=== PATIENT | female | born 1940 | race Caucasian/White ===

== ENCOUNTER 2022-08-25 09:24 | Observation (INO) | payer OTHER, SELFPAY ==
--- NOTE | ~2022-08-25 | CT_ITS ---
EXAMINATION: CT abdomen pelvis wo con DATE: 08/25/2022 10:47 INDICATION: Right upper quadrant abdominal pain, nausea and vomiting. TECHNIQUE: Computed tomography (CT) of the abdomen and pelvis was performed without intravenous contr ast. (The patient reportedly has an iodine allergy.) Automated exposure control and iterative reconst ruction technique were employed. Exam dose: 1126.25 mGy-cm total exam DLP. COMPARISON: None. FINDINGS: There is moderate elevation of the right diaphragm and mild right basilar atelectasis. Normal heart size. Coronary artery calcifications. No pericardial effusion. Slight right pleural effu aimee. There is cholelithiasis. There is gallbladder wall thickening and wide pericholecystic fat stranding, consistent with acute cholecystitis. There is some fat stranding around the pancreatic head and neck and to lesser extent body. Acute inte rstitial pancreatitis is not excluded. No hepatic, splenic, pancreatic space-occupying mass lesion. Normal morphology of the adrenal glands. 1.7 cm probable cyst in the lower pole right kidney. Pinpoint nonobstructing lower pole left renal calculus. No ureteral calculus or hydroureteronephrosis . The urinary bladder is evacuated. Status post hysterectomy. There is atherosclerotic calcification but normal caliber of the abdominal aorta. No intraperitoneal or retroperitoneal or pelvic mass lesion or adenopathy or ascites. There are numerous diverticula of the sigmoid and descending colon, with minimal involvement of the t ransverse colon; no CT evidence of diverticulitis. No bowel obstruction or intraperitoneal free air. There is a small amount of free fluid in the dependent pelvis on the right. Prominent bilateral hip osteoarthritis. No suspicious osteolytic or osteoblastic lesions IMPRESSION: Acute cholecystitis. Cholelithiasis Peripancreatic fat stranding; acute interstitial pancreatitis is suggested 1.7 cm probable cyst, lower pole right kidney Pinpoint nonobstructing lower pole left renal calculus Diverticulosis of the colon Status post hysterectomy Reviewed, dictated and finalized at [facility] Reviewed, dictated and finalized at [facility].
[2022-08-25 09:28] VITALS: BP 138/76; PULSE 88; RESP 18; TEMP 37.1; O2SAT 97
[2022-08-25 09:46] LABS: Hematocrit 41.1 % (37.0-47.0); Hemoglobin 13.6 g/dL (12.0-15.0); Mean Corpuscular HGB Conc 33.1 g/dl (32-36); Mean Corpuscular Volume 84.6 fl (80-100); Mean Platelet Volume 9.8 fl (7.4-10.4); Platelet Count Result 265 k/mm3 (150-375); Red Blood Count 4.86 M/mm3 (4.2-5.4); Red Cell Distribution Width 14.6 % (11.5-14.5); White Blood Count 27.9 K/mm3 (4.5-10.0)
[2022-08-25 09:54] LABS: Alanine Aminotransferase 18 U/L (6-35); Alkaline Phosphatase 112 U/L (38-126); Anion Gap 9 mmol/L (8-16); Aspartate Amino Transferase 23 U/L (14-36); Bilirubin,Total 1.3 mg/dL (0.2-1.3); Blood Urea Nitrogen 19 mg/dL (7-17); Calcium 8.8 mg/dL (8.4-10.2); Carbon Dioxide 27 mmol/L (22-30); Chloride 94 mmol/L (98-107); Estimated CRCL calculation 48 ml/min; Estimated Glomerular Filt Rate > 60; Glucose 116 mg/dL (65-110); Potassium 3.5 mmol/L (3.4-5.0); Sodium 130 mmol/L (137-145)
[2022-08-25 10:05] LABS: Appearance Urine Clear (Clear); Bilirubin Urine 1+ (Negative); Blood Urine 2+ (Negative); Color Urine Yellow (Yellow); Glucose Urine UA Negative (Negative); Ketones Urine Trace mg/dL (Negative); Leukocyte Esterase Ur Negative LEU/UL (Negative); Nitrate Urine Negative (Negative); Protein Urine 2+ mg/dL (Negative)
[2022-08-25 10:09] LABS: Lipase < 10 U/L (23-300)
[2022-08-25 10:13] LABS: Bacteria Urine 2+ /hpf; Cellular Casts Urine Present /lpf; Mucus Urine Rare /lpf; Squamous Epithelial Cell Urine Few /hpf (Few)
[2022-08-25 10:14] LABS: Add Urine Microscopic? YES
--- NOTE | 2022-08-25 10:21 | ED.ABDPAIN ---
HPI - Abdominal Pain General Chief Complaint: Abdominal Pain <EDEL Mccann Last Filed: 08/25/22 15:23> Stated Complaint: ABD PAIN <EDEL Mccann Last Filed: 08/25/22 15:23> Time Seen by Provider: 08/25/22 09:58 <EDEL Mccann Last Filed: 08/25/22 15:23> Source: patient <EDEL Mccann Last Filed: 08/25/22 15:23> Mode of arrival: ambulatory <EDEL Mccann Last Filed: 08/25/22 15:23> Limitations: no limitations <EDEL Mccann Last Filed: 08/25/22 15:23> History of Present Illness HPI narrative: Patient is an 82-year-old female who presents to the ED with report of abdominal pain, nausea, vomiting. Patient reports she first developed pain in her upper abdomen and nausea 2 days ago. She had [place] food Wednesday night and thought it may be food poisoning. She has taken her daughters Phenergan and leftover [place] at home which does provide some relief. Pain became worse today, which prompted her presentation. She states it has been constant for the most part. She had 1 episode of diarrhea this morning, no rectal bleeding. No fever. No urinary symptoms. She has not taken anything for her pain today. <EDEL Mccann Last Filed: 08/25/22 15:23> Related Data Home Medications: Home Medications Medication Instructions Recorded Confirmed aspirin 81 mg tablet 81 mg PO DAILY 08/25/22 08/25/22 calcium 600 mg (1,500 mg)-vit 600 tablet PO DAILY 08/25/22 08/25/22 C-vit D2 200 unit-vit E-minerals tablet citalopram 20 mg tablet 10 mg PO DAILY 08/25/22 08/25/22 fluticasone furoate 200 200 inh inhalation DAILY 08/25/22 08/25/22 mcg-vilanterol 25 mcg/dose inhalation powder (Breo Ellipta) hydrochlorothiazide 12.5 mg tablet 12.5 mg PO DAILY 08/25/22 08/25/22 montelukast 10 mg tablet 10 mg PO DAILY 08/25/22 08/25/22 omeprazole 20 mg capsule,delayed 20 mg PO DAILY 08/25/22 08/25/22 release <EDEL Mccann Last Filed: 08/25/22 15:23> Allergies/Adverse Reactions: Allergies Allergy/AdvReac Type Severity Reaction Status Date / Time amoxicillin [From Augmentin] Allergy Rash Verified 08/25/22 09:55 azithromycin [From Zithromax] Allergy Rash Verified 08/25/22 09:55 clavulanic acid Allergy Rash Verified 08/25/22 09:55 [From Augmentin] doxycycline Allergy Rash Verified 08/25/22 09:55 iodine Allergy Anaphylaxis Verified 08/25/22 09:55 norepinephrine Allergy Unknown Verified 08/25/22 09:55 [From Levophed (bitartrate)] Sulfa (Sulfonamide Allergy Rash Verified 08/25/22 09:55 Antibiotics) <EDEL Mccann Last Filed: 08/25/22 15:23> Review of Systems Review of Systems: CONSTITUTIONAL: Denies fever, chills, or sweats. CARDIOVASCULAR: Denies chest pain. RESPIRATORY: Denies dyspnea. GASTROINTESTINAL: Reports upper abdominal pain, N/V/D. Denies rectal bleeding. GENITOURINARY: Denies dysuria or hematuria. <EDEL Mccann Last Filed: 08/25/22 15:23> All systems reviewed & are unremarkable except as noted in HPI and below <EDEL Mccann Last Filed: 08/25/22 15:23> [facility] Past Medical History Medical History: Medical History Asthma Depression GERD (gastroesophageal reflux disease) HTN (hypertension) <EDEL Mccann Last Filed: 08/25/22 15:23> Surgical History Surgical History: Surgical History (Updated 08/25/22 @ 17:01 by Rosalind Anderson NP) H/O cataract extraction History of hysterectomy History of tonsillectomy <EDEL Mccann Filed: 08/25/22 15:23> Family History Family History: Family History Mother Lung disease Son Acute myocardial infarction Son Involved in airplane accident <Carmen Duong PA-C - Last Filed:
[2022-08-25 10:47] LABS: Band Neutrophils Percent 14 % (0-6); Lymphocytes Absolute Manual 2.51 K/mm3 (1.1-4.5); Monocytes Absolute Manual 0.55 K/mm3 (0.1-0.90); Monocytes Percent Manual 2 % (3-9); Neutrophils Absolute Manual 24.83 K/mm3 (1.7-7.2); Neutrophils Percent Manual 75 % (46-73); Platelet Estimate Adequate (Adequate); Schistocytes None Seen (NORMAL); Total Cells Counted 100
[2022-08-25] MEDS: ONDANSETRON INJ 4 MG/2 ML VIAL IV PUSH (10:56)
[2022-08-25] MEDS: SODIUM CHLORIDE 0.9% IV 1,000 ML 999 ML IV CONT (10:56)
[2022-08-25 11:06] LABS: Lactic Acid Reflex 1.1 mmol/L (0.7-2.0)
[2022-08-25 11:21] VITALS: BP 144/60; PULSE 71; RESP 16; O2SAT 97
[2022-08-25] MEDS: metroNIDAZOLE 500 MG/ISO 100ML 500 MG/100 ML BAG 100 MG IVPB ×2 (12:08→22:57)
[2022-08-25] MEDS: CIPROFLOXACIN 400 MG/D5W 200ML 200 ML 200 MG IVPB ×2 (12:38→21:21)
--- NOTE | 2022-08-25 13:18 | PM.IMHP ---
H&P: HPI History of Present Illness Date/Time: 08/25/22 13:18 Chief Complaint: Abdominal pain Narrative: This is a 82-year-old female patient who was complaining of abdominal pain nausea vomiting. She has been complaining of right upper quadrant pain for at least the last 2 days. She ate some Italian food on Wednesday night and thought that she had food poisoning. The patient had taken her daughters [place] and Phenergan at home which provided some relief. Her pain became worse today and prompted her to come to the emergency room. The pain has been constant pain most of the time. She also had an episode of diarrhea this morning but no rectal bleeding. No fever chills. Her white count is found to be 27.9. Sodium is 130. She has 2+ urine bacteria. Abdominal pelvis CT was read as the following.MPRESSION:? Acute cholecystitis. Cholelithiasis Peripancreatic fat stranding; acute interstitial pancreatitis is suggested 1.7 cm probable cyst, lower pole right kidney Pinpoint nonobstructing lower pole left renal calculus Diverticulosis of the colon Status post hysterectomy Surgery has been consulted. The patient was started on Cipro and Flagyl. The surgeon has already seen the patient in the patient agrees to go on with surgery. The patient was started on Cipro and Flagyl on IV fluids in the emergency room. The patient is going to be admitted to observation status on the date of service of 08/25/2022. Review of Systems Review of Systems: See HPI All systems reviewed & are unremarkable except as noted in HPI and below Constitutional: Constitutional: Reports as per HPI and Reports no additional constitutional complaints Eyes: Eyes: Reports as per HPI and Reports no additional eye complaints ENT: Reports system reviewed and no additional complaints, except as documented and Reports Normal hearing present Cardiovascular: Cardiovascular: Reports no additional cardiovascular complaints Respiratory: Respiratory: Reports no additional respiratory complaints and Reports no additional respiratory complaints Gastrointestinal: Gastrointestinal: Reports as per HPI and Reports no additional gastrointestinal complaints Musculoskeletal: Musculoskeletal: Reports no additional musculoskeletal complaints Integumentary/Breasts: Skin/Breast: Reports system reviewed and no additional complaints, except as docu and Reports as per HPI Neurologic: Reports system reviewed and no additional complaints, except as documented, Reports as per HPI and Reports Normal hearing present Psychiatric: Psychiatric: Reports no additional psychiatric complaints and Reports as per HPI Endocrine: Endocrine: Reports no additional endocrine complaints Hematologic/Lymphatic: Hematologic/Lymphatic: Reports no additional hematologic/lymphatic complaints Allergic/Immunologic: Allergic/Immunologic: Reports no additional allergic/immunologic complaints [facility] Past Medical History Medical History Asthma Depression GERD (gastroesophageal reflux disease) HTN (hypertension) Surgical History Surgical History (Updated 08/25/22 @ 17:01 by Rosalind Anderson NP) H/O cataract extraction History of hysterectomy History of tonsillectomy Family History Family History Mother Lung disease Son Acute myocardial infarction Son Involved in airplane accident Social History Social History (Updated 08/25/22 @ 16:54 by Rosalind Anderson NP) Social History: She is and lives alone. She has 3 children and her daughter christopher is the poa . 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 She is a lifelong nonsmoker. Code status full code Smoking status: Never smoker Alcohol intake: never Substance use: never Has the Lack of Transportation Kept You From Medical Appointments or From Getting Medications?: No Within the Past 12 Months, Were You Worried Whether Y
[2022-08-25 13:50] VITALS: BMI 33.5
--- NOTE | 2022-08-25 13:55 | ADMGEN ---
This patient, Jamia Palacios, was admitted to Medical Room 344-01. Patient/family oriented to hospital policies and general routines including ID bracelet, bed and alarms, visiting hours, pain management, procedures, bathroom and other care routines, personal items, smoking policy, room service/diet, and visiting hours. Information on how to activate the Rapid Response Team has been discussed. Patient/Family are encouraged to report perceived risks to care and to ask questions if they do not understand what they are told or what they should do.
[2022-08-25 14:00] VITALS: BP 122/60; PULSE 67; RESP 18; TEMP 36.8; O2SAT 94
--- NOTE | 2022-08-25 15:02 | PM.CNGS ---
Assessment and Plan Assessment and plan (1) Cholelithiasis and acute cholecystitis without obstruction: Code(s): K80.00 - Calculus of gallbladder with acute cholecystitis without obstruction Status: Acute Assessment and Plan: I have reviewed the CT and discussed the findings with the patient. She has evidence of acute calculous cholecystitis and has been having symptoms for about 2-3 days. Her white count was significantly on admission, but this could be due in part to her significant dehydration from 90 dinner drinking much for the past couple days. She was started empirically on Cipro and Flagyl for possible infectious concerns related to cholangitis. I discussed options of nonoperative treatment versus proceeding with urgent laparoscopic cholecystectomy. Patient would like to proceed with surgery. Will plan to proceed with laparoscopic cholecystectomy, possible open. Discussed procedure, risks, benefits, and alternatives. Questions were answered. (2) HTN (hypertension): Code(s): I10 - Essential (primary) hypertension Status: Acute (3) Asthma: Code(s): J45.909 - Unspecified asthma, uncomplicated Status: Acute History of Present Illness Consult details Consult date: 08/25/22 Reason for consult: other (cholecystitis) Requesting physician: Carmen Duong PA-C Narrative: This is an 82-year-old woman who I am asked to see for acute cholecystitis. She presented to the emergency department today with abdominal pain that has been worsening over the past 3 days. She had eaten [place] for dinner Wednesday night and woke up Wednesday morning with right upper quadrant abdominal pain. She thought maybe it was food poisoning felt ill and did not get out of bed for close to 2 days. She was having some nausea and dry heaves. She denies any fevers or chills. She has never experienced anything like this before. She denies any prior history of liver or pancreatic problems. A CT in the emergency department showed evidence of acute calculous cholecystitis. She is now being admitted for further treatment. Review of Systems Review of Systems: All systems reviewed & are unremarkable except as noted in HPI and below Constitutional: Constitutional: Denies chills and Denies fever(s) Eyes: Eyes: Denies change in vision ENT: Denies hearing loss, Denies neck pain and Denies sore throat Cardiovascular: Cardiovascular: Denies chest pain and Denies dyspnea Respiratory: Respiratory: Denies cough, Denies dyspnea and Denies wheezing Gastrointestinal: Gastrointestinal: Reports as per HPI Genitourinary: Genitourinary: Denies hematuria and Denies dysuria Musculoskeletal: Musculoskeletal: Denies arthralgias, Denies joint swelling and Denies neck pain Allergic/Immunologic: Allergic/Immunologic: Denies wheezing [facility] Past Medical History Medical History (Updated 08/25/22 @ 11:56 by Carmen Duong PA-C) Asthma Depression GERD (gastroesophageal reflux disease) HTN (hypertension) Surgical History Surgical History (Updated 08/25/22 @ 13:19 by Rosalind Anderson NP) H/O cataract extraction History of hysterectomy History of tonsillectomy Family History Family History Mother Lung disease Son Acute myocardial infarction Son Involved in airplane accident Social History Social History (Updated 08/25/22 @ 13:23 by Rosalind Anderson NP) Social History: alone 3 c and daughter christopher [facility] . [facility] Smoking status: Never smoker Alcohol intake: never Substance use: never Has the Lack of Transportation Kept You From Medical Appointments or From Getting Medications?: No Within the Past 12 Months, Were You Worried Whether Your Food Would Run Out Before You Got Money to Buy More?: Never True What is Your Housing Situation Today?: I Have Housing Are You Worried That in the Next 2 Months, You May Not Have Your
[2022-08-25] MEDS: MORPHINE SULFATE (*CRX) 4 MG/ML INJ IV PUSH (16:26)
[2022-08-25] MEDS: SODIUM CHLORIDE 0.9% IV 1,000 ML 125 ML IV CONT (16:26)
[2022-08-25 20:00] VITALS: PULSE 73; RESP 20; O2SAT 95
[2022-08-25 20:24] VITALS: BP 136/66; PULSE 73; RESP 20; TEMP 36.5; O2SAT 95
[2022-08-25] MEDS: PANTOPRAZOLE SODIUM IV 40 MG VIAL IV PUSH (21:22)
[2022-08-26] VITALS (12 sets, daily range): BP systolic 112–158; BP diastolic 41–73; PULSE 66–81; RESP 14–22; TEMP 36–37.5; O2SAT 93–99
[2022-08-26] MEDS: SODIUM CHLORIDE 0.9% IV 1,000 ML 125 ML IV CONT ×2 (03:32→18:10)
[2022-08-26] MEDS: metroNIDAZOLE 500 MG/ISO 100ML 500 MG/100 ML BAG 100 MG IVPB ×3 (06:01→21:04)
[2022-08-26 06:57] LABS: Hemoglobin 11.1 g/dL (12.0-15.0); Mean Corpuscular HGB Conc 31.7 g/dl (32-36); Mean Corpuscular Hemoglobin 27.4 pg (26-34); Mean Corpuscular Volume 86.4 fl (80-100); Platelet Count Result 234 k/mm3 (150-375); Red Blood Count 4.05 M/mm3 (4.2-5.4); Red Cell Distribution Width 14.6 % (11.5-14.5); White Blood Count 20.7 K/mm3 (4.5-10.0)
[2022-08-26 07:01] LABS: Alanine Aminotransferase 15 U/L (6-35); Alkaline Phosphatase 120 U/L (38-126); Anion Gap 9 mmol/L (8-16); Aspartate Amino Transferase 19 U/L (14-36); Bilirubin,Total 0.9 mg/dL (0.2-1.3); Blood Urea Nitrogen 18 mg/dL (7-17); Carbon Dioxide 28 mmol/L (22-30); Chloride 99 mmol/L (98-107); Estimated CRCL calculation 43 ml/min; Estimated Glomerular Filt Rate 60; Glucose 85 mg/dL (65-110); Potassium 3.1 mmol/L (3.4-5.0); Sodium 136 mmol/L (137-145)
[2022-08-26 08:07] LABS: Lipase < 10 U/L (23-300)
[2022-08-26] MEDS: POTASSIUM CHLORIDE INJ 40 MEQ in SODIUM CHLORIDE 0.9% IV 500 ML 130 MEQ IVPB (09:47)
[2022-08-26] MEDS: PANTOPRAZOLE SODIUM IV 40 MG VIAL IV PUSH ×2 (09:49→21:01)
[2022-08-26] MEDS: CIPROFLOXACIN 400 MG/D5W 200ML 200 ML 200 MG IVPB ×2 (10:57→19:59)
[2022-08-26] MEDS: FLUTICASONE/SALMETEROL 230-21 MCG INHALER 1 PUFF 2 PUFF INHALATION (11:10)
[2022-08-26] MEDS: CHLORHEXIDINE GLUCONATE 4% SOL 120 ML BTL 1 APPLIC TOPICAL (13:01)
[2022-08-26] MEDS: LORazepam INJ (*CRX) 2 MG/ML VIAL 0.25 MG IV PUSH (13:22)
--- NOTE | 2022-08-26 14:17 | WPDANESEPPF ---
Anes - Initial Pre Proc Eval Procedure: Operation Date: 08/26/22 15:00 Proposed Procedures p Laparoscopic Cholecystectomy, Possible Open - Thad Lorenzo DO Date/Time: 08/26/22 14:17 Surgeon: Kaden Orellana MD Pre Op Diagnosis: Acute Cholecystitis Patient Data Age: 82 Gender: F Height: 1.6 m Weight: 86 kg Last Vital Signs Temp 36.7 C 08/26/22 13:45 Pulse 72 08/26/22 13:45 Resp 14 08/26/22 13:45 BP 122/41 L 08/26/22 13:45 Pulse Ox 95 08/26/22 13:45 O2 Del Method Room Air 08/26/22 13:45 Allergies Allergy/AdvReac Type Severity Reaction Status Date / Time amoxicillin [From Augmentin] Allergy Rash Verified 08/25/22 09:55 azithromycin [From Zithromax] Allergy Rash Verified 08/25/22 09:55 clavulanic acid Allergy Rash Verified 08/25/22 09:55 [From Augmentin] doxycycline Allergy Rash Verified 08/25/22 09:55 iodine Allergy Anaphylaxis Verified 08/25/22 09:55 norepinephrine Allergy Unknown Verified 08/25/22 09:55 [From Levophed (bitartrate)] Sulfa (Sulfonamide Allergy Rash Verified 08/25/22 09:55 Antibiotics) Home Medications Medication Instructions Recorded Confirmed Type aspirin 81 mg tablet 81 mg PO DAILY 08/25/22 08/25/22 History calcium 600 mg (1,500 mg)-vit 600 tablet PO DAILY 08/25/22 08/25/22 History C-vit D2 200 unit-vit E-minerals tablet citalopram 20 mg tablet 10 mg PO DAILY 08/25/22 08/25/22 History fluticasone furoate 200 200 inh inhalation DAILY 08/25/22 08/25/22 History mcg-vilanterol 25 mcg/dose inhalation powder (Breo Ellipta) hydrochlorothiazide 12.5 mg tablet 12.5 mg PO DAILY 08/25/22 08/25/22 History montelukast 10 mg tablet 10 mg PO DAILY 08/25/22 08/25/22 History omeprazole 20 mg capsule,delayed 20 mg PO DAILY 08/25/22 08/25/22 History release Laboratory Tests 08/26/22 08/26/22 08/26/22 05:42 05:42 05:42 WBC 20.7 K/mm3 H K/mm3 (4.5-10.0) RBC 4.05 M/mm3 L M/mm3 (4.2-5.4) Hgb 11.1 g/dL L g/dL (12.0-15.0) Hct 35.0 % L % (37.0-47.0) MCV 86.4 fl fl (80-100) MCH 27.4 pg pg (26-34) MCHC 31.7 g/dl L g/dl (32-36) RDW 14.6 % H % (11.5-14.5) Plt Count 234 k/mm3 k/mm3 (150-375) MPV 11.0 fl H fl (7.4-10.4) Sodium 136 mmol/L L mmol/L (137-145) Potassium 3.1 mmol/L L mmol/L (3.4-5.0) Chloride 99 mmol/L mmol/L (98-107) Carbon Dioxide 28 mmol/L mmol/L (22-30) Anion Gap 9 mmol/L mmol/L (8-16) BUN 18 mg/dL H mg/dL (7-17) Creatinine 0.90 mg/dL mg/dL (0.7-1.0) Estim Creat Clear Calc 43 ml/min ml/min Estimated GFR 60 (59 - ) Glucose 85 mg/dL mg/dL (65-110) Calcium 8.0 mg/dL L mg/dL (8.4-10.2) Magnesium 2.0 mg/dL mg/dL (1.6-2.3) Total Bilirubin 0.9 mg/dL mg/dL (0.2-1.3) AST 19 U/L U/L (14-36) ALT 15 U/L U/L (6-35) Alkaline Phosphatase 120 U/L U/L (38-126) Total Protein 6.0 g/dL L g/dL (6.3-8.2) Albumin 3.0 g/dL L g/dL (3.5-5.1) Lipase < 10 U/L L U/L (23-300) Blood Type Antibody Screen 08/26/22 09:08 WBC RBC Hgb Hct MCV MCH MCHC RDW Plt Count MPV Sodium Potassium Chloride Carbon Dioxide Anion Gap BUN Creatinine Estim Creat Clear Calc Estimated GFR Glucose Calcium Magnesium Total Bilirubin AST ALT Alkaline Phosphatase Total Protein Albumin Lipase Blood Type O Positive Antibody Screen Negative Patient hx anesthesia problems: none Family hx anesthesia problems: none Results Review: All pre-operative results and documents have been reviewed as part of the p
[2022-08-26] MEDS: LACTATED RINGERS 1,000 ML 30 ML IV CONT (14:23)
--- NOTE | 2022-08-26 14:45 | WPDHPUPDATE1 ---
History and Physical Update Update Date/Time: 08/26/22 14:45 History and Physical has been reviewed, including an updated exam of the patient. There are NO changes in the patient's condition. Risks, benefits, and alternatives have been discussed and questions answered. Patient agrees to proceed with procedure.
--- NOTE | 2022-08-26 14:52 | PM.IMPN ---
Progress Note: A&P Assessment and Plan (1) Cholelithiasis and acute cholecystitis without obstruction: Code(s): K80.00 - Calculus of gallbladder with acute cholecystitis without obstruction Status: Acute Assessment and Plan: Patient presented to the ED with c/o RUQ pain, CT abd/pelvis with cholelithiasis and gallbladder wall thickness consistent with acute cholecystitis. General surgery consulted and plan for OR laparoscopic cholecystectomy today 08/26/22. LFTs within normal limits Continue with Cipro and Flagyl, started 08/25/22 NPO for surgery. Continue NS@125 mL/hour while NPO IV analgesics as needed for pain. IV antiemetics as needed nausea/vomiting. aspirin held preop CT abd/pelvis also noted to have peripancreatic fat stranding concerning for acute pancreatitis. Lipase<10 DVT pharmacologic prophylaxis per surgery postop (2) HTN (hypertension): Qualifiers: Hypertension type: primary hypertension Qualified Code(s): I10 - Essential (primary) hypertension Code(s): I10 - Essential (primary) hypertension Status: Chronic Assessment and Plan: Chronic, stable. Monitor vitals. Resume HCTZ postop as BP allows (3) Depression: Qualifiers: Depression Type: unspecified Qualified Code(s): F32.A - Depression, unspecified Code(s): F32.A - Depression, unspecified Status: Chronic Assessment and Plan: Chronic, stable. Continue citalopram at home dose. (4) Asthma: Qualifiers: Asthma severity: unspecified severity Asthma persistence: persistent Asthma complication type: uncomplicated Qualified Code(s): J45.909 - Unspecified asthma, uncomplicated Code(s): J45.909 - Unspecified asthma, uncomplicated Status: Chronic Assessment and Plan: Chronic, not in acute exacerbation, appears well controlled Started on Breo Ellipta for LABA/ICS maintenance. Symbicort not on formulary. Continue albuterol PRN SOB or wheezing. Resume Singulair when able to take PO (5) GERD (gastroesophageal reflux disease): Qualifiers: Esophagitis presence: without esophagitis Qualified Code(s): K21.9 - Gastro-esophageal reflux disease without esophagitis Code(s): K21.9 - Gastro-esophageal reflux disease without esophagitis Status: Chronic Assessment and Plan: Chronic, stable. Continue PPI IV until able to take PO Plan CODE STATUS: FULL CODE Disposition: home when medically stable. Time Spent With Patient Time with patient: 15 - 25 minutes Subjective Date/time seen: 08/26/22 14:52 She reports some RUQ pain, but it is improved from admission. No nausea or emesis. She is nervous about having surgery today. She denies h/o adverse events with anesthesia. No chest pain, SOB, dizziness, fever, chills, rigors or diaphoresis. Review of Systems Review of Systems: All systems reviewed & are unremarkable except as noted in HPI and below Exam Narrative: General:? Well-nourished older adult female, lying in bed, no acute distress, non-toxic appearing. Neuro: awake, alert and oriented x4, speech clear, no focal neuro deficits HEENT:? normocephalic, atraumatic, pupils equal and round, sclerae anicteric Neck: no JVD Respiratory: clear to auscultation bilaterally, respirations even and unlabored. No adventitious breath sounds. Cardio: regular rate, regular rhythm with S1-S2, no murmurs, gallops or rubs. Abdomen:? soft, obese, tender to palpation RUQ and epigastric region, bowel sounds present all 4 quadrants Extremities: no edema, erythema, or tenderness to palpation, dorsalis pedis pulses 2+ bilaterally, Grossly normal ROM all extremities. Skin: no rashes or lesions, warm and dry, fair complexion Psych: mildly anxious mood and affect, pleasant and cooperative. Objective Data Vital Signs Vital Signs: Vital Signs - 24 hr 08/25/22 20:24 08/25/22 20:00 08/26/22 05:06 Temperature 97.7 F 97.7 F Pulse R
[2022-08-26] MEDS: BUPIVACAINE/EPINEPHRINE 0.25% 50 ML VIAL 30 ML INFILTRATE (16:06)
--- NOTE | 2022-08-26 16:19 | W.PM.PROC2 ---
Procedure Note - Detailed Date of Procedure 08/26/22 Pre-op Diagnosis Acute Calculous Cholecystitis Post-op Diagnosis Same (Acute gangrenous cholecystitis) Procedure Performed Laparoscopic Cholecystectomy Surgeon Thad Lorenzo, Anesthesia General and Local (0.5% bupivacaine) Indications This is an 82-year-old woman who presented to the emergency department with right upper quadrant pain that started 3 days ago. She states that her pain started the morning after she ate [place] food for dinner. She had persistent pain since the started. She has had nausea, but no vomiting. In the emergency department she was noted to have a significantly elevated white blood count at 23,[address] showed evidence of acute calculous cholecystitis. She was admitted and placed on broad-spectrum IV antibiotics. Discussions were made with the patient about treatment options and decision was made to proceed with laparoscopic cholecystectomy, possible open. Findings Laparoscopic cholecystectomy was performed. The gallbladder appeared to have some pericholecystic adhesions and once these adhesions were taken down I was able to identify the gallbladder. The gallbladder appeared gangrenous with purulence fluid around the surface of the gallbladder between the gallbladder and omentum. There was also evidence of necrotic wall of the gallbladder at the liver bed. The cystic duct was identified and appeared normal in size. There were multiple large gallstones within the gallbladder. The gallbladder was removed and sent to the lab for pathology. I did irrigate the right upper quadrant with 2 L of normal saline. I then placed a 19 round Harjinder drain and positioned this up near the gallbladder fossa. Description of Procedure Procedure as well as risks, benefits, and alternatives were discussed with patient. Written consent was obtained and placed in chart prior to procedure. The patient was brought back to surgical suite. Patient was placed in supine position on operating table. Time-out was done to confirm patient and procedure. Patient was then intubated by the anesthesia department. Abdomen was prepped and draped in sterile fashion using chlorhexidine prep. 0.5% bupivacaine with epinephrine was infiltrated at each site of incision. A 5 millimeter incision was made near the umbilicus, and a 5 millimeter Optiview trocar was advanced through the abdominal layers under direct visualization. Once inside the abdominal cavity, carbon dioxide was insufflated to create a pneumoperitoneum. The camera was inserted and the abdomen was inspected. No immediate abnormalities were identified. The patient was placed in reverse Trendelenburg position and rotated slightly to the left. An 11 millimeter incision was made in the subxiphoid region, and an 11 millimeter trocar was inserted under direct visualization. Two 5 millimeter incisions were made in the right upper quadrant, and two 5 millimeter trocars were inserted under direct visualization. The gallbladder was identified and grasped at the fundus and retracted superiorly. It was then grasped at the infundibulum retracted laterally. Careful dissection around the neck of the gallbladder was performed using blunt dissection with a [place] grasper and hook electrocautery. The cystic duct was identified, and a window was created behind it. The cystic artery was also identified and a window was created behind it. The critical view of safety was identified, visualizing the cystic duct running directly into the neck of the gallbladder, and the cystic artery running directly into the wall of the gallbladder. A 5 millimeter clip attendant lodging facilities was then used to place 2 clips proximally and 1 clip distally on both the cystic duct and cystic artery. They were then both transected using endoscopic scissors. Once safely away from the estrella hepatitis, the gallbladder was dissected free from the liver bed using hook electrocautery. Hemostasis was ac
[2022-08-26] MEDS: ACIDOPHILUS/BULGARICUS CHEWABLE TABLET 1 TABLET PO ×2 (18:24→21:01)
[2022-08-26] MEDS: HYDROcodone/acetaminophen (*CRX) 5-325 MG TABLET 1 TAB PO (19:03)
--- NOTE | 2022-08-26 21:58 | PCRCNOTE ---
Window of time for administration has passed. See next scheduled administration.
[2022-08-27] VITALS (7 sets, daily range): BP systolic 129–146; BP diastolic 54–65; PULSE 72–87; RESP 16–18; TEMP 36.4–36.9; O2SAT 92–95
[2022-08-27] MEDS: SODIUM CHLORIDE 0.9% IV 1,000 ML 125 ML IV CONT (05:22)
[2022-08-27] MEDS: metroNIDAZOLE 500 MG/ISO 100ML 500 MG/100 ML BAG 100 MG IVPB ×3 (05:22→21:22)
[2022-08-27] MEDS: HYDROcodone/acetaminophen (*CRX) 5-325 MG TABLET 1 TAB PO (05:35)
[2022-08-27 06:12] LABS: Basophils Absolute Auto 0.1 K/mm3 (0.0-0.1); Basophils Percent Auto 0.4 % (0.2-1.2); Eosinophils Absolute Auto 0.1 K/mm3 (0-0.3); Eosinophils Percent Auto 0.3 % (0-4.4); Hematocrit 34.9 % (37.0-47.0); Hemoglobin 10.9 g/dL (12.0-15.0); Immature Granulocyte Percent A 1.8 % (0-0.5); Lymphocytes Absolute Auto 0.43 K/mm3 (0.9-3.2); Lymphocytes Percent Auto 2.6 % (18.3-44.2); Mean Corpuscular HGB Conc 31.2 g/dl (32-36); Mean Corpuscular Hemoglobin 27.3 pg (26-34); Mean Corpuscular Volume 87.3 fl (80-100); Mean Platelet Volume 10.4 fl (7.4-10.4); Monocytes Absolute Auto 0.7 K/mm3 (0.1-0.6); Monocytes Percent Auto 4.1 % (2.6-8.5); Neutrophils Absolute Auto 15.1 K/mm3 (1.3-6.7); Neutrophils Percent Auto 90.8 % (45.5-73.1); Platelet Count Result 254 k/mm3 (150-375); White Blood Count 16.6 K/mm3 (4.5-10.0)
[2022-08-27 06:31] LABS: Alanine Aminotransferase 19 U/L (6-35); Alkaline Phosphatase 131 U/L (38-126); Anion Gap 7 mmol/L (8-16); Aspartate Amino Transferase 29 U/L (14-36); Bilirubin,Total 0.6 mg/dL (0.2-1.3); Blood Urea Nitrogen 21 mg/dL (7-17); Calcium 7.7 mg/dL (8.4-10.2); Carbon Dioxide 24 mmol/L (22-30); Chloride 104 mmol/L (98-107); Estimated CRCL calculation 39 ml/min; Estimated Glomerular Filt Rate 53; Glucose 125 mg/dL (65-110); Sodium 135 mmol/L (137-145)
[2022-08-27] MEDS: FLUTICASONE/SALMETEROL 230-21 MCG INHALER 1 PUFF 2 PUFF INHALATION ×2 (07:45→20:07)
[2022-08-27] MEDS: CITALOPRAM HYDROBROMIDE 10 MG TABLET PO (10:18)
[2022-08-27] MEDS: ACIDOPHILUS/BULGARICUS CHEWABLE TABLET 1 TABLET PO ×3 (10:18→20:19)
[2022-08-27] MEDS: PANTOPRAZOLE SODIUM IV 40 MG VIAL IV PUSH (10:18)
[2022-08-27] MEDS: ENOXAPARIN 40 MG/0.4 ML SYRINGE SUB-Q (10:18)
[2022-08-27] MEDS: MONTELUKAST SODIUM 10 MG TABLET PO (10:18)
[2022-08-27] MEDS: CIPROFLOXACIN 400 MG/D5W 200ML 200 ML 200 MG IVPB ×2 (10:22→20:19)
--- NOTE | 2022-08-27 10:50 | PM.PNGS ---
Progress Note: A&P Assessment and Plan (1) Acute gangrenous cholecystitis: Code(s): K81.0 - Acute cholecystitis Status: Acute Assessment and Plan: Doing well on POD#1. Continue advancing diet as tolerated. Stop IV fluids. Continue Cipro and Flagyl. Repeat labs in AM. Increase activity. Subjective Subjective Date/Time Seen: 08/27/22 10:50 Interval history: Doing well today. Tolerated clears and advancing to full liquids for lunch. Pain controlled. No fevers. Exam GI: Inspection: incision (intact with mild bruising) and other (SEAMUS drain with minimal serosanguinous output) GI Palp: Yes Soft to palpation and Yes Tenderness to palpation present (GI) (incisional) Objective Data Vital Signs Vital Signs: Vital Signs - 24 hr 08/26/22 13:45 08/26/22 16:22 08/26/22 16:35 Temperature 36.7 C 37.5 C Pulse Rate 72 76 79 Respiratory Rate 14 20 20 Blood Pressure 122/41 L 133/60 144/60 H Pulse Oximetry 95 98 99 Oxygen Delivery Room Air Simple Face Mask Simple Face Mask Oxygen Flow Rate 10 10 08/26/22 16:50 08/26/22 17:05 08/26/22 17:20 Temperature Pulse Rate 81 79 75 Respiratory Rate 22 H 22 H 22 H Blood Pressure 148/66 H 137/73 144/71 H Pulse Oximetry 95 97 96 Oxygen Delivery Room Air Nasal Cannula Nasal Cannula Oxygen Flow Rate 3 3 08/26/22 17:45 08/26/22 18:00 08/26/22 18:30 Temperature 36.1 C L 36.0 C L 36.4 C Pulse Rate 76 75 75 Respiratory Rate 22 H 20 20 Blood Pressure 152/66 H 158/68 H 157/72 H Pulse Oximetry 95 95 95 Oxygen Delivery Oxygen Flow Rate 08/26/22 19:50 08/26/22 20:00 08/27/22 00:04 Temperature 36.8 C 36.9 C Pulse Rate 76 76 74 Respiratory Rate 18 18 18 Blood Pressure 148/55 H 139/60 Pulse Oximetry 93 93 93 Oxygen Delivery Room Air Oxygen Flow Rate 08/27/22 05:18 08/27/22 07:46 08/27/22 07:46 Temperature 36.4 C Pulse Rate 72 87 87 Respiratory Rate 18 16 Blood Pressure 146/59 H Pulse Oximetry 94 92 Oxygen Delivery Room Air Oxygen Flow Rate Intake/Output Intake/Output: Intake & Output 08/24/22 08/25/22 08/26/22 08/27/22 23:59 23:59 23:59 23:59 Intake Total 1700 3520 1650 Output Total 830 15 Balance 1700 2690 1635 Meds/Results Medications: Active Medications Generic Name Dose Route Start Last Admin Trade Name Freq PRN Reason Stop Dose Admin Acetaminophen 650 mg 08/26/22 17:24 Acetaminophen 325 Mg Tablet PO Q6H PRN Mild Pain (1-3) or Fever Hydrocodone Bitart/Acetaminophen 1 tab 08/26/22 17:24 08/27/22 05:35 Hydrocodone/Acetaminophen (*Crx) 5-325 Mg Tablet PO 1 tab Q4H PRN Administration Pain Rated 4-6 Hydrocodone Bitart/Acetaminophen 1 tab 08/26/22 17:24 Hydrocodone/Acetaminophen (*Crx) 7.5-325 Mg Tablet PO Q4H PRN Pain Rated 7-10 Albuterol 2 puff 08/25/22 17:04 Albuterol Sulfate (*Sp) Aerosol 1 Puff INHALATION Q6HRT PRN Shortness Of Breath Citalopram Hydrobromide 10 mg 08/26/22 09:00 08/27/22 10:18 Citalopram Hydrobromide 10 Mg Tablet PO 10 mg DAILY GUILLERMO Administration Enoxaparin Sodium 40 mg 08/27/22 09:00 08/27/22 10:18 Enoxaparin 40 Mg/0.4 Ml Syringe SUB-Q 40 mg DAILY GUILLERMO Administration Hydralazine HCl 10 mg 08/25/22 17:05 Hydralazine Hcl 20 Mg/Ml Vial IV PUSH Q8H PRN Blood Pressure - High Ciprofloxacin/Dextrose 200 mls @ 200 mls/hr 08/25/22 21:00 08/27/22 10:22 Cipro 400 Mg/D5w 200 Ml IVPB 200 mls/hr Q12HR GUILLERMO Administration Metronidazole 500 mg in 100 mls @ 100 mls/hr 08/25/22 22:00 08/27/22 06:25 Flagyl 500 Mg/Iso Soln 100 Ml IVPB Infused Q8HR GUILLERMO Infusion Lactobacillus Acidophilus 1 tablet 08/26/22 17:24 08/27/22 10:18 Acidophilus/Bulgaricus Chewable Tablet PO 1 tablet QID GUILLERMO Administration Montelukast Sodium 10 mg 08/26/22 09:00 08/27/22 10:18 Montelukast Sodium 10 Mg Tablet PO 10 mg DAILY GUILLERMO Administration Morphine Sulfate 2 mg 11
--- NOTE | 2022-08-27 11:54 | P.PNAN_ITS ---
Anes - Prog Note Post-Op Date/Time: 08/27/22 11:54 Cardiovascular status: normal Respiratory status: normal Airway patency: baseline Mental status: baseline Post-Op hydration status: normal Vital Signs: Last Vital Signs Temp 36.4 C 08/27/22 05:18 Pulse 87 08/27/22 07:46 Resp 16 08/27/22 07:46 BP 146/59 H 08/27/22 05:18 Pulse Ox 92 08/27/22 07:46 O2 Del Method Room Air 08/27/22 07:46 O2 Flow Rate 3 08/26/22 17:20 Pain Score (VAS): 12/04 I/O: Intake & Output 08/26/22 08/27/22 08/27/22 23:59 07:59 15:59 Intake Total 1400 1350 300 Output Total 830 15 Balance 570 1335 300 Laboratory Tests 08/27/22 05:56 08/27/22 05:56 08/27/22 08/27/22 05:56 05:56 WBC 16.6 H RBC 4.00 L Hgb 10.9 L Hct 34.9 L MCV 87.3 MCH 27.3 MCHC 31.2 L RDW 15.0 H Plt Count 254 MPV 10.4 Immature Gran % (Auto) 1.8 H Neut % (Auto) 90.8 H Lymph % (Auto) 2.6 L [place] % (Auto) 4.1 Eos % (Auto) 0.3 Baso % (Auto) 0.4 Lymph # (Auto) 0.43 L [place] # (Auto) 0.7 H Eos # (Auto) 0.1 Baso # (Auto) 0.1 Abs Immat Gran (auto) 0.30 H Absolute Neuts (auto) 15.1 H Absolute Nucleated RBC 0.0 Nucleated RBC % 0.0 Sodium 135 L Potassium 4.0 Chloride 104 Carbon Dioxide 24 Anion Gap 7 L BUN 21 H Creatinine 1.00 Estim Creat Clear Calc 39 Estimated GFR 53 L Glucose 125 H Calcium 7.7 L Total Bilirubin 0.6 AST 29 ALT 19 Alkaline Phosphatase 131 H Total Protein 6.0 L Albumin 3.0 L Microbiology 08/25/22 09:57 Unspecified Urine Culture - Final Klebsiella pnemoniae Post-procedural complaints: none Patient Feedback: Patient satisfied with anesthetic care.
--- NOTE | 2022-08-27 12:01 | PM.IMPN ---
Progress Note: A&P Assessment and Plan (1) Cholelithiasis and acute cholecystitis without obstruction: Code(s): K80.00 - Calculus of gallbladder with acute cholecystitis without obstruction Status: Acute Assessment and Plan: Patient presented to the ED with c/o RUQ pain, CT abd/pelvis with cholelithiasis and gallbladder wall thickness consistent with acute cholecystitis. General surgery consulted laparoscopic cholecystectomy with SEAMUS drain done 08/26/22. OR notes indicate gangrenous gallbladder with purulent fluid around the gallbladder and between gallbladder and omentum. Continue with Cipro and Flagyl, started 08/25/22 Diet advanced per surgery. IV fluids saline locked since she is taking good PO. Continue IV analgesics as needed for pain, IV antiemetics as needed nausea/vomiting, ambulate in hallways and continue incentive spirometry. Resume aspirin when okay with surgery. CT abd/pelvis also noted to have peripancreatic fat stranding concerning for acute pancreatitis. Lipase<10 (2) HTN (hypertension): Qualifiers: Hypertension type: primary hypertension Qualified Code(s): I10 - Essential (primary) hypertension Code(s): I10 - Essential (primary) hypertension Status: Chronic Assessment and Plan: Chronic, stable. Monitor vitals. Resume HCTZ postop as BP allows (3) Depression: Qualifiers: Depression Type: unspecified Qualified Code(s): F32.A - Depression, unspecified Code(s): F32.A - Depression, unspecified Status: Chronic Assessment and Plan: Chronic, stable. Continue citalopram at home dose. (4) Asthma: Qualifiers: Asthma complication type: uncomplicated Asthma persistence: persistent Asthma severity: unspecified severity Qualified Code(s): J45.909 - Unspecified asthma, uncomplicated Code(s): J45.909 - Unspecified asthma, uncomplicated Status: Chronic Assessment and Plan: Chronic, not in acute exacerbation, appears well controlled Started on Breo Ellipta for LABA/ICS maintenance. Symbicort not on formulary. Continue albuterol PRN SOB or wheezing. Resume Singulair when able to take PO (5) GERD (gastroesophageal reflux disease): Qualifiers: Esophagitis presence: without esophagitis Qualified Code(s): K21.9 - Gastro-esophageal reflux disease without esophagitis Code(s): K21.9 - Gastro-esophageal reflux disease without esophagitis Status: Chronic Assessment and Plan: Chronic, stable. Continue PPI IV until able to take PO Plan CODE STATUS: FULL CODE Disposition: home when medically stable. Time Spent With Patient Time with patient: 15 - 25 minutes Subjective Date/time seen: 08/27/22 12:01 Patient found sitting up in the bed with family at bedside. She denies nausea or vomiting. She tolerated clear liquids for breakfast and has been advanced to full liquid diet for lunch. She reports some incisional pain and at the drain site. No dyspnea or dizziness. Review of Systems Review of Systems: All systems reviewed & are unremarkable except as noted in HPI and below Exam Narrative: General:? lying in bed, no acute distress, non-toxic appearing. Neuro: awake, alert and oriented x4, speech clear, no focal neuro deficits HEENT:? normocephalic, pupils equal and round, sclerae anicteric, mucous membranes moist. Neck: no JVD Respiratory: clear to auscultation bilaterally, respirations even and unlabored. No adventitious breath sounds. Cardio: regular rate, regular rhythm with S1-S2, no murmurs, gallops or rubs. Abdomen:? soft, obese, tender to palpation RUQ drain and LUQ lap sites, bowel sounds present all 4 quadrants Extremities: no edema, erythema, or tenderness to palpation, dorsalis pedis pulses 2+ bilaterally, Grossly normal ROM all extremities. Skin: no rashes or lesions, warm and dry, fair complexion. Lap sites x3 with surgical glue, small ecchymosis
[2022-08-27] MEDS: ACETAMINOPHEN 325 MG TABLET 650 MG PO (17:31)
[2022-08-28] MEDS: ACETAMINOPHEN 325 MG TABLET 650 MG PO (00:48)
[2022-08-28 04:52] VITALS: BP 142/50; PULSE 62; RESP 18; TEMP 36.7; O2SAT 94
[2022-08-28] MEDS: metroNIDAZOLE 500 MG/ISO 100ML 500 MG/100 ML BAG 100 MG IVPB ×2 (05:34→13:16)
[2022-08-28 05:41] LABS: Hematocrit 33.3 % (37.0-47.0); Hemoglobin 10.6 g/dL (12.0-15.0); Mean Corpuscular HGB Conc 31.8 g/dl (32-36); Mean Corpuscular Hemoglobin 27.4 pg (26-34); Mean Platelet Volume 10.4 fl (7.4-10.4); Platelet Count Result 277 k/mm3 (150-375); Red Blood Count 3.87 M/mm3 (4.2-5.4); Red Cell Distribution Width 15.2 % (11.5-14.5); White Blood Count 15.5 K/mm3 (4.5-10.0)
[2022-08-28 05:53] LABS: Anion Gap 12 mmol/L (8-16); Blood Urea Nitrogen 26 mg/dL (7-17); Calcium 7.9 mg/dL (8.4-10.2); Carbon Dioxide 23 mmol/L (22-30); Chloride 102 mmol/L (98-107); Estimated CRCL calculation 36 ml/min; Estimated Glomerular Filt Rate 47; Glucose 112 mg/dL (65-110); Potassium 3.4 mmol/L (3.4-5.0); Sodium 137 mmol/L (137-145)
[2022-08-28 08:19] VITALS: O2SAT 96
[2022-08-28] MEDS: FLUTICASONE/SALMETEROL 230-21 MCG INHALER 1 PUFF 2 PUFF INHALATION (08:19)
[2022-08-28] MEDS: POTASSIUM CHLORIDE 10 MEQ TABLET.ER PO (09:43)
[2022-08-28] MEDS: ACIDOPHILUS/BULGARICUS CHEWABLE TABLET 1 TABLET PO ×2 (09:43→13:16)
[2022-08-28] MEDS: CITALOPRAM HYDROBROMIDE 10 MG TABLET PO (09:43)
[2022-08-28] MEDS: MONTELUKAST SODIUM 10 MG TABLET PO (09:43)
[2022-08-28] MEDS: hydroCHLOROthiazide 12.5 MG CAPSULE PO (09:43)
[2022-08-28] MEDS: CIPROFLOXACIN 400 MG/D5W 200ML 200 ML 200 MG IVPB (09:43)
[2022-08-28] MEDS: ENOXAPARIN 40 MG/0.4 ML SYRINGE SUB-Q (09:44)
[2022-08-28] MEDS: PANTOPRAZOLE SODIUM IV 40 MG VIAL IV PUSH (09:44)
--- NOTE | 2022-08-28 11:30 | PM.PNGS ---
Progress Note: A&P Assessment and Plan (1) Acute gangrenous cholecystitis: Code(s): K81.0 - Acute cholecystitis Status: Acute Assessment and Plan: Doing well on POD#2. OK to discharge from surgical standpoint. Will remove drain today before discharge. Discharge instructions discussed with patient. Follow up in 2 weeks. Subjective Subjective Date/Time Seen: 08/28/22 11:30 Interval history: Pain controlled. Tolerating diet. No fevers. Exam GI: Inspection: incision (intact with mild bruising) and other (SEAMUS drain with minimal serosanguinous output) GI Palp: Yes Soft to palpation and Yes Tenderness to palpation present (GI) (incisional) Objective Data Vital Signs Vital Signs: Vital Signs - 24 hr 08/27/22 14:00 08/27/22 20:11 08/27/22 20:31 Temperature 36.4 C L 36.8 C Pulse Rate 73 74 Respiratory Rate 16 18 Blood Pressure 130/65 129/54 L Pulse Oximetry 95 95 95 Oxygen Delivery Room Air 08/27/22 20:00 08/28/22 04:52 08/28/22 08:19 Temperature 36.7 C Pulse Rate 74 62 Respiratory Rate 18 18 Blood Pressure 142/50 H Pulse Oximetry 95 94 96 Oxygen Delivery Room Air Room Air Intake/Output Intake/Output: Intake & Output 08/25/22 08/26/22 08/27/22 08/28/22 23:59 23:59 23:59 23:59 Intake Total 1700 3520 3480 1030 Output Total 830 15 Balance 1700 2690 3465 1030 Meds/Results Medications: Active Medications Generic Name Dose Route Start Last Admin Trade Name Freq PRN Reason Stop Dose Admin Acetaminophen 650 mg 08/26/22 17:24 08/28/22 00:48 Acetaminophen 325 Mg Tablet PO 650 mg Q6H PRN Administration Mild Pain (1-3) or Fever Hydrocodone Bitart/Acetaminophen 1 tab 08/26/22 17:24 08/27/22 05:35 Hydrocodone/Acetaminophen (*Crx) 5-325 Mg Tablet PO 1 tab Q4H PRN Administration Pain Rated 4-6 Hydrocodone Bitart/Acetaminophen 1 tab 08/26/22 17:24 Hydrocodone/Acetaminophen (*Crx) 7.5-325 Mg Tablet PO Q4H PRN Pain Rated 7-10 Albuterol 2 puff 11/01/22 17:04 Albuterol Sulfate (*Sp) Aerosol 1 Puff INHALATION Q6HRT PRN Shortness Of Breath Citalopram Hydrobromide 10 mg 08/26/22 09:00 08/28/22 09:43 Citalopram Hydrobromide 10 Mg Tablet PO 10 mg DAILY GUILLERMO Administration Enoxaparin Sodium 40 mg 08/27/22 09:00 08/28/22 09:44 Enoxaparin 40 Mg/0.4 Ml Syringe SUB-Q 40 mg DAILY GUILLERMO Administration Hydralazine HCl 10 mg 08/25/22 17:05 Hydralazine Hcl 20 Mg/Ml Vial IV PUSH Q8H PRN Blood Pressure - High Hydrochlorothiazide 12.5 mg 08/28/22 09:00 08/28/22 09:43 Hydrochlorothiazide 12.5 Mg Capsule PO 12.5 mg DAILY GUILLERMO Administration Ciprofloxacin/Dextrose 200 mls @ 200 mls/hr 08/25/22 21:00 08/28/22 10:47 Cipro 400 Mg/D5w 200 Ml IVPB Infused Q12HR GUILLERMO Infusion Metronidazole 500 mg in 100 mls @ 100 mls/hr 08/25/22 22:00 08/28/22 05:34 Flagyl 500 Mg/Iso Soln 100 Ml IVPB 100 mls/hr Q8HR GUILLERMO Administration Lactobacillus Acidophilus 1 tablet 08/26/22 17:24 08/28/22 09:43 Acidophilus/Bulgaricus Chewable Tablet PO 1 tablet QID GUILLERMO Administration Montelukast Sodium 10 mg 08/26/22 09:00 08/28/22 09:43 Montelukast Sodium 10 Mg Tablet PO 10 mg DAILY GUILLERMO Administration Morphine Sulfate 2 mg 08/26/22 17:24 Morphine Sulfate (*Crx) 2 Mg/Ml Inj IV PUSH Q2H PRN Pain Rated 4-6 Morphine Sulfate 4 mg 08/26/22 17:24 Morphine Sulfate (*Crx) 4 Mg/Ml Inj IV PUSH Q2H PRN Pain Rated 7-10 Ondansetron HCl 4 mg 08/25/22 12:25 Ondansetron Inj 4 Mg/2 Ml Vial IV PUSH Q4H PRN Nausea Pantoprazole Sodium 40 mg 08/27/22 09:00 08/28/22 09:44 Pantoprazole Sodium Iv 40 Mg Vial IV PUSH 40 mg QAM GUILLERMO Administration Potassium Chloride 10 meq 08/28/22 08:00 08/28/22 09:43 Potassium Chloride 10 Meq Tablet.Er PO 10 meq DAILY@0800 GUILLERMO Administration Fluticasone/Salmeterol 2 puff 08/25/22 20:00
[2022-08-28] MEDS: HYDROcodone/acetaminophen (*CRX) 5-325 MG TABLET 1 TAB PO (14:30)
--- NOTE | 2022-08-28 14:31 | PM.DS ---
DS: Admitting Diagnosis Discharge Date 08/28/2022 1431 Admitting Diagnosis Cholelithiasis and acute cholecystitis without obstruction: Essential hypertension, chronic Depression, chronic Asthma, mild persistent GERD, chronic DS: Discharge Diagnosis Discharge Diagnosis (1) Acute gangrenous cholecystitis: Code(s): K81.0 - Acute cholecystitis Status: Acute (2) HTN (hypertension): Qualifiers: Hypertension type: primary hypertension Qualified Code(s): I10 - Essential (primary) hypertension Code(s): I10 - Essential (primary) hypertension Status: Chronic (3) Depression: Qualifiers: Depression Type: unspecified Qualified Code(s): F32.A - Depression, unspecified Code(s): F32.A - Depression, unspecified Status: Chronic (4) Asthma: Qualifiers: Asthma complication type: uncomplicated Asthma persistence: persistent Asthma severity: unspecified severity Qualified Code(s): J45.909 - Unspecified asthma, uncomplicated Code(s): J45.909 - Unspecified asthma, uncomplicated Status: Chronic (5) GERD (gastroesophageal reflux disease): Qualifiers: Esophagitis presence: without esophagitis Qualified Code(s): K21.9 - Gastro-esophageal reflux disease without esophagitis Code(s): K21.9 - Gastro-esophageal reflux disease without esophagitis Status: Chronic DS: Summary Hospital Course Reason for hospitalization: abdominal pain Hospital Course: Jamia Palacios is an 82-year-old female with GERD, depression, hypertension, obesity and asthma. She presented to the ED for evaluation of abdominal pain, nausea, and vomiting.? She has had right upper quadrant pain for at least 2 days prior to admission.? She ate some [place] food the Wednesday night prior to admission and thought that she had food poisoning.? The patient had taken her daughters [place] and [place] at home which provided some relief.? Her pain became worse on the day of admission and prompted her to come in for evaluation.? The pain has been constant.? She had one associated episode of diarrhea, but no rectal bleeding.? No fever chills.? Her white count was found to be 27.9, Sodium 130, and UA showed 2+ bacteria.? Abdomen/pelvis CT showed:? Acute cholecystitis, cholelithiasis, peripancreatic fat stranding; and acute interstitial pancreatitis. Lipase was <10 and LFTs were within normal limits. She was started on IV ciprofloxacin and metronidazole. General surgery was consulted. The patient was admitted to the medical floor for further antibiotic therapy and surgical evaluation. Acute gangrenous choleycititis Patient presented to the ED with c/o RUQ pain, CT abd/pelvis with cholelithiasis and gallbladder wall thickness consistent with acute cholecystitis. General surgery was consulted and patient underwent laparoscopic cholecystectomy with SEAMUS drain done 08/26/22. OR notes indicated gangrenous gallbladder with purulent fluid around the gallbladder and between gallbladder and omentum. A SEAMUS drain was placed and she returned to the medical floor postoperatively. She was continued on Cipro and Flagyl, which was started started 08/25/22. Her diet was advanced per surgery. IV fluids were continued postop until the patient was taking oral fluids and then saline locked. Patient was treated with oral norco PRN. SEAMUS drain was pulled on 08/28/22. WBC was improved 15.5 at discharge. She was counseled on hygiene, diet, activity restrictions and follow up appointments. She was continued on home medications for hypertension, asthma, GERD and depression. She will have follow up in 2 weeks with general surgery. She was hemodynamically stable and tolerating regular consistency at discharge. Status at Discharge Cognitive/behavioral status at discharge: Alert and oriented x4, pleasant Functional status at discharge: uses cane/walker Overall status at discharge: patient is progressing back to baseline Time S
[2022-08-28 14:44] VITALS: BP 165/69; PULSE 70; RESP 22; TEMP 36.9; O2SAT 97
== END 2022-08-28 15:45 | disposition home or self-care (01) ==
LOC: ANHED 12:32 → ANH3MED 08-26 06:59
PROVIDERS: Nurse Practitioner Family; Physician Assistant; Surgery; Admitting Provider Internal Medicine; Emergency Provider Emergency Medicine; Visit Provider Internal Medicine
PROC: 0FT44ZZ Resection of Gallbladder, Percutaneous Endoscopic Approach (ICD-10-PCS; CPT 47562; principal; 2022-08-26 15:00)
DX: K80.00 Calculus of gallbladder with acute cholecystitis without obstruction (principal); I10 Essential (primary) hypertension; F32.A Depression, unspecified; J45.909 Unspecified asthma, uncomplicated; K21.9 Gastro-esophageal reflux disease without esophagitis; R82.71 Bacteriuria; B96.1 Klebsiella pneumoniae [K. pneumoniae] as the cause of diseases classified elsewhere; E87.1 Hypo-osmolality and hyponatremia; N20.0 Calculus of kidney; K57.30 Diverticulosis of large intestine without perforation or abscess without bleeding; D72.829 Elevated white blood cell count, unspecified; Z90.710 Acquired absence of both cervix and uterus; Z79.82 Long term (current) use of aspirin; Z79.51 Long term (current) use of inhaled steroids; Z79.899 Other long term (current) drug therapy; Z83.6 Family history of other diseases of the respiratory system; Z82.49 Family history of ischemic heart disease and other diseases of the circulatory system
CPT/HCPCS: 47562; 36415; 74176; 80048; 80053; 81001; 83605; 83690; 83735; 85025; 85027; 86850; 86900; 86901; 87077; 87086; 87186; 88304; 94640; 96361; 96365; 96366; 96367; 96375; 96376; 99285; A9270; C9113; G0378; J0131; J0744; J1100; J1650; J2060; J2270; J2405; J2704; J3010; J3480; J7030; J7040; J7120

== ENCOUNTER 2023-03-03 09:08 | Emergency (ER) | payer OTHER, SELFPAY ==
--- NOTE | ~2023-03-03 | XR_ITS ---
XR knee RT min 4V 03/03/2023 09:31 Indication: Right knee pain and swelling Procedure: 4 views right knee Comparison: No prior studies for comparison. Findings: There is moderate tricompartment osteoarthritis. There is chondrocalcinosis. Large joint ef fusion. No acute fracture or traumatic malalignment. Osteopenia. Impression: 1: No acute fracture. 2: Moderate tricompartment osteoarthritis with chondrocalcinosis. 3: Large joint effusion. Reviewed, dictated and finalized at location B. Impression: 1: No acute fracture. 2: Moderate tricompartment osteoarthritis with chondrocalcinosis. 3: Large joint effusion.
[2023-03-03 09:11] VITALS: BP 131/60; PULSE 69; RESP 16; TEMP 36.2; O2SAT 96
--- NOTE | 2023-03-03 09:56 | ED.LOWEXIN ---
HPI - Extremity Injury (Lower) General Chief Complaint: Extremity Injury, Lower Stated Complaint: right knee pain Time Seen by Provider: 03/03/23 09:23 History of Present Illness HPI Narrative: 83-year-old female history of arthritis presents to the emergency room for evaluation of right knee pain and swelling. Patient denies any injury or trauma. States a couple of days ago she was very active and gardening. States that she was kneeling down for several hours. Woke up following day noticed swelling and pain to her right knee. States pain is better with Aleve and hydrocodone. Related Data Home Medications Medication Instructions Recorded Confirmed aspirin 81 mg tablet 81 mg PO DAILY 08/25/22 09/11/22 calcium 600 mg (1,500 mg)-vit 600 tablet PO DAILY 08/25/22 09/11/22 C-vit D2 200 unit-vit E-minerals tablet citalopram 20 mg tablet 10 mg PO DAILY 08/25/22 09/11/22 fluticasone furoate 200 200 inh inhalation DAILY 08/25/22 09/11/22 mcg-vilanterol 25 mcg/dose inhalation powder (Breo Ellipta) hydrochlorothiazide 12.5 mg tablet 12.5 mg PO DAILY 08/25/22 09/11/22 montelukast 10 mg tablet 10 mg PO DAILY 08/25/22 09/11/22 omeprazole 20 mg capsule,delayed 20 mg PO DAILY 08/25/22 09/11/22 release Allergies Allergy/AdvReac Type Severity Reaction Status Date / Time amoxicillin [From Augmentin] Allergy Rash Verified 03/03/23 09:36 azithromycin [From Zithromax] Allergy Rash Verified 03/03/23 09:36 clavulanic acid Allergy Rash Verified 03/03/23 09:36 [From Augmentin] doxycycline Allergy Rash Verified 03/03/23 09:36 iodine Allergy Anaphylaxis Verified 03/03/23 09:36 norepinephrine Allergy Unknown Verified 03/03/23 09:36 [From Levophed (bitartrate)] Sulfa (Sulfonamide Allergy Rash Verified 03/03/23 09:36 Antibiotics) Review of Systems Review of Systems: CONSTITUTIONAL: Denies fever, chills, or sweats. EYES: Denies visual changes, redness, or discharge. ENT: Denies rhinorrhea, congestion, sore throat, or otalgia. CARDIOVASCULAR: Denies chest pain, palpitations, or edema. RESPIRATORY: Denies cough or dyspnea. GASTROINTESTINAL: Denies abdominal pain, nausea, vomiting, or diarrhea. GENITOURINARY: Denies dysuria or hematuria. SKIN: Denies rash or itching. MUSCULOSKELETAL: Reports left knee NEUROLOGIC: Denies headache, numbness, dizziness, or weakness. PSYCHIATRIC: Denies anxiety or depression. COUNTS INCLUDE 234 BEDS AT THE [facility] Past Medical History Medical History Asthma Depression GERD (gastroesophageal reflux disease) HTN (hypertension) Surgical History Surgical History H/O cataract extraction History of hysterectomy History of tonsillectomy S/P laparoscopic cholecystectomy 08/26/22 Family History Family History Mother Lung disease Son Acute myocardial infarction Son Involved in airplane accident Social History Social History Social History: She is and lives alone. She has 3 children and her daughter christopher is the poa . 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 She is a lifelong nonsmoker. Code status full code Smoking status: Never smoker Alcohol intake: never Substance use: never Lack of Transportation: No Lack of Food: Never True Current Housing: I Have Housing Concerned About Future Housing: No Difficulty Paying Gas/Electric Bills: No Difficulty Paying for Meds: No Currently Unemployed: No Education: Don't Know Difficulty w/ Childcare or Family Care: No Spiritual care concerns: No Exam Narrative: GENERAL: Well-appearing, well-nourished, no physical limitations, and in no acute distress. HEAD: Normocephalic, atraumatic. EYES: Conjunctivae normal, PERRLA and EOMI. CHEST: Clear to auscultation. No respiratory distress. No wheezes
[2023-03-03] MEDS: HYDROcodone/acetaminophen (*CRX) 5-325 MG TABLET 1 TAB PO (10:04)
[2023-03-03 10:17] VITALS: BP 134/87; PULSE 81; RESP 17; O2SAT 97
== END 2023-03-03 10:18 | disposition home or self-care (01) ==
PROVIDERS: Emergency Provider Nurse Practitioner Family
DX: M17.11 Unilateral primary osteoarthritis, right knee (principal); J45.909 Unspecified asthma, uncomplicated; I10 Essential (primary) hypertension; K21.9 Gastro-esophageal reflux disease without esophagitis; Z79.82 Long term (current) use of aspirin; Z98.49 Cataract extraction status, unspecified eye; Z90.49 Acquired absence of other specified parts of digestive tract; M11.261 Other chondrocalcinosis, right knee
CPT/HCPCS: 73564; 99283; A9270

== ENCOUNTER 2023-03-09 11:27 | Inpatient (IN) | payer OTHER, SELFPAY ==
--- NOTE | ~2023-03-09 | MR_ITS ---
EXAMINATION: MR knee RT wo/w con DATE: 03/16/2023 12:51 INDICATION: Osteomyelitis TECHNIQUE: Magnetic resonance imaging (MRI) of the right knee was performed without and with 16 mL Mu ltihance intravenous contrast. Sequences included axial, sagittal and coronal T1-weighted FSE, axial and coronal T2-weighted FS FSE, sagittal fluid sensitive FSE STIR, axial T1-weighted FS FSE and post contrast axial, sagittal and coronal T1-weighted FS FSE. COMPARISON: None. FINDINGS: There is synovial enhancement along the margins of a complex knee joint effusion which demonstrates h eterogeneous T1 and T2 signal which is suspicious for either septic arthritis and/or hemarthrosis. At the cephalad medial side of the suprapatellar pouch there appears to be lobular intramuscular extens ion into the distal vastus medialis muscle which would favor infection. Similar peripheral enhancemen t and internal complex signal at a small Cerna's cyst. There is prominent subcutaneous edema surround ing the knee. There is severe osteoarthritis in the medial compartment with early remodeling of the medial tibial p lateau and anterior weightbearing medial femoral condyle. There is some underlying mild marrow edema and enhancement which is also seen underlying the medial and lateral articular surfaces of the interc ondylar eminence where there also appears to be some cartilage loss. There is however no geographic r egions of loss of the T1 hyperintense marrow signal to more specifically suggest osteomyelitis. Corre lation with the prior radiographs suggests that the appearance of cortical erosion the radiographs li selena results from a combination of osteopenia, a prominent marginal osteophyte with irregular margins located along the medial rim of the medial femoral condyle as well as chondrocalcinosis of the of th e medial meniscus which appears torn on MRI with macerated appearance anteriorly. Assessment of the m enisci and cartilage is however markedly limited in the current study due to significant motion artif act. There appears be region of deep chondral ulceration at the central aspect of the medial femoral condyle. Partial-thickness cartilage loss with chondral surface regularity along the patella and late ral trochlea. Anterior and posterior cruciate ligaments, the medial collateral ligament and fibular collateral liga ment complex all appear grossly intact. Extensor mechanism appears intact with bands of magic angle a rtifact most prominent along the patellar tendon. The visualized medial and lateral hamstring tendons as well as the iliotibial band are normal. There is feathery muscular edema and non masslike enhance ment in the distal quadriceps musculature most likely related to myositis which could be either septi c or aseptic/reactive. IMPRESSION: 1. Large complex joint effusion with suggestion of intramuscular extension within the vastus medialis which concerning for septic arthritis. The plan is for ultrasound guidance drainage catheter placeme nt at the suprapatellar pouch and potentially also into a small Cerna's cyst. 2. Small regions of relatively localized subarticular enhancement in edema-like signal change but wit hout geographic regions of T1 marrow signal loss to more specifically suggest osteomyelitis in this m ore likely related to overlying high-grade chondromalacia. The appearance on prior radiographs suspic ious for cortical erosion is likely artifact of a combination of osteopenia, marginal osteophytes and chondrocalcinosis of the meniscus. 3. Advanced osteoarthritis in medial compartment with complex medial meniscal tear. 4. Less severe osteoarthritis with regions of at least moderate grade chondromalacia in the lateral a nd patellofemoral compartments. More detailed evaluation of the cartilage as well as of the lateral m eniscus is however considered nondiagnostic due to significant motion artifact.
--- NOTE | ~2023-03-09 | CT_ITS ---
EXAMINATION: CT brain wo con DATE: 03/15/2023 12:45 INDICATION: Confusion. TECHNIQUE: Computed tomography (CT) of the head was performed without intravenous contrast. The mA wa s adjusted according to patient size. Iterative reconstruction technique was employed. The dose-lengt h product was 908.00 mGy-cm. COMPARISON: None FINDINGS: There are scattered areas of low attenuation in the cerebral white matter. There is no intr acranial hemorrhage, acute infarction, or abnormal intracranial mass lesion. The ventricles are galo l in size. There are likely changes of ocular lens replacement surgeries. There is a 1.3 x 0.9 cm mas s in right orbit. There is mild mucosal thickening in the paranasal sinuses. The mastoid air cells ar e normal. Partially visualized is a 1.4 x 1.3 cm mass in superficial right parotid gland. IMPRESSION: 1. Moderate nonspecific cerebral white matter disease, which likely represents chronic small vessel i schemic disease. 2. 1.3 cm right orbital mass. The differential diagnosis includes hemangioma, idiopathic orbital infl ammatory disease, and lymphoma. 3. 1.4 cm right parotid mass. The differential diagnosis includes benign mixed tumor, Warthin tumor, and less likely primary malignancy or talia metastatic disease. Reviewed, dictated and finalized at location A. IMPRESSION: 1. Moderate nonspecific cerebral white matter disease, which likely represents chronic small vessel ischemic disease. 2. 1.3 cm right orbital mass. The differential diagnosis includes hemangioma, i diopathic orbital inflammatory disease, and lymphoma. 3. 1.4 cm right parotid mass. The differential diagnosis includes benign mixed tumor, Warthin tumor, and less likely primary malignancy or talia metastatic di sease.
--- NOTE | ~2023-03-09 | US_ITS ---
EXAMINATION: US soft tissue LE RT DATE: 03/15/2023 17:55 INDICATION: knee looking for a cyst or abscess . TECHNIQUE: Grayscale and Doppler ultrasound images of the right knee were obtained. COMPARISON: X-ray right knee 03/03/2023. FINDINGS: Heterogeneous fluid collection in the anterior knee, immediately superior to the patella, m easuring approximately 6 x 6 x 2 cm, although precise measurement was reported by the technologist to be difficult to obtain. No significant surrounding color Doppler flow. 5.8 x 1.9 x 1.5 cm posterior fluid collection in the popliteal fossa, also with heterogeneous internal echogenicity but without si gnificant surrounding color Doppler flow. IMPRESSION: Large heterogeneous suprapatellar fossa collection, likely representing joint effusion. 5.8 cm Cerna' s cyst. Significant hyperemia not demonstrated surrounding either collection, noting that sterility c annot be accurately assessed with ultrasound. Reviewed, dictated and finalized at location K. IMPRESSION: Large heterogeneous suprapatellar fossa collection, likely representing joint e ffusion. 5.8 cm Cerna's cyst. Significant hyperemia not demonstrated surroundin g either collection, noting that sterility cannot be accurately assessed with u ltrasound.
--- NOTE | ~2023-03-09 | XR_ITS ---
[id number] 03/09/2023 13:58 Indication: Status post fall. Right knee pain. Effusion. Procedure: 2 views right knee Comparison: No prior studies for comparison. Findings: There is a possible avulsion fracture anterior aspect of the distal femur seen on the later al view. There is a moderate joint effusion. There is tricompartment osteoarthritis. No foreign victor hugo s. Impression: 1: Possible avulsion fracture anterior inferior margin of the distal femur seen on lateral view only. 2: Moderate joint effusion. Reviewed, dictated and finalized at location L. Impression: 1: Possible avulsion fracture anterior inferior margin of the distal femur seen on lateral view only. 2: Moderate joint effusion.
--- NOTE | ~2023-03-09 | US_ITS ---
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 Risks discu ssed included bleeding including hemorrhage, infection and allergic reaction. Oral and written consen t were obtained. The patient was confirmed to be receiving appropriate antibiotic coverage. Attention was first turned to the larger fluid collection at the suprapatellar pouch. The patient was placed s upine. The skin at the anteromedial aspect of the knee was prepped and draped in usual sterile fashio n. Anesthetic was administered with 1% lidocaine subcutaneously. Utilizing trocar technique 12 Fr ca theter was inserted into the suprapatellar pouch and advanced at the superolateral aspect of the pouc h under continuous sonographic observation. The metal stiffener and trocar needle were removed, and t he pigtail tip was formed and locked. A small amount of maroon-colored fluid was aspirated and sent f or Gram stain and cultures. The catheter was stitched to the skin with suture. Antibiotic ointment an d a sterile dressing were applied. The catheter was attached to suction drainage and was draining add itional small amount of fluid at the conclusion of the procedure. There were no immediate complicatio ns. Patient was rolled to the right lateral decubitus position and the skin overlying the popliteal reces s was prepped and draped in usual sterile fashion. Anesthetic was administered with 1% lidocaine subc utaneously. An 18-gauge needle was advanced into the central aspect of the small Cerna's cyst. Trace amount of additional maroon-colored fluid was aspirated and sent for Gram stain and cultures. The nee dle was removed and a sterile dressing was applied. There were no immediate complications. FINDINGS: Large complex fluid collection at the suprapatellar pouch. Subsequent images demonstrate th e catheter within the suprapatellar pouch. 1 mL of maroon-colored fluid was aspirated. Subsequent john ges demonstrate a small Cerna's cyst with trace amount of anechoic fluid centrally with markedly thic kened hypoechoic likely peripheral wall. Trace amount of maroon-colored fluid was aspirated. IMPRESSION: 1. Successful ultrasound-guided drainage catheter placement into the suprapatellar pouch of the right knee with drainage of room-colored fluid, 1 mL maroon-colored fluid was sent for aerobic, anaerobic, and fungal cultures. 2. Successful ultrasound-guided aspiration of a trace amount of additional maroon-colored fluid from a small Cerna's cyst at the right popliteal recess which also was sent for aerobic, anaerobic, and fu ngal cultures. 3. The catheter will be managed by Dr. Sultana. Reviewed, dictated and finalized at location A. IMPRESSION: 1. Successful ultrasound-guided drainage catheter placement into the suprapatel lar pouch of the right knee with drainage of room-colored fluid, 1 mL maroon-co lored fluid was sent for aerobic, anaerobic, and fungal cultures. 2. Successful ultrasound-guided aspiration of a trace amount of additional william on-colored fluid from a small Cerna's cyst at the right popliteal recess which also was sent for aerobic, anaerobic, and fungal cultures. 3. The catheter will be managed by Dr. Sultana.
--- NOTE | ~2023-03-09 | US_ITS ---
EXAMINATION:US venous doppler LE RT INDICATION:Right lower extremity pain and redness. TECHNIQUE: Multiple grayscale, color flow and Doppler images of the right lower extremity deep venous systems were obtained and reviewed. COMPARISON:No prior studies for comparison. FINDINGS: The common femoral, superficial femoral and popliteal veins demonstrate normal respiratory variation, augmentation and compressibility. Color flow is also seen within the posterior tibial, pe roneal, greater saphenous and profunda veins. There is fluid in the soft tissues around the knee and medial thigh. IMPRESSION: 1: No lower extremity deep venous thrombosis. 2: Nonspecific fluid surrounding the right knee and medial thigh which could represent serous fluid from underlying cellulitis, posttraumatic change (i.e. hematoma). Correlate clinically. Reviewed, dictated and finalized at location L. IMPRESSION: 1: No lower extremity deep venous thrombosis. 2: Nonspecific fluid surrounding the right knee and medial thigh which could r epresent serous fluid from underlying cellulitis, posttraumatic change (i.e. he matoma). Correlate clinically.
[2023-03-09 11:28] VITALS: BP 140/63; PULSE 87; RESP 16; TEMP 35.7; O2SAT 93
--- NOTE | 2023-03-09 12:55 | ED.EXTPRO ---
HPI - Extremity Problem General Chief complaint: Extremity Problem,Nontraumatic Stated complaint: right knee pain Time Seen by Provider: 03/09/23 12:15 Source: patient Mode of arrival: wheelchair Limitations: no limitations History of Present Illness HPI Narrative: This is an 83-year-old female with PMH of HTN, GERD, cholecystitis who presents to the ED with chief complaint of right knee pain x1 week. Patient states she was seen here in the ED last week and was discharged home with likely arthritis. Patient states that she has had some worsening pain since then. She also reports a fall when trying to transition from seated position. She is normally able to walk with a cane or a walker at home. Reports unable to bear any weight on the right leg today which is certainly abnormal for her. Also reports some redness to the knee and the swelling is worse than last week. Denies fevers or chills. Denies numbness or weakness. Denies any further site of pain or injury. She follows with Dr. Cooper (orthopedics) who is not able to see her until . Related Data Home Medications Medication Instructions Recorded Confirmed aspirin 81 mg tablet 81 mg PO HS 08/25/22 03/09/23 calcium 600 mg (1,500 mg)-vit 600 tablet PO DAILY 08/25/22 03/09/23 C-vit D2 200 unit-vit E-minerals tablet citalopram 20 mg tablet 20 mg PO DAILY 08/25/22 03/09/23 fluticasone furoate 200 200 inh inhalation DAILY 08/25/22 03/09/23 mcg-vilanterol 25 mcg/dose inhalation powder (Breo Ellipta) hydrochlorothiazide 12.5 mg tablet 12.5 mg PO DAILY 08/25/22 03/09/23 montelukast 10 mg tablet 10 mg PO HS 08/25/22 03/09/23 omeprazole 20 mg capsule,delayed 20 mg PO DAILY 08/25/22 03/09/23 release Allergies Allergy/AdvReac Type Severity Reaction Status Date / Time amoxicillin [From Augmentin] Allergy Rash Verified 03/09/23 12:36 azithromycin [From Zithromax] Allergy Rash Verified 03/09/23 12:36 clavulanic acid Allergy Rash Verified 03/09/23 12:36 [From Augmentin] doxycycline Allergy Rash Verified 03/09/23 12:36 iodine Allergy Anaphylaxis Verified 03/09/23 12:36 norepinephrine Allergy Unknown Verified 03/09/23 12:36 [From Levophed (bitartrate)] Sulfa (Sulfonamide Allergy Rash Verified 03/09/23 12:36 Antibiotics) Review of Systems Review of Systems: CONSTITUTIONAL: Denies fever, chills, or sweats. EYES: Denies visual changes, redness, or discharge. ENT: Denies rhinorrhea, congestion, sore throat, or otalgia. CARDIOVASCULAR: Denies chest pain, palpitations, or edema. RESPIRATORY: Denies cough or dyspnea. GASTROINTESTINAL: Denies abdominal pain, nausea, vomiting, or diarrhea. GENITOURINARY: Denies dysuria or hematuria. SKIN: Denies rash or itching. MUSCULOSKELETAL: See HPI NEUROLOGIC: Denies headache, numbness, dizziness, or weakness. PSYCHIATRIC: Denies anxiety or depression. [facility] Past Medical History Medical History Asthma Depression GERD (gastroesophageal reflux disease) HTN (hypertension) Surgical History Surgical History H/O cataract extraction History of hysterectomy History of tonsillectomy S/P laparoscopic cholecystectomy 08/26/22 Family History Family History Mother Lung disease Son Acute myocardial infarction Son Involved in airplane accident Social History Social History Social History: She is and lives alone. She has 3 children and her daughter christopher is the poa . She retired from [employer] as a [employer]. She is a lifelong nonsmoker. Code status full code Smoking status: Never smoker Alcohol intake: never Substance use: never Substance use type: does not use Lack of Transportation: No Lack of Food: Never True Current Housing: I Have Housing Co
[2023-03-09 13:41] LABS: Basophils Absolute Auto 0.2 K/mm3 (0.0-0.1); Basophils Percent Auto 0.9 % (0.2-1.2); Eosinophils Absolute Auto 0.1 K/mm3 (0-0.3); Eosinophils Percent Auto 0.6 % (0-4.4); Hematocrit 37.1 % (37.0-47.0); Hemoglobin 12.1 g/dL (12.0-15.0); Immature Granulocyte Absolute 1.17 K/mm3 (0.00-0.031); Immature Granulocyte Percent A 5.5 % (0-0.5); Lymphocytes Percent Auto 7.6 % (18.3-44.2); Mean Corpuscular HGB Conc 32.6 g/dl (32-36); Mean Corpuscular Hemoglobin 28.2 pg (26-34); Mean Corpuscular Volume 86.5 fl (80-100); Mean Platelet Volume 10.4 fl (7.4-10.4); Monocytes Absolute Auto 2.1 K/mm3 (0.1-0.6); Monocytes Percent Auto 10.1 % (2.6-8.5); Neutrophils Absolute Auto 15.9 K/mm3 (1.3-6.7); Neutrophils Percent Auto 75.3 % (45.5-73.1); Platelet Count Result 497 k/mm3 (150-375); Red Blood Count 4.29 M/mm3 (4.2-5.4); Red Cell Distribution Width 15.5 % (11.5-14.5); White Blood Count 21.1 K/mm3 (4.5-10.0)
[2023-03-09] MEDS: ONDANSETRON INJ 4 MG/2 ML VIAL IV PUSH (13:59)
[2023-03-09] MEDS: MORPHINE SULFATE (*CRX) 4 MG/ML INJ IV PUSH (13:59)
[2023-03-09 14:08] LABS: Alanine Aminotransferase 23 U/L (6-35); Albumin Level 3.7 g/dL (3.5-5.1); Alkaline Phosphatase 205 U/L (38-126); Anion Gap 9 mmol/L (8-16); Aspartate Amino Transferase 27 U/L (14-36); Bilirubin,Total 1.9 mg/dL (0.2-1.3); Blood Urea Nitrogen 43 mg/dL (7-17); Calcium 8.9 mg/dL (8.4-10.2); Carbon Dioxide 29 mmol/L (22-30); Chloride 102 mmol/L (98-107); Estimated CRCL calculation 34 ml/min; Estimated Glomerular Filt Rate 47; Glucose 94 mg/dL (65-110); Potassium 3.9 mmol/L (3.4-5.0); Sodium 140 mmol/L (137-145)
[2023-03-09 14:15] LABS: Platelet Estimate Increased (Adequate)
[2023-03-09 14:16] LABS: Burr Cells 2+ (NORMAL); Schistocytes None Seen (NORMAL)
[2023-03-09 14:22] LABS: CRP 37.4 mg/dL (<1.0)
[2023-03-09 14:28] LABS: Erythrocyte Sedimentation Rate 82 mm/hr (0-20)
[2023-03-09 14:37] LABS: Uric Acid 6.8 mg/dL (2.5-7.5)
[2023-03-09] MEDS: SODIUM CHLORIDE 0.9% IV 1,000 ML 999 ML IV CONT (15:03)
[2023-03-09] MEDS: fentaNYL CITRATE INJ (*CRX) 100 MCG/2 ML VIAL 50 MCG IV PUSH (15:15)
[2023-03-09 16:40] VITALS: BP 137/70; PULSE 74; RESP 18; O2SAT 97
[2023-03-09] MEDS: ceFAZolin 1 GM/NS 50 ML 1 GM/50 ML BAG IVPB (16:51)
[2023-03-09 17:05] VITALS: BP 142/89; PULSE 79; RESP 16; O2SAT 99
[2023-03-09 17:20] VITALS: BP 136/48; PULSE 81; RESP 16; TEMP 36.6; O2SAT 92
--- NOTE | 2023-03-09 17:30 | ADMGEN ---
This patient, Jamia Palacios, was admitted to Medical Room 248-. Patient/family oriented to hospital policies and general routines including ID bracelet, bed and alarms, visiting hours, pain management, procedures, bathroom and other care routines, personal items, smoking policy, room service/diet, and visiting hours. Information on how to activate the Rapid Response Team has been discussed. Patient/Family are encouraged to report perceived risks to care and to ask questions if they do not understand what they are told or what they should do.
[2023-03-09 17:35] LABS: Crystals Synovial Fluid None Seen (None Seen); Source Synovial Fluid Synovial fluid
[2023-03-09 17:36] LABS: Appearance Synovial Fluid Bloody (Clear); Color Synovial Fluid Red (Colorless)
[2023-03-09 17:37] LABS: Lymphocytes Synovial Fluid 3 %; Monocytes Synovial Fluid 1 %; Neutrophils Synovial Fluid 96 % (0-25)
[2023-03-09] MEDS: SODIUM CHLORIDE 0.9% IV 1,000 ML 125 ML IV CONT (17:55)
[2023-03-09] MEDS: HYDROmorphone HCL INJ (*CRX) 1 MG/ML SYR 0.5 MG IV PUSH (17:56)
[2023-03-09] MEDS: diphenhydrAMINE HCl CAP 25 MG CAPSULE PO (18:48)
[2023-03-09 19:19] VITALS: BP 121/52; PULSE 75; RESP 20; TEMP 36.6; O2SAT 96
[2023-03-09] MEDS: HYDROcodone/acetaminophen (*CRX) 5-325 MG TABLET 1 TAB PO (21:33)
[2023-03-09] MEDS: ASPIRIN 81 MG ENTERIC TABLET PO (22:52)
[2023-03-09] MEDS: MONTELUKAST SODIUM 10 MG TABLET PO (22:55)
--- NOTE | 2023-03-09 23:20 | PM.IMHP ---
H&P: HPI History of Present Illness Date/Time: 03/09/23 23:20 Chief Complaint: Right knee pain Narrative: 83-year-old female with a past medical history of essential hypertension, GERD, asthma, osteoarthritis and chronic gait instability who presented to the ER with right knee pain. The patient reports that she came to the ER on the 10th due to knee pain and was discharged home with naproxen and [place]. Or red despite these medications as her knee pain has become worse. She has went from being able to garden. As the week has progressed her pain is become worse. The knee has become warm and markedly swollen. She has pain with both passive and active ranges of motion. She has had so much difficulty with the knee that she now has had a fall when she tried to transition to a seated position. She is usually able to walk with a cane or a worse case scenario a walker but has been unable to bear any weight on the leg for the last 24 hours. She reports that she just does not feel good and does not feel like eating. She denies any chest pain or shortness of breath. She denies any scratches or abrasions to the extremity. She is not on blood thinners. She denies ever having had any thing like this before she has never had a history of joint infections. She has not had any history of joint replacements. She reports the pain is a 10/10 in intensity and was crying when I entered the room. Review of Systems Review of Systems: 12 systems were reviewed with pertinent positives and negatives per HPI. Except as documented in the HPI, all other systems were reviewed and are negative. [facility] Past Medical History Medical History (Updated 03/10/23 @ 08:56 by Keshia Hernandez DO) Asthma Depression GERD (gastroesophageal reflux disease) HTN (hypertension) Surgical History Surgical History H/O cataract extraction History of hysterectomy History of tonsillectomy S/P laparoscopic cholecystectomy 08/26/22 Family History Family History Mother Lung disease Son Acute myocardial infarction Son Involved in airplane accident Social History Social History (Updated 03/10/23 @ 08:57 by Keshia Hernandez DO) Social History: She is and lives alone. She ambulates with a cane or walker. She has 3 children. 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 She is a lifelong nonsmoker. Code status: Full code Healthcare power of city attorney: Avis (daughter) Smoking status: Never smoker Alcohol intake: never Substance use: never Substance use type: does not use Lack of Transportation: No Lack of Food: Never True Current Housing: I Have Housing Concerned About Future Housing: No Difficulty Paying Gas/Electric Bills: No Difficulty Paying for Meds: No Currently Unemployed: No Education: Don't Know Difficulty w/ Childcare or Family Care: No Spiritual care concerns: No Meds Home Medications and Allergies Home Medications Medication Instructions Recorded Confirmed Type aspirin 81 mg tablet 81 mg PO HS 08/25/22 03/09/23 History calcium 600 mg (1,500 mg)-vit 600 tablet PO DAILY 08/25/22 03/09/23 History C-vit D2 200 unit-vit E-minerals tablet citalopram 20 mg tablet 20 mg PO DAILY 08/25/22 03/09/23 History fluticasone furoate 200 200 inh inhalation DAILY 08/25/22 03/09/23 History mcg-vilanterol 25 mcg/dose inhalation powder (Breo Ellipta) hydrochlorothiazide 12.5 mg tablet 12.5 mg PO DAILY 08/25/22 03/09/23 History montelukast 10 mg tablet 10 mg PO HS 08/25/22 03/09/23 History omeprazole 20 mg capsule,delayed 20 mg PO DAILY 08/25/22 03/09/23 History release hydrocodone 5 mg-acetaminophen 325 1 tablet PO Q6H PRN pain #12 tabs 03/03/23 03/09/23 Rx mg tablet naproxen 500 mg tablet 500 mg PO BID #30 tabs 03/03/23 03/09/23 Rx Allergies Allergy/AdvReac Type Se
[2023-03-10] MEDS: HYDROmorphone HCL INJ (*CRX) 1 MG/ML SYR 0.5 MG IV PUSH (00:39)
[2023-03-10] MEDS: HYDROcodone/acetaminophen (*CRX) 5-325 MG TABLET 1 TAB PO ×2 (01:27→08:40)
--- NOTE | 2023-03-10 01:34 | PC.NURSE ---
Addendum entered by Zain Doll RN 03/10/23 03:03: Patient states pain improved some and wants to wait to see if pain becomes worse, patient will call if she feels she needs additional medication. Original Note: Dr Hernandez notified patient still having severe pain 30 min after 0.5mg dilaudid admin. Patient received 5-325 hydrocodone at 0127, OK to give 1mg dilauded now and increase PRN dose to 1mg q4hr.
[2023-03-10] MEDS: HYDROmorphone HCL INJ (*CRX) 1 MG/ML SYR IV PUSH ×3 (05:03→22:33)
[2023-03-10 05:06] VITALS: BP 129/48; PULSE 78; RESP 18; TEMP 36.2; O2SAT 93
[2023-03-10 05:57] LABS: Hematocrit 32.6 % (37.0-47.0); Hemoglobin 10.3 g/dL (12.0-15.0); Mean Corpuscular HGB Conc 31.6 g/dl (32-36); Mean Corpuscular Hemoglobin 27.6 pg (26-34); Mean Corpuscular Volume 87.4 fl (80-100); Mean Platelet Volume 9.6 fl (7.4-10.4); Platelet Count Result 420 k/mm3 (150-375); Red Blood Count 3.73 M/mm3 (4.2-5.4); Red Cell Distribution Width 15.3 % (11.5-14.5); White Blood Count 17.2 K/mm3 (4.5-10.0)
[2023-03-10 06:03] LABS: Anion Gap 6 mmol/L (8-16); Blood Urea Nitrogen 31 mg/dL (7-17); Calcium 8.2 mg/dL (8.4-10.2); Carbon Dioxide 28 mmol/L (22-30); Chloride 104 mmol/L (98-107); Estimated CRCL calculation 34 ml/min; Estimated Glomerular Filt Rate 47; Glucose 88 mg/dL (65-110); Potassium 3.7 mmol/L (3.4-5.0); Sodium 138 mmol/L (137-145)
[2023-03-10] MEDS: SODIUM CHLORIDE 0.9% IV 1,000 ML 125 ML IV CONT ×3 (06:29→22:34)
[2023-03-10 06:40] LABS: Band Neutrophils Percent 6 % (0-6); Eosinophils Absolute Manual 0.51 K/mm3 (0.02-0.5); Eosinophils Percent Manual 3 % (0-4); Lymphocytes Absolute Manual 1.37 K/mm3 (1.1-4.5); Monocytes Absolute Manual 2.06 K/mm3 (0.1-0.90); Monocytes Percent Manual 12 % (3-9); Neutrophils Absolute Manual 13.24 K/mm3 (1.7-7.2); Neutrophils Percent Manual 71 % (46-73); Platelet Clumps Present; Platelet Estimate Increased (Adequate); Schistocytes None Seen (NORMAL); Total Cells Counted 100
[2023-03-10 06:41] LABS: Burr Cells 1+ (NORMAL)
[2023-03-10] MEDS: FLUTICASONE/SALMETEROL 230-21 MCG INHALER 1 PUFF 2 PUFF INHALATION ×2 (08:29→22:03)
[2023-03-10 09:53] VITALS: BP 139/56
[2023-03-10] MEDS: hydroCHLOROthiazide 12.5 MG CAPSULE PO (10:25)
[2023-03-10] MEDS: PANTOPRAZOLE 40 MG TABLET PO (10:25)
[2023-03-10] MEDS: CITALOPRAM HYDROBROMIDE 20 MG TABLET PO (10:25)
[2023-03-10] MEDS: HEPARIN SODIUM 5,000 UNITS/ML VIAL 5000 UNITS SUB-Q ×2 (10:25→22:35)
--- NOTE | 2023-03-10 11:07 | IDPHARM ---
Addendum entered by Frederick Sifuentes PharmD 03/18/23 08:28: DUE TO PROCESS CHANGES I HAVE MOVED THIS PREVIOUS NOTE (BELOW) TO THIS NOTE FORMAT SO TO CONSOLIDATE INFORMATION LOCATION. Have been asked by Jc Doherty to provide recommendations regarding blood monitoring for Ancef IV over the next 4 weeks and the appropriateness of Ancef 2g IV q8h as a dosing schedule for these prolonged 4 weeks. Have previously discussed with hospitalist provider that perhaps the patient may not be able to discharge with q8h parenteral antibiotics given restrictions of the facility in which the patient will be placed. Noted that with this patient's current eCrCl (~46 mL/min) that, per Lexicomp Dosing Guidance, this patient would qualify for either Cefazolin IV 2g q8h or Cefazolin IV 2g q12h and while the patient may benefit from more aggressive therapy whilst inpatient, dosing guidance does seem to allow the usage of the q12h dosing regimen as was requested to be looked into by Case Management and Hospitalist provider to optimize placement concerns regarding these parenteral antibiotics. Please note below for lab monitoring recommendations for the 3 discussed discharge antibiotics with the hospitalist, and leave final decision up to provider teams. Ancef IV 2g q8h or Ancef IV 2g q12h: Lab monitoring of CBC and BMP once weekly Vancomycin IV 1.5 g q12h: Lab monitoring of Vancomycin Trough prior to 4th or 5th dose, Vancomycin Trough at least weekly or as needed, CBC and BMP once weekly at least, or as needed for monitoring potential toxicity. Daptomycin IV 500 mg q24h (Dose calculated using adjusted body weight of 64 kg and 8 mg/kg dosing schema): Lab monitoring of CK at baseline and CK, CBC, and BMP weekly. Previous Notes Below and also remain in the Allied Providers Section too Addendum entered by Frederick Sifuentes PharmD 03/12/23 11:27: Cultures reveal likely MSSA BSI 2/2 Staphylococcus Aureus Septic Arthritis (sensitivities of 03/09 aspiration pending) of the [place] knee s/p washout and aspiration. Should source control be sufficient and repeat blood culture (/18 sets) be negative, patient will likely need 4 weeks of antibiotics from negative cultures. Assuming target organism doesn't change most common therapies include cefazolin 2g q8h (renally adjusted as appropriate), or vancomycin IV given patient's allergy to beta-lactams. Given likely easier to be administered outpatient, continue vancomycin (Total therapy D4). Follow culture results from 03/09 aspiration and 03/11 blood cultures. This information discussed with the hospitalist provider per the request of consulting provider on 03/10. Likely will sign off soon. Original Note: Subjective Pharmacy was consulted by Jason Padron regarding infectious diseases for Jamia Palacios. Jamia Palacios is a 83 year old F with concerns regarding septic arthritis of [place] knee. Background The patient is currently receiving IV Vancomycin (~ Day 2). The patient's PMH includes CKD among what is listed in providers' notes. Per consulting provider patient has had symptoms for a few days and presents with a swollen and hot knee. Patient underwent aspiration of the knee on 03/09 (GPC and WBC seen on stain - culture pending). Additionally, 03/09 BCX are still pending. Patient has a resolving leukocytosis 21.1--> 17.2 and stable SCr at 1.1 mg/dL. Patient has been afebrile since admission. 03/09 Synovial GPC/WBC on stain - CX pending 03/09 BCX Pending Assessment/Recommendation/Discussion Spoke with consulting provider regarding this patient with [place] knee septic arthritis. Vancomycin on board will likely cover likely GPC pathogens (s. aureus/GAS) empirically, but will follow for targeted therapy. Provider stated going for washout of knee for patient tomorrow (03/11). Will follow 03/09 cultures and any from washout tomorrow. Provider stated may need to interface with hospitalist service regarding targeted therapy and discharge recommendations. Septic arthrit
--- NOTE | 2023-03-10 11:45 | PM.IMPN ---
Progress Note: A&P Assessment and Plan (1) Septic arthritis of knee, right: Qualifiers: Septic arthritis organism: due to unspecified organism Qualified Code(s): M00.9 - Pyogenic arthritis, unspecified Code(s): M00.9 - Pyogenic arthritis, unspecified Status: Acute Assessment and Plan: Presented with worsening pain, swelling and immobility Xray indicates worsening effusion with possible cellulitis Joint aspiration in the ED Gram stain indicates gram positive cocci Await culture results Continue vanco and ancef pain medications on board Ortho consulted Trend pain Trend symptoms Joint washout scheduled for tomorrow (2) Chronic kidney disease: Qualifiers: Chronic kidney disease stage: stage 3 (moderate) Chronic kidney disease stage 3 subtype: stage 3b (GFR 30-44) Qualified Code(s): N18.32 - Chronic kidney disease, stage 3b Code(s): N18.9 - Chronic kidney disease, unspecified Status: Acute Assessment and Plan: Current BUN/Cr 31/1.10 Stage 3 Baseline creatinine appears to be 0.8-1.10 Stable at this time Avoid nephrotoxic medications trend labs Adjust therapy as indicated (3) HTN (hypertension): Qualifiers: Hypertension type: primary hypertension Qualified Code(s): I10 - Essential (primary) hypertension Code(s): I10 - Essential (primary) hypertension Status: Chronic Assessment and Plan: BP is stable at 129/48 Continue home medications Trend BP adjust therapy as indicated Time Spent With Patient Time: 48 minutes Time with patient: Greater than 35 minutes Subjective Date/time seen: 03/10/23 1145 Interval history: 03/10/23 114 She is in a lot of pain. She is not really trying to talk to me at this time. Her daughter was present and she was stating that she was not getting any relief with the Dilaudid and the oral medications. She is also requesting a urinary catheter for further comfort. She denies any further chest pain, shortness of breath, nausea, vomiting, diarrhea or constipation. 03/09/23? 23:20 83-year-old female with a past medical history of essential hypertension, GERD, asthma, osteoarthritis and chronic gait instability who presented to the ER with right knee pain.? The patient reports that she came to the ER on the due to knee pain and was discharged home with naproxen and [place].? Or red despite these medications as her knee pain has become worse.? She has went from being able to garden.? As the week has progressed her pain is become worse.? The knee has become warm and markedly swollen.? She has pain with both passive and active ranges of motion.? She has had so much difficulty with the knee that she now has had a fall when she tried to transition to a seated position.? She is usually able to walk with a cane or a worse case scenario a walker but has been unable to bear any weight on the leg for the last 24 hours.? She reports that she just does not feel good and does not feel like eating.? She denies any chest pain or shortness of breath.? She denies any scratches or abrasions to the extremity.? She is not on blood thinners.? She denies ever having had any thing like this before she has never had a history of joint infections.? She has not had any history of joint replacements.? She reports the pain is a 10/10 in intensity and was crying when I entered the room. Review of Systems Review of Systems: All systems reviewed & are unremarkable except as noted in HPI and below Exam Narrative: General: well-nourished, well-appearing 83-year-old female, sitting up in bed, comfortable, NARD Neuro: awake, alert and oriented x4, speech clear, no focal neuro deficits noted HEENMT: normocephalic, atraumatic, EOMI, sclerae anicteric, moist oral mucosa Respiratory: Clear to auscultation bilaterally without crackles, rhonchi or wheezes, nonlabored breathi
--- NOTE | 2023-03-10 12:32 | PM.CNOR ---
Assessment and Plan Assessment and plan (1) Septic arthritis of knee, right: Qualifiers: Septic arthritis organism: due to unspecified organism Qualified Code(s): M00.9 - Pyogenic arthritis, unspecified Code(s): M00.9 - Pyogenic arthritis, unspecified Status: Acute Assessment and Plan: 83-year-old female who has got septic arthritis right knee. This appears to have been a spontaneous hematogenous seeding without any known other source. I spoke with the patient and her daughter. REM recommendation is arthroscopic washout of the right knee. Tentatively this is planned for tomorrow early afternoon. Risks and potential complications were discussed in detail and questions answered. The Infectious Disease pharmacist has been consulted to provide some guidance. Thank you for the consultation. History of Present Illness HPI Consult date: 03/10/23 Chief complaint: Septic/Inflamatory Arthritis/Cellulitis Narrative: This document created with [id number] technology and is subject to ironworker foreman irregularities. 83-year-old female with a couple of week history of increasing pain and swelling in the right knee somewhat so that she was unable to walk over the weekend. She was brought back to the ER yesterday. Knee aspiration demonstrated purulence with the Gram stain with Gram-positive cocci. She was admitted for further evaluation and treatment. Currently on vancomycin IV. Does not recall any recent infection and other than doing cleaning work around her house had no unusual activity prior to the onset of this. Has known arthritis in that knee and has had numerous injections over the years but the last one was over a year ago by her PCP. Review of Systems Constitutional: Constitutional: Reports no additional constitutional complaints, Denies excessive sweating and Denies fatigue Eyes: Eyes: Reports no additional eye complaints ENT: Reports system reviewed and no additional complaints, except as documented Cardiovascular: Cardiovascular: Denies chest pain at rest and Denies dyspnea Respiratory: Respiratory: Reports no additional respiratory complaints and Denies dyspnea Gastrointestinal: Gastrointestinal: Reports no additional gastrointestinal complaints Musculoskeletal: Musculoskeletal: Reports as per HPI Integumentary/Breasts: Skin/Breast: Reports system reviewed and no additional complaints, except as docu Neurologic: Reports as per HPI Endocrine: Endocrine: Denies excessive sweating and Denies fatigue Hematologic/Lymphatic: Hematologic/Lymphatic: Denies easy bleeding and Denies easy bruising PMFSH Past Medical History Medical History Asthma Depression GERD (gastroesophageal reflux disease) HTN (hypertension) Surgical History Surgical History H/O cataract extraction History of hysterectomy History of tonsillectomy S/P laparoscopic cholecystectomy 08/26/22 Family History Family History Mother Lung disease Son Acute myocardial infarction Son Involved in airplane accident Social History Social History Social History: She is and lives alone. She ambulates with a cane or walker. She has 3 children. 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 She is a lifelong nonsmoker. Code status: Full code Healthcare power of deputy county attorney: Avis (daughter) Smoking status: Never smoker Alcohol intake: never Substance use: never Substance use type: does not use Lack of Transportation: No Lack of Food: Never True Current Housing: I Have Housing Concerned About Future Housing: No Difficulty Paying Gas/Electric Bills: No Difficulty Paying for Meds: No Currently Unemployed: No Education: Don't Know Difficulty w/ Childcare or Family
[2023-03-10] MEDS: KETOROLAC 15 MG/ML VIAL (*BKC) IV PUSH (12:47)
[2023-03-10 13:40] VITALS: BP 119/46; PULSE 83; RESP 12; TEMP 36.9; O2SAT 91
[2023-03-10] MEDS: ONDANSETRON INJ 4 MG/2 ML VIAL IV PUSH (14:37)
[2023-03-10] MEDS: oxyCODONE HCL (*CRX) 5 MG TAB IR PO ×2 (14:37→19:52)
[2023-03-10 19:28] VITALS: BP 145/50; PULSE 86; RESP 13; TEMP 36.5; O2SAT 96
[2023-03-10 22:04] VITALS: RESP 18
[2023-03-10] MEDS: MONTELUKAST SODIUM 10 MG TABLET PO (22:35)
[2023-03-10] MEDS: ASPIRIN 81 MG ENTERIC TABLET PO (22:35)
[2023-03-10 22:50] VITALS: BP 127/53; PULSE 91; RESP 19; TEMP 37.3; O2SAT 90
[2023-03-11] VITALS (16 sets, daily range): BP systolic 135–167; BP diastolic 51–88; PULSE 73–97; RESP 11–20; TEMP 36.4–37.2; O2SAT 92–100
[2023-03-11] MEDS: HYDROcodone/acetaminophen (*CRX) 5-325 MG TABLET 1 TAB PO (01:38)
--- NOTE | 2023-03-11 02:09 | PC.NURSE ---
Preliminary blood cultures released at 2328 for aerobic and anaerobic, and at 0018 for anaerobic only. All reports state positive for Gram positive cocci. Lab did not notify nursing staff of critical result. Report was found at 0105 while viewing patient chart, Dr Almeida notified at 0118, no new orders received.
[2023-03-11 05:36] LABS: Hematocrit 31.7 % (37.0-47.0); Hemoglobin 9.9 g/dL (12.0-15.0); Mean Corpuscular HGB Conc 31.2 g/dl (32-36); Mean Corpuscular Hemoglobin 27.8 pg (26-34); Mean Platelet Volume 9.7 fl (7.4-10.4); Platelet Count Result 447 k/mm3 (150-375); Red Blood Count 3.56 M/mm3 (4.2-5.4); Red Cell Distribution Width 15.6 % (11.5-14.5)
[2023-03-11 05:51] LABS: Alanine Aminotransferase 15 U/L (6-35); Albumin Level 2.8 g/dL (3.5-5.1); Alkaline Phosphatase 157 U/L (38-126); Anion Gap 5 mmol/L (8-16); Aspartate Amino Transferase 21 U/L (14-36); Blood Urea Nitrogen 25 mg/dL (7-17); Calcium 8.3 mg/dL (8.4-10.2); Carbon Dioxide 27 mmol/L (22-30); Chloride 106 mmol/L (98-107); Estimated CRCL calculation 34 ml/min; Estimated Glomerular Filt Rate 47; Glucose 81 mg/dL (65-110); Magnesium 2.2 mg/dL (1.6-2.3); Potassium 3.9 mmol/L (3.4-5.0); Sodium 138 mmol/L (137-145)
[2023-03-11] MEDS: VANCOMYCIN 1,250 MG/NS 250 ML 1,250 MG/250 ML BAG 166.67 MG IVPB (06:00)
[2023-03-11] MEDS: SODIUM CHLORIDE 0.9% IV 1,000 ML 125 ML IV CONT ×3 (06:00→21:53)
[2023-03-11] MEDS: oxyCODONE HCL (*CRX) 5 MG TAB IR PO ×3 (06:01→23:10)
[2023-03-11 07:38] LABS: Platelet Estimate Increased (Adequate)
[2023-03-11 07:39] LABS: Band Neutrophils Percent 6 % (0-6); Basophils Absolute Manual 0.54 K/mm3 (0.0-0.1); Basophils Percent Manual 3 % (0-1); Burr Cells 1+ (NORMAL); Lymphocytes Percent Manual 5 % (18-44); Metamyelocytes Percent 4 %; Monocytes Percent Manual 10 % (3-9); Myelocytes Percent 2 %; Neutrophils Absolute Manual 12.96 K/mm3 (1.7-7.2); Neutrophils Percent Manual 66 % (46-73); Platelet Clumps Present; Schistocytes None Seen (NORMAL); Total Cells Counted 100
[2023-03-11] MEDS: CITALOPRAM HYDROBROMIDE 20 MG TABLET PO (08:30)
[2023-03-11] MEDS: PANTOPRAZOLE 40 MG TABLET PO (08:30)
[2023-03-11] MEDS: FLUTICASONE/SALMETEROL 230-21 MCG INHALER 1 PUFF 2 PUFF INHALATION ×2 (08:32→21:09)
--- NOTE | 2023-03-11 10:00 | P.PNIM_ITS ---
Progress Note: A&P Assessment and Plan (1) Bacteremia: Code(s): R78.81 - Bacteremia Status: Acute Assessment and Plan: * Blood cultures grew gram positive cocci, Staphylococcus aureus * Currently on vanc and cefazolin * Awaiting sensitivities * Will most likely need IV antibiotics * Repeat cultures ordered * Will adjust therapy when appropriate (2) Septic arthritis of knee, right: Qualifiers: Septic arthritis organism: due to unspecified organism Qualified Code(s): M00.9 - Pyogenic arthritis, unspecified Code(s): M00.9 - Pyogenic arthritis, unspecified Status: Acute Assessment and Plan: * Presented with worsening pain, swelling and immobility * Xray indicates worsening effusion with possible cellulitis * Joint aspiration in the ED * Gram stain indicates gram positive cocci * Blood cultures grew staph aureus * Await culture results * Continue vanco and ancef * pain medications on board * Ortho consulted * Trend pain * Trend symptoms * Joint washout 03/11/23 (3) Chronic kidney disease: Qualifiers: Chronic kidney disease stage: stage 3 (moderate) Chronic kidney disease stage 3 subtype: stage 3b (GFR 30-44) Qualified Code(s): N18.32 - Chronic kidney disease, stage 3b Code(s): N18.9 - Chronic kidney disease, unspecified Status: Acute Assessment and Plan: * Current BUN/Cr 25/1.10 * Stage 3 * Baseline creatinine appears to be 0.8-1.10 * Stable at this time * Avoid nephrotoxic medications * trend labs * Adjust therapy as indicated (4) HTN (hypertension): Qualifiers: Hypertension type: primary hypertension Qualified Code(s): I10 - Essential (primary) hypertension Code(s): I10 - Essential (primary) hypertension Status: Chronic Assessment and Plan: * BP is stable at 146/52 * Continue home medications * Trend BP * adjust therapy as indicated Time Spent With Patient Time: 42 minutes Time with patient: Greater than 35 minutes Subjective Date/time seen: 03/11/23 1000 Interval history: 03/11/23 1000 patient really did have any changes today. She is still a lot of pain claiming that her pain is a 10/10. Her knee is still swollen. She is awaiting to go down for a washout. Daughter is present. Blood cultures did come back positive with Staph aureus. Still waiting sensitivities. Currently denies any chest pain, shortness a breath, nausea, vomiting, diarrhea or constipation. 03/10/23 1145 She is in a lot of pain. She is not really trying to talk to me at this time. Her daughter was present and she was stating that she was not getting any relief with the Dilaudid and the oral medications. She is also requesting a urinary catheter for further comfort. She denies any further chest pain, shortness of breath, nausea, vomiting, diarrhea or constipation. 03/09/23? 23:20 83-year-old female with a past medical history of essential hypertension, GERD, asthma, osteoarthritis and chronic gait instability who presented to the ER with right knee pain.? The patient reports that she came to the ER on the due to knee pain and was discharged home with naproxen and [place].? Or red despite these medications as her knee pain has become worse.? She has went from being able to garden.? As the week has progressed her pain is become worse.? The knee has become warm and markedly swollen.? She has pain with both
--- NOTE | 2023-03-11 10:00 | PM.IMPN ---
Progress Note: A&P Assessment and Plan (1) Bacteremia: Code(s): R78.81 - Bacteremia Status: Acute Assessment and Plan: Blood cultures grew gram positive cocci, Staphylococcus aureus Currently on vanc and cefazolin Awaiting sensitivities Will most likely need IV antibiotics Repeat cultures ordered Will adjust therapy when appropriate (2) Septic arthritis of knee, right: Qualifiers: Septic arthritis organism: due to unspecified organism Qualified Code(s): M00.9 - Pyogenic arthritis, unspecified Code(s): M00.9 - Pyogenic arthritis, unspecified Status: Acute Assessment and Plan: Presented with worsening pain, swelling and immobility Xray indicates worsening effusion with possible cellulitis Joint aspiration in the ED Gram stain indicates gram positive cocci Blood cultures grew staph aureus Await culture results Continue vanco and ancef pain medications on board Ortho consulted Trend pain Trend symptoms Joint washout 03/11/23 (3) Chronic kidney disease: Qualifiers: Chronic kidney disease stage: stage 3 (moderate) Chronic kidney disease stage 3 subtype: stage 3b (GFR 30-44) Qualified Code(s): N18.32 - Chronic kidney disease, stage 3b Code(s): N18.9 - Chronic kidney disease, unspecified Status: Acute Assessment and Plan: Current BUN/Cr 25/1.10 Stage 3 Baseline creatinine appears to be 0.8-1.10 Stable at this time Avoid nephrotoxic medications trend labs Adjust therapy as indicated (4) HTN (hypertension): Qualifiers: Hypertension type: primary hypertension Qualified Code(s): I10 - Essential (primary) hypertension Code(s): I10 - Essential (primary) hypertension Status: Chronic Assessment and Plan: BP is stable at 146/52 Continue home medications Trend BP adjust therapy as indicated Time Spent With Patient Time: 42 minutes Time with patient: Greater than 35 minutes Subjective Date/time seen: 03/11/23 1000 Interval history: 03/11/23 1000 patient really did have any changes today. She is still a lot of pain claiming that her pain is a 10/10. Her knee is still swollen. She is awaiting to go down for a washout. Daughter is present. Blood cultures did come back positive with Staph aureus. Still waiting sensitivities. Currently denies any chest pain, shortness a breath, nausea, vomiting, diarrhea or constipation. 03/10/23 1145 She is in a lot of pain. She is not really trying to talk to me at this time. Her daughter was present and she was stating that she was not getting any relief with the Dilaudid and the oral medications. She is also requesting a urinary catheter for further comfort. She denies any further chest pain, shortness of breath, nausea, vomiting, diarrhea or constipation. 03/09/23? 23:20 83-year-old female with a past medical history of essential hypertension, GERD, asthma, osteoarthritis and chronic gait instability who presented to the ER with right knee pain.? The patient reports that she came to the ER on the due to knee pain and was discharged home with naproxen and [place].? Or red despite these medications as her knee pain has become worse.? She has went from being able to garden.? As the week has progressed her pain is become worse.? The knee has become warm and markedly swollen.? She has pain with both passive and active ranges of motion.? She has had so much difficulty with the knee that she now has had a fall when she tried to transition to a seated position.? She is usually able to walk with a cane or a worse case scenario a walker but has been unable to bear any weight on the leg for the last 24 hours.? She reports that she just does not feel good and does not feel like eating.? She denies any chest pain or shortness of breath.? She denies any scratches or abrasions to the extremity.? S
[2023-03-11] MEDS: HYDROmorphone HCL INJ (*CRX) 1 MG/ML SYR IV PUSH (10:52)
[2023-03-11] MEDS: LACTATED RINGERS 1,000 ML 30 ML IV CONT (12:39)
--- NOTE | 2023-03-11 12:42 | WPDANESEPPF ---
Anes - Initial Pre Proc Eval Procedure: Operation Date: 03/11/23 13:30 Proposed Procedures p Arthroscopic Washout Right Knee - Prabhakar Padron MD Date/Time: 03/11/23 12:42 Surgeon: Olive Her MD Pre Op Diagnosis: Septic/Inflamatory Arthritis/Cellulitis Patient Data Age: 83 Gender: F Height: 1.6 m Weight: 81.65 kg Last Vital Signs Temp 37.1 C 03/11/23 12:36 Pulse 97 03/11/23 12:36 Resp 16 03/11/23 12:36 BP 146/52 H 03/11/23 12:36 Pulse Ox 93 03/11/23 12:36 O2 Del Method Room Air 03/11/23 12:36 Allergies Allergy/AdvReac Type Severity Reaction Status Date / Time amoxicillin [From Augmentin] Allergy Rash Verified 03/09/23 12:36 azithromycin [From Zithromax] Allergy Rash Verified 03/09/23 12:36 clavulanic acid Allergy Rash Verified 03/09/23 12:36 [From Augmentin] doxycycline Allergy Rash Verified 03/09/23 12:36 iodine Allergy Anaphylaxis Verified 03/09/23 12:36 norepinephrine Allergy Unknown Verified 03/09/23 12:36 [From Levophed (bitartrate)] Sulfa (Sulfonamide Allergy Rash Verified 03/09/23 12:36 Antibiotics) Home Medications Medication Instructions Recorded Confirmed Type aspirin 81 mg tablet 81 mg PO HS 08/25/22 03/09/23 History calcium 600 mg (1,500 mg)-vit 600 tablet PO DAILY 08/25/22 03/09/23 History C-vit D2 200 unit-vit E-minerals tablet citalopram 20 mg tablet 20 mg PO DAILY 08/25/22 03/09/23 History fluticasone furoate 200 200 inh inhalation DAILY 08/25/22 03/09/23 History mcg-vilanterol 25 mcg/dose inhalation powder (Breo Ellipta) hydrochlorothiazide 12.5 mg tablet 12.5 mg PO DAILY 08/25/22 03/09/23 History montelukast 10 mg tablet 10 mg PO HS 08/25/22 03/09/23 History omeprazole 20 mg capsule,delayed 20 mg PO DAILY 08/25/22 03/09/23 History release hydrocodone 5 mg-acetaminophen 325 1 tablet PO Q6H PRN pain #12 tabs 03/03/23 03/09/23 Rx mg tablet naproxen 500 mg tablet 500 mg PO BID #30 tabs 03/03/23 03/09/23 Rx Laboratory Tests 03/11/23 05:00 WBC 18.0 H K/mm3 (4.5-10.0) RBC 3.56 L M/mm3 (4.2-5.4) Hgb 9.9 L g/dL (12.0-15.0) Hct 31.7 L % (37.0-47.0) MCV 89.0 fl (80-100) MCH 27.8 pg (26-34) MCHC 31.2 L g/dl (32-36) RDW 15.6 H % (11.5-14.5) Plt Count 447 H k/mm3 (150-375) MPV 9.7 fl (7.4-10.4) Immature Gran % (Auto) Not Reportable Neut % (Auto) Not Reportable Lymph % (Auto) Not Reportable [place] % (Auto) Not Reportable Eos % (Auto) Not Reportable Baso % (Auto) Not Reportable Lymph # (Auto) Not Reportable [place] # (Auto) Not Reportable Eos # (Auto) Not Reportable Baso # (Auto) Not Reportable Abs Immat Gran (auto) Not Reportable Absolute Neuts (auto) Not Reportable Absolute Nucleated RBC Not Reportable Total Counted 100 Neutrophils % (Manual) 66 % (46-73) Band Neutrophils % 6 % (0-6) Lymphocytes % (Manual) 5 L % (18-44) Monocytes % (Manual) 10 H % (3-9) Basophils % (Manual) 3 H % (0-1) Metamyelocytes % 4 % Myelocytes % 2 % Nucleated RBC % Not Reportable Abs Neuts (Manual) 12.96 H K/mm3 (1.7-7.2) Abs Lymphs (Manual) 0.90 L K/mm3 (1.1-4.5) Abs Monocytes (Manual) 1.80 H K/mm3 (0.1-0.90) Abs Basophils (Manual) 0.54 H K/mm3 (0.0-0.1) Platelet Estimate Increased (Adequate) Clumped Platelets Present Juan Cells 1+ (NORMAL) Schistocytes None seen (NORMAL) Sodium 138 mmol/L (137-145) Potassium 3.9 mmol/L (3.4-5.0) Chloride 106 mmol/L (98-107) Carbon Dioxide 27 mmol/L (22-30) Anion Gap 5 L mmol/L (8-16) BUN 25 H mg/dL (7-17) Creatinine 1.10 H mg/dL (0.7-1.0) Estim Creat Clear Calc 34 ml/min Estimated GFR 47 L (59 - ) Glucose 81 mg/dL (65-110) Calcium 8.3 L mg/dL (8.4-10.2) Magnesium 2.2 mg/dL (1.6-2.3) Total Bi
--- NOTE | 2023-03-11 12:44 | WPDHPUPDATE1 ---
History and Physical Update Update Date/Time: 03/11/23 12:44 History and Physical has been reviewed, including an updated exam of the patient. There are NO changes in the patient's condition. Risks, benefits, and alternatives have been discussed and questions answered. Patient agrees to proceed with procedure.
[2023-03-11] MEDS: ceFAZolin 2 GM/D5W 50 ML 2 GM/50 ML BAG IVPB (13:04)
[2023-03-11] MEDS: LIDOCAINE HCL 1% LOCAL INJ 20 ML VIAL INFILTRATE (13:24)
--- NOTE | 2023-03-11 14:55 | W.PM.PROC2 ---
Procedure Note - Detailed Date of Procedure 03/11/23 Pre-op Diagnosis septic arthritis right knee Post-op Diagnosis Same Procedure Performed right knee arthroscopic washout Surgeon Prabhakar Padron MD Anesthesia General Description of Procedure The patient was identified and proper site identified and she was taken to the operating room, transferred to the OR table placing her supine taking care to pad the torso and extremities. After general anesthetic induction and intubation, a nonsterile tourniquet was placed high on the right thigh; it remained inflated for 36 minutes during the procedure. The right lower extremity was positioned, prepped and draped in usual sterile fashion. 10 cc of 1% lidocaine was injected into the subcutaneous tissue in the area of the portals at start of the procedure, and an additional 10 at the end. The portals were established and the arthroscopy was carried out. Initially the arthroscopy was done with the tourniquet down however due to the friable hypervascular tissue the decision was made to inflated to 300 millimeters of mercury remaining up for about 36 minutes. There was an abundance of purulence as well as extensive fibrinous tissue that was systematically removed from the joint using the if shaver. Throughout the procedure the ArthroCare Wand was used for hemostasis. The anterior posterior cruciate ligaments were in continuity with there was extensive tricompartmental spurring noted and severe tricompartmental degenerative arthritic changes appreciated. Both the mediolateral menisci had extensive complex tearing. Essentially a tricompartmental synovectomy was carried out with debridement of the loose portions of the menisci. Through the superomedial portal a 1/8th inch Hemovac drain was placed exiting the anterolateral aspect of the distal thigh. The knee was flushed with a copious amount of arthroscopic fluid and equipment was removed. Portals were closed with three O nylon suture and a sterile dressing was applied. She tolerated the procedure well, was awakened, extubated and taken to recovery area in stable condition. There were no known intraoperative complications. Estimated blood loss was negligible; she received perioperative antibiotics. Estimated Blood Loss -20.0 Tourniquet Time 36 Urine Output -500.0 Drains Yes ( 1/8 inch Hemovac) Packing No Pathology None sent Complications No immediate complications Condition Stable Disposition PACU [facility] Billing Surgery - Charge Forward: Surgery Billing ([id number])
[2023-03-11] MEDS: fentaNYL CITRATE INJ (*CRX) 100 MCG/2 ML VIAL 25 MCG IV PUSH ×4 (15:03→15:22)
[2023-03-11] MEDS: ONDANSETRON INJ 4 MG/2 ML VIAL IV PUSH (16:16)
[2023-03-11] MEDS: MONTELUKAST SODIUM 10 MG TABLET PO (20:58)
[2023-03-11] MEDS: HEPARIN SODIUM 5,000 UNITS/ML VIAL 5000 UNITS SUB-Q (20:58)
[2023-03-11] MEDS: ASPIRIN 81 MG ENTERIC TABLET PO (20:59)
[2023-03-11] MEDS: FAMOTIDINE 20 MG TABLET PO (20:59)
[2023-03-12] VITALS (8 sets, daily range): BP systolic 124–163; BP diastolic 55–64; PULSE 71–95; RESP 16–20; TEMP 36.6–37.2; O2SAT 91–99
[2023-03-12 05:23] LABS: Hematocrit 28.2 % (37.0-47.0); Hemoglobin 8.8 g/dL (12.0-15.0); Mean Corpuscular HGB Conc 31.2 g/dl (32-36); Mean Corpuscular Hemoglobin 27.3 pg (26-34); Mean Corpuscular Volume 87.6 fl (80-100); Mean Platelet Volume 9.5 fl (7.4-10.4); Platelet Count Result 447 k/mm3 (150-375); Red Blood Count 3.22 M/mm3 (4.2-5.4); Red Cell Distribution Width 15.3 % (11.5-14.5); White Blood Count 19.8 K/mm3 (4.5-10.0)
[2023-03-12 05:33] LABS: Alanine Aminotransferase 13 U/L (6-35); Albumin Level 2.6 g/dL (3.5-5.1); Alkaline Phosphatase 136 U/L (38-126); Anion Gap 5 mmol/L (8-16); Aspartate Amino Transferase 22 U/L (14-36); Bilirubin,Total 0.7 mg/dL (0.2-1.3); Blood Urea Nitrogen 21 mg/dL (7-17); Calcium 7.9 mg/dL (8.4-10.2); Carbon Dioxide 27 mmol/L (22-30); Chloride 107 mmol/L (98-107); Estimated CRCL calculation 37 ml/min; Estimated Glomerular Filt Rate 53; Glucose 104 mg/dL (65-110); Potassium 3.9 mmol/L (3.4-5.0); Sodium 139 mmol/L (137-145)
[2023-03-12] MEDS: SODIUM CHLORIDE 0.9% IV 1,000 ML 125 ML IV CONT (06:01)
[2023-03-12 06:05] LABS: Anisocytosis 1+ (NORMAL); Band Neutrophils Percent 3 % (0-6); Eosinophils Absolute Manual 0.39 K/mm3 (0.02-0.5); Eosinophils Percent Manual 2 % (0-4); Lymphocytes Absolute Manual 2.17 K/mm3 (1.1-4.5); Metamyelocytes Percent 2 %; Monocytes Absolute Manual 0.99 K/mm3 (0.1-0.90); Monocytes Percent Manual 5 % (3-9); Myelocytes Percent 2 %; Neutrophils Absolute Manual 15.44 K/mm3 (1.7-7.2); Neutrophils Percent Manual 75 % (46-73); Platelet Estimate Increased (Adequate); Schistocytes None Seen (NORMAL); Total Cells Counted 100
[2023-03-12 06:06] LABS: Platelet Clumps Present
[2023-03-12] MEDS: FLUTICASONE/SALMETEROL 230-21 MCG INHALER 1 PUFF 2 PUFF INHALATION ×2 (07:55→20:33)
[2023-03-12] MEDS: oxyCODONE HCL (*CRX) 5 MG TAB IR PO (08:47)
[2023-03-12] MEDS: SENNA/DOCUSATE SODIUM TABLET 2 TAB PO ×2 (08:48→19:05)
[2023-03-12] MEDS: hydroCHLOROthiazide 12.5 MG CAPSULE PO (08:49)
[2023-03-12] MEDS: FAMOTIDINE 20 MG TABLET PO ×2 (08:49→20:33)
[2023-03-12] MEDS: CITALOPRAM HYDROBROMIDE 20 MG TABLET PO (08:49)
[2023-03-12] MEDS: PANTOPRAZOLE 40 MG TABLET PO (08:49)
[2023-03-12] MEDS: HEPARIN SODIUM 5,000 UNITS/ML VIAL 5000 UNITS SUB-Q ×2 (08:50→20:33)
--- NOTE | 2023-03-12 09:38 | WPDANESPN ---
Anes - Prog Note Post-Op Date/Time: 03/12/23 09:38 Cardiovascular status: normal Respiratory status: normal Airway patency: baseline Mental status: baseline Post-Op hydration status: normal Vital Signs: Last Vital Signs Temp 98.0 F 03/12/23 09:18 Pulse 78 03/12/23 09:18 Resp 18 03/12/23 09:18 BP 142/55 H 03/12/23 09:18 Pulse Ox 92 03/12/23 09:18 O2 Del Method Nasal Cannula 03/11/23 21:40 O2 Flow Rate 1 03/11/23 21:40 Pain Score (VAS): 8-9 prior to pain medicine I/O: Intake & Output 03/11/23 03/12/23 03/12/23 23:59 07:59 15:59 Intake Total 1270 1300 Output Total 250 650 Balance 1020 650 Laboratory Tests 03/12/23 04:51 03/12/23 04:51 03/12/23 04:51 WBC 19.8 H RBC 3.22 L Hgb 8.8 L Hct 28.2 L MCV 87.6 MCH 27.3 MCHC 31.2 L RDW 15.3 H Plt Count 447 H MPV 9.5 Immature Gran % (Auto) Not Reportable Neut % (Auto) Not Reportable Lymph % (Auto) Not Reportable Grainger % (Auto) Not Reportable Eos % (Auto) Not Reportable Baso % (Auto) Not Reportable Lymph # (Auto) Not Reportable Grainger # (Auto) Not Reportable Eos # (Auto) Not Reportable Baso # (Auto) Not Reportable Abs Immat Gran (auto) Not Reportable Absolute Neuts (auto) Not Reportable Absolute Nucleated RBC Not Reportable Total Counted 100 Neutrophils % (Manual) 75 H Band Neutrophils % 3 Lymphocytes % (Manual) 11.0 L Monocytes % (Manual) 5 Eosinophils % (Manual) 2 Metamyelocytes % 2 Myelocytes % 2 Nucleated RBC % Not Reportable Abs Neuts (Manual) 15.44 H Abs Lymphs (Manual) 2.17 Abs Monocytes (Manual) 0.99 H Absolute Eos (Manual) 0.39 Platelet Estimate Increased Clumped Platelets Present Anisocytosis 1+ Schistocytes None seen Sodium 139 Potassium 3.9 Chloride 107 Carbon Dioxide 27 Anion Gap 5 L BUN 21 H Creatinine 1.00 Estim Creat Clear Calc 37 Estimated GFR 53 L Glucose 104 Calcium 7.9 L Total Bilirubin 0.7 AST 22 ALT 13 Alkaline Phosphatase 136 H Total Protein 6.0 L Albumin 2.6 L Microbiology 03/09/23 15:06 Blood Blood Culture - Final Staphylococcus aureus 03/09/23 15:06 Blood Blood Culture - Final Staphylococcus aureus 03/09/23 16:22 Synovial Fluid Right Knee Anaerobic Culture - Preliminary 03/09/23 16:22 Synovial Fluid Right Knee Aerobic Culture - Preliminary Staphylococcus aureus Post-procedural complaints: none Patient Feedback: Patient satisfied with anesthetic care.
--- NOTE | 2023-03-12 09:45 | PM.IMPN ---
Progress Note: A&P Assessment and Plan (1) Bacteremia: Code(s): R78.81 - Bacteremia Status: Acute Assessment and Plan: Blood cultures grew gram positive cocci, Staphylococcus aureus, MSSA Currently on vanc, DC'd cefazolin Awaiting sensitivities Will most likely need IV antibiotics Repeat cultures NGTD Wound culture is Staph aureus, MSSA Will adjust therapy when appropriate (2) Septic arthritis of knee, right: Qualifiers: Septic arthritis organism: due to unspecified organism Qualified Code(s): M00.9 - Pyogenic arthritis, unspecified Code(s): M00.9 - Pyogenic arthritis, unspecified Status: Acute Assessment and Plan: POD1 Presented with worsening pain, swelling and immobility Xray indicates worsening effusion with possible cellulitis Joint aspiration in the ED Gram stain indicates gram positive cocci Blood cultures grew staph aureus Await culture staph aureus Continue vanco for now pain medications on board Ortho consulted Trend pain Trend symptoms Joint washout 03/11/23 (3) Chronic kidney disease: Qualifiers: Chronic kidney disease stage: stage 3 (moderate) Chronic kidney disease stage 3 subtype: stage 3b (GFR 30-44) Qualified Code(s): N18.32 - Chronic kidney disease, stage 3b Code(s): N18.9 - Chronic kidney disease, unspecified Status: Acute Assessment and Plan: Current BUN/Cr 21/1.00 Stage 3 Baseline creatinine appears to be 0.8-1.10 Stable at this time Avoid nephrotoxic medications trend labs Adjust therapy as indicated (4) HTN (hypertension): Qualifiers: Hypertension type: primary hypertension Qualified Code(s): I10 - Essential (primary) hypertension Code(s): I10 - Essential (primary) hypertension Status: Chronic Assessment and Plan: BP is stable at 154/64 Continue home medications Trend BP adjust therapy as indicated Time Spent With Patient Time: 48 minutes Time with patient: Greater than 35 minutes Subjective Date/time seen: 03/12/23944 Interval history: 03/12/23944 patient was currently sit in the chair. She stated that her pain was better than it has been. Her daughter was also present stated that she does look a lot better than she did yesterday. She is still unable to move her knee. She does have a drain in place which is not really draining anything at this time. Wound culture did grow Staph aureus. Currently on vancomycin at this time. 03/11/23 1000 patient really did have any changes today. She is still a lot of pain claiming that her pain is a 10/10. Her knee is still swollen. She is awaiting to go down for a washout. Daughter is present. Blood cultures did come back positive with Staph aureus. Still waiting sensitivities. Currently denies any chest pain, shortness a breath, nausea, vomiting, diarrhea or constipation. 03/10/23 1145 She is in a lot of pain. She is not really trying to talk to me at this time. Her daughter was present and she was stating that she was not getting any relief with the Dilaudid and the oral medications. She is also requesting a urinary catheter for further comfort. She denies any further chest pain, shortness of breath, nausea, vomiting, diarrhea or constipation. 03/09/23? 23:20 83-year-old female with a past medical history of essential hypertension, GERD, asthma, osteoarthritis and chronic gait instability who presented to the ER with right knee pain.? The patient reports that she came to the ER on the due to knee pain and was discharged home with naproxen and [place].? Or red despite these medications as her knee pain has become worse.? She has went from being able to garden.? As the week has progressed her pain is become worse.? The knee has become warm and markedly swollen.? She has pain with both passive and active ranges of jeffrey
--- NOTE | 2023-03-12 09:45 | P.PNIM_ITS ---
Progress Note: A&P Assessment and Plan (1) Bacteremia: Code(s): R78.81 - Bacteremia Status: Acute Assessment and Plan: * Blood cultures grew gram positive cocci, Staphylococcus aureus, MSSA * Currently on vanc, DC'd cefazolin * Awaiting sensitivities * Will most likely need IV antibiotics * Repeat cultures NGTD * Wound culture is Staph aureus, MSSA * Will adjust therapy when appropriate (2) Septic arthritis of knee, right: Qualifiers: Septic arthritis organism: due to unspecified organism Qualified Code(s): M00.9 - Pyogenic arthritis, unspecified Code(s): M00.9 - Pyogenic arthritis, unspecified Status: Acute Assessment and Plan: * POD1 * Presented with worsening pain, swelling and immobility * Xray indicates worsening effusion with possible cellulitis * Joint aspiration in the ED * Gram stain indicates gram positive cocci * Blood cultures grew staph aureus * Await culture staph aureus * Continue vanco for now * pain medications on board * Ortho consulted * Trend pain * Trend symptoms * Joint washout 03/11/23 (3) Chronic kidney disease: Qualifiers: Chronic kidney disease stage: stage 3 (moderate) Chronic kidney disease stage 3 subtype: stage 3b (GFR 30-44) Qualified Code(s): N18.32 - Chronic kidney disease, stage 3b Code(s): N18.9 - Chronic kidney disease, unspecified Status: Acute Assessment and Plan: * Current BUN/Cr 21/1.00 * Stage 3 * Baseline creatinine appears to be 0.8-1.10 * Stable at this time * Avoid nephrotoxic medications * trend labs * Adjust therapy as indicated (4) HTN (hypertension): Qualifiers: Hypertension type: primary hypertension Qualified Code(s): I10 - Essential (primary) hypertension Code(s): I10 - Essential (primary) hypertension Status: Chronic Assessment and Plan: * BP is stable at 154/64 * Continue home medications * Trend BP * adjust therapy as indicated Time Spent With Patient Time: 48 minutes Time with patient: Greater than 35 minutes Subjective Date/time seen: 03/12/23944 Interval history: 03/12/23944 patient was currently sit in the chair. She stated that her pain was better than it has been. Her daughter was also present stated that she does look a lot better than she did yesterday. She is still unable to move her knee. She does have a drain in place which is not really draining anything at this time. Wound culture did grow Staph aureus. Currently on vancomycin at this time. 03/11/23 1000 patient really did have any changes today. She is still a lot of pain claiming that her pain is a 10/10. Her knee is still swollen. She is awaiting to go down for a washout. Daughter is present. Blood cultures did come back positive with Staph aureus. Still waiting sensitivities. Currently denies any chest pain, shortness a breath, nausea, vomiting, diarrhea or constipation. 03/10/23 1145 She is in a lot of pain. She is not really trying to talk to me at this time. Her daughter was present and she was stating that she was not getting any relief with the Dilaudid and the oral medications. She is also requesting a urinary catheter for further comfort. She denies any further chest pain, shortness of breath, nausea, vomiting, diarrhea or constipation. 03/09/23? 23:20 83-year-old female with a past medical history of e
--- NOTE | 2023-03-12 15:00 | PM.PNORT ---
Progress Note: A&P Assessment and Plan (1) Septic arthritis of knee, right: Qualifiers: Septic arthritis organism: due to unspecified organism Qualified Code(s): M00.9 - Pyogenic arthritis, unspecified Code(s): M00.9 - Pyogenic arthritis, unspecified Status: Acute Plan 83-year-old female postop day one arthroscopic washout right septic knee. Patient had Staph aureus in the knee as well as blood cultures. Awaiting sensitivities. Will likely need four weeks of antibiotics. Hopefully there is a sensitivity to an oral agent versus IV. If it is IV she will need a PICC line. Is likely going to need rehab placement. Following. Subjective Subjective Date/Time Seen: 03/12/23 15:00 Post Op day: 1 Principal diagnosis: Septic right knee status post arthroscopic debridement on March 11, 2023 Interval history: 83-year-old female who is on her first postop day after arthroscopic debridement of a septic knee. Is having discomfort which is not unexpected. Minimal drainage in the collection device. Review of Systems Review of Systems: All systems reviewed & are unremarkable except as noted in HPI and below Exam Const: General: cooperative and no acute distress Resp: Effort & Inspection: normal respiratory effort GI: Inspection: non-distended Extrem: Other: Dressing dry right lower extremity. Drain removed without incident. Grossly neurovascular status intact right lower extremity but exam limited somewhat secondary to pain. Objective Data Vital Signs Vital Signs: Vital Signs - 24 hr 03/11/23 15:10 03/11/23 15:25 03/11/23 15:45 Temperature 97.7 F Pulse Rate 78 78 77 Respiratory Rate 18 14 16 Blood Pressure 167/74 H 140/88 156/57 H Pulse Oximetry 97 98 97 Oxygen Delivery Nasal Cannula Nasal Cannula Oxygen Flow Rate 2 2 03/11/23 16:00 03/11/23 16:30 03/11/23 17:32 Temperature 97.6 F 97.6 F 98.7 F Pulse Rate 73 75 78 Respiratory Rate 16 16 18 Blood Pressure 158/60 H 163/64 H 167/60 H Pulse Oximetry 97 97 98 Oxygen Delivery Oxygen Flow Rate 03/11/23 20:00 03/11/23 21:55 03/11/23 21:12 Temperature 97.6 F Pulse Rate 83 Respiratory Rate 16 Blood Pressure 143/59 H Pulse Oximetry 96 97 Oxygen Delivery Nasal Cannula Nasal Cannula Oxygen Flow Rate 2 2 03/11/23 21:40 03/12/23 01:18 03/12/23 06:34 Temperature 98 F 98.7 F Pulse Rate 71 81 Respiratory Rate 18 16 Blood Pressure 124/60 163/58 H Pulse Oximetry 96 99 92 Oxygen Delivery Nasal Cannula Oxygen Flow Rate 1 03/12/23 07:55 03/12/23 07:55 03/12/23 09:18 Temperature 98.0 F Pulse Rate 81 81 78 Respiratory Rate 18 18 18 Blood Pressure 142/55 H Pulse Oximetry 92 92 Oxygen Delivery Room Air Oxygen Flow Rate 03/12/23 09:00 03/12/23 10:48 03/12/23 13:18 Temperature 98.4 F Pulse Rate 95 Respiratory Rate 18 Blood Pressure 154/64 H Pulse Oximetry 92 Oxygen Delivery Room Air Room Air Oxygen Flow Rate Intake/Output Intake/Output: Intake & Output 03/09/23 03/10/23 03/11/23 03/12/23 23:59 23:59 23:59 23:59 Intake Total 1600 / 1600 4090 / 4090 2620 / 2620 1420 / 1420 Output Total 400 / 400 350 / 350 790 / -210.0 650 / 650 Balance 1200 / 1200 3740 / 3740 1830 / 2830.0 770 / 770 Meds/Results Medications: Active Medications Generic Name Dose Route Start Last Admin Trade Name Freq PRN Reason Stop Dose Admin Acetaminophen 650 mg 03/11/23 15:33 Acetaminophen 325 Mg Tablet PO Q6H PRN Pain Rated 1-3 Hydrocodone Bitart/Acetaminophen 1 tab 03/10/23 13:10 03/11/23 01:38 Hydrocodone/Acetaminophen (*Crx) 5-325 Mg Tablet PO 1 tab Q4H PRN Administration pain 4-6 Hydrocodone Bitart/Acetaminophen 1 tab 03/11/23 15:33 Hydrocodone/Acetaminophen (*Crx) 7.5-325 Mg Tablet PO Q3H PRN Pain Rated 4-6 Aspirin 81 mg 03/09/23 21:00 03/11/23 20:59 Aspirin 81 Mg Enteric Tablet PO 04/09/23 20:59 81 mg HS [id number]
[2023-03-12] MEDS: HYDROcodone/acetaminophen (*CRX) 7.5-325 MG TABLET 1 TAB PO ×2 (15:14→19:06)
[2023-03-12 17:24] LABS: Vancomycin Trough 7.1 ug/mL (10.0-20.0)
[2023-03-12] MEDS: ASPIRIN 81 MG ENTERIC TABLET PO (20:33)
[2023-03-12] MEDS: MONTELUKAST SODIUM 10 MG TABLET PO (20:33)
[2023-03-12] MEDS: VANCOMYCIN 1,250 MG/NS 250 ML 1,250 MG/250 ML BAG 125 MG IVPB (22:20)
[2023-03-13] MEDS: HYDROcodone/acetaminophen (*CRX) 7.5-325 MG TABLET 1 TAB PO ×4 (01:57→20:10)
[2023-03-13 05:18] VITALS: BP 143/62; PULSE 81; RESP 16; TEMP 36.4; O2SAT 93
[2023-03-13 07:07] LABS: Alanine Aminotransferase 19 U/L (6-35); Albumin Level 2.8 g/dL (3.5-5.1); Alkaline Phosphatase 138 U/L (38-126); Anion Gap 6 mmol/L (8-16); Aspartate Amino Transferase 26 U/L (14-36); Bilirubin,Total 0.6 mg/dL (0.2-1.3); Blood Urea Nitrogen 19 mg/dL (7-17); Carbon Dioxide 28 mmol/L (22-30); Chloride 104 mmol/L (98-107); Estimated CRCL calculation 41 ml/min; Estimated Glomerular Filt Rate 60; Glucose 108 mg/dL (65-110); Magnesium 2.3 mg/dL (1.6-2.3); Potassium 3.7 mmol/L (3.4-5.0); Sodium 138 mmol/L (137-145)
[2023-03-13 07:13] LABS: Hematocrit 29.5 % (37.0-47.0); Hemoglobin 9.3 g/dL (12.0-15.0); Mean Corpuscular HGB Conc 31.5 g/dl (32-36); Mean Corpuscular Hemoglobin 27.6 pg (26-34); Mean Corpuscular Volume 87.5 fl (80-100); Mean Platelet Volume 9.5 fl (7.4-10.4); Platelet Count Result 490 k/mm3 (150-375); Red Blood Count 3.37 M/mm3 (4.2-5.4); Red Cell Distribution Width 15.3 % (11.5-14.5)
[2023-03-13] MEDS: FLUTICASONE/SALMETEROL 230-21 MCG INHALER 1 PUFF 2 PUFF INHALATION ×2 (07:47→20:03)
[2023-03-13 07:49] VITALS: PULSE 79; RESP 18
[2023-03-13 07:50] VITALS: PULSE 79; O2SAT 92
[2023-03-13] MEDS: oxyCODONE HCL (*CRX) 5 MG TAB IR PO ×2 (09:14→17:24)
[2023-03-13] MEDS: HEPARIN SODIUM 5,000 UNITS/ML VIAL 5000 UNITS SUB-Q ×2 (09:15→20:10)
[2023-03-13] MEDS: polyethylene glycoL 3350 17 GM POWD.PACK PO (09:15)
[2023-03-13] MEDS: hydroCHLOROthiazide 12.5 MG CAPSULE PO (09:16)
[2023-03-13] MEDS: PANTOPRAZOLE 40 MG TABLET PO (09:16)
[2023-03-13] MEDS: CITALOPRAM HYDROBROMIDE 20 MG TABLET PO (09:16)
[2023-03-13] MEDS: FAMOTIDINE 20 MG TABLET PO ×2 (09:16→20:10)
[2023-03-13] MEDS: SENNA/DOCUSATE SODIUM TABLET 2 TAB PO ×2 (09:16→17:24)
--- NOTE | 2023-03-13 09:30 | P.PNIM_ITS ---
Progress Note: A&P Assessment and Plan (1) Bacteremia: Code(s): R78.81 - Bacteremia Status: Acute Assessment and Plan: * Blood cultures grew gram positive cocci, Staphylococcus aureus, MSSA * Currently on vanc, DC'd cefazolin * Awaiting sensitivities * Will most likely need IV antibiotics * Repeat cultures NGTD * Wound culture is Staph aureus, MSSA * Will adjust therapy when appropriate (2) Septic arthritis of knee, right: Qualifiers: Septic arthritis organism: due to unspecified organism Qualified Code(s): M00.9 - Pyogenic arthritis, unspecified Code(s): M00.9 - Pyogenic arthritis, unspecified Status: Acute Assessment and Plan: * POD2 * Presented with worsening pain, swelling and immobility * Xray indicates worsening effusion with possible cellulitis * Joint aspiration in the ED * Gram stain indicates gram positive cocci * Blood cultures grew staph aureus * Await culture staph aureus * Continue vanco for now * pain medications on board * Ortho consulted * Trend pain * Trend symptoms * Joint washout 03/11/23 (3) Chronic kidney disease: Qualifiers: Chronic kidney disease stage: stage 3 (moderate) Chronic kidney disease stage 3 subtype: stage 3b (GFR 30-44) Qualified Code(s): N18.32 - Chronic kidney disease, stage 3b Code(s): N18.9 - Chronic kidney disease, unspecified Status: Acute Assessment and Plan: * Current BUN/Cr 19/0.90 * Stage 3 * Baseline creatinine appears to be 0.8-1.10 * Stable at this time * Avoid nephrotoxic medications * trend labs * Adjust therapy as indicated (4) HTN (hypertension): Qualifiers: Hypertension type: primary hypertension Qualified Code(s): I10 - Essential (primary) hypertension Code(s): I10 - Essential (primary) hypertension Status: Chronic Assessment and Plan: * BP is stable at 141/59 * Continue home medications * Trend BP * adjust therapy as indicated Time Spent With Patient Time: 45 minutes Time with patient: Greater than 35 minutes Subjective Date/time seen: 03/13/23929 Interval history: 03/13/23929 She is doing better today. She is still having a lot of pain. Her knee still very swollen. She currently denies any chest pain, shortness a breath, nausea, vomiting, diarrhea constipation. WBCs her trending up at 20,000. 03/12/23 0945 patient was currently sit in the chair. She stated that her pain was better than it has been. Her daughter was also present stated that she does look a lot better than she did yesterday. She is still unable to move her knee. She does have a drain in place which is not really draining anything at this time. Wound culture did grow Staph aureus. Currently on vancomycin at this time. 03/11/23 1000 patient really did have any changes today. She is still a lot of pain claiming that her pain is a 10/10. Her knee is still swollen. She is awaiting to go down for a washout. Daughter is present. Blood cultures did come back positive with Staph aureus. Still waiting sensitivities. Currently denies any chest pain, shortness a breath, nausea, vomiting, diarrhea or constipation. 03/10/23 1145 She is in a lot of pain. She is not really trying to talk to me at this time. Her daughter was present and she was stating that she was not getting any relief with the Dilaudid and the oral medicatio
--- NOTE | 2023-03-13 09:30 | PM.IMPN ---
Progress Note: A&P Assessment and Plan (1) Bacteremia: Code(s): R78.81 - Bacteremia Status: Acute Assessment and Plan: Blood cultures grew gram positive cocci, Staphylococcus aureus, MSSA Currently on vanc, DC'd cefazolin Awaiting sensitivities Will most likely need IV antibiotics Repeat cultures NGTD Wound culture is Staph aureus, MSSA Will adjust therapy when appropriate (2) Septic arthritis of knee, right: Qualifiers: Septic arthritis organism: due to unspecified organism Qualified Code(s): M00.9 - Pyogenic arthritis, unspecified Code(s): M00.9 - Pyogenic arthritis, unspecified Status: Acute Assessment and Plan: POD2 Presented with worsening pain, swelling and immobility Xray indicates worsening effusion with possible cellulitis Joint aspiration in the ED Gram stain indicates gram positive cocci Blood cultures grew staph aureus Await culture staph aureus Continue vanco for now pain medications on board Ortho consulted Trend pain Trend symptoms Joint washout 03/11/23 (3) Chronic kidney disease: Qualifiers: Chronic kidney disease stage: stage 3 (moderate) Chronic kidney disease stage 3 subtype: stage 3b (GFR 30-44) Qualified Code(s): N18.32 - Chronic kidney disease, stage 3b Code(s): N18.9 - Chronic kidney disease, unspecified Status: Acute Assessment and Plan: Current BUN/Cr 19/0.90 Stage 3 Baseline creatinine appears to be 0.8-1.10 Stable at this time Avoid nephrotoxic medications trend labs Adjust therapy as indicated (4) HTN (hypertension): Qualifiers: Hypertension type: primary hypertension Qualified Code(s): I10 - Essential (primary) hypertension Code(s): I10 - Essential (primary) hypertension Status: Chronic Assessment and Plan: BP is stable at 141/59 Continue home medications Trend BP adjust therapy as indicated Time Spent With Patient Time: 45 minutes Time with patient: Greater than 35 minutes Subjective Date/time seen: 03/13/23929 Interval history: 03/13/23929 She is doing better today. She is still having a lot of pain. Her knee still very swollen. She currently denies any chest pain, shortness a breath, nausea, vomiting, diarrhea constipation. WBCs her trending up at 20,000. 03/12/23944 patient was currently sit in the chair. She stated that her pain was better than it has been. Her daughter was also present stated that she does look a lot better than she did yesterday. She is still unable to move her knee. She does have a drain in place which is not really draining anything at this time. Wound culture did grow Staph aureus. Currently on vancomycin at this time. 03/11/23 1000 patient really did have any changes today. She is still a lot of pain claiming that her pain is a 10/10. Her knee is still swollen. She is awaiting to go down for a washout. Daughter is present. Blood cultures did come back positive with Staph aureus. Still waiting sensitivities. Currently denies any chest pain, shortness a breath, nausea, vomiting, diarrhea or constipation. 03/10/23 1145 She is in a lot of pain. She is not really trying to talk to me at this time. Her daughter was present and she was stating that she was not getting any relief with the Dilaudid and the oral medications. She is also requesting a urinary catheter for further comfort. She denies any further chest pain, shortness of breath, nausea, vomiting, diarrhea or constipation. 03/09/23? 23:20 83-year-old female with a past medical history of essential hypertension, GERD, asthma, osteoarthritis and chronic gait instability who presented to the ER with right knee pain.? The patient reports that she came to the ER on the due to knee pain and was discharged home with naproxen and [place].? Or red despite these medicat
[2023-03-13 09:44] LABS: Band Neutrophils Percent 4 % (0-6); Eosinophils Percent Manual 1 % (0-4); Metamyelocytes Percent 6 %; Monocytes Percent Manual 5 % (3-9); Neutrophils Percent Manual 73 % (46-73); Total Cells Counted 100
[2023-03-13 09:45] LABS: Anisocytosis 1+ (NORMAL); Platelet Estimate Increased (Adequate); Schistocytes None Seen (NORMAL)
[2023-03-13] MEDS: VANCOMYCIN 1,250 MG/NS 250 ML 1,250 MG/250 ML BAG 125 MG IVPB (12:41)
[2023-03-13 14:38] VITALS: BP 141/59; PULSE 75; RESP 16; TEMP 37.1; O2SAT 95
[2023-03-13 20:07] VITALS: O2SAT 93
[2023-03-13 20:08] VITALS: BP 165/69; PULSE 87; RESP 18; TEMP 37.3; O2SAT 93
[2023-03-13] MEDS: MONTELUKAST SODIUM 10 MG TABLET PO (20:10)
[2023-03-13] MEDS: ASPIRIN 81 MG ENTERIC TABLET PO (20:10)
[2023-03-13 20:14] LABS: Glucose Synovial Fluid <10 mg/dL
[2023-03-14 04:55] LABS: Basophils Absolute Auto 0.1 K/mm3 (0.0-0.1); Basophils Percent Auto 0.3 % (0.2-1.2); Eosinophils Absolute Auto 0.2 K/mm3 (0-0.3); Hematocrit 28.6 % (37.0-47.0); Hemoglobin 9.2 g/dL (12.0-15.0); Immature Granulocyte Absolute 5.17 K/mm3 (0.00-0.031); Immature Granulocyte Percent A 25.9 % (0-0.5); Lymphocytes Absolute Auto 1.93 K/mm3 (0.9-3.2); Lymphocytes Percent Auto 9.7 % (18.3-44.2); Mean Corpuscular HGB Conc 32.2 g/dl (32-36); Mean Corpuscular Hemoglobin 27.9 pg (26-34); Mean Corpuscular Volume 86.7 fl (80-100); Mean Platelet Volume 9.2 fl (7.4-10.4); Monocytes Absolute Auto 1.6 K/mm3 (0.1-0.6); Monocytes Percent Auto 8.2 % (2.6-8.5); Neutrophils Percent Auto 54.9 % (45.5-73.1); Nucleated Red Blood Cells Perc 0.1 % (0.0-0.2); Platelet Count Result 442 k/mm3 (150-375); Red Cell Distribution Width 15.3 % (11.5-14.5)
[2023-03-14 05:04] LABS: Alanine Aminotransferase 14 U/L (6-35); Albumin Level 2.7 g/dL (3.5-5.1); Alkaline Phosphatase 123 U/L (38-126); Anion Gap 3 mmol/L (8-16); Aspartate Amino Transferase 25 U/L (14-36); Bilirubin,Total 0.6 mg/dL (0.2-1.3); Blood Urea Nitrogen 16 mg/dL (7-17); Calcium 8.2 mg/dL (8.4-10.2); Carbon Dioxide 32 mmol/L (22-30); Chloride 100 mmol/L (98-107); Estimated CRCL calculation 46 ml/min; Estimated Glomerular Filt Rate > 60; Glucose 103 mg/dL (65-110); Magnesium 2.1 mg/dL (1.6-2.3); Potassium 3.5 mmol/L (3.4-5.0); Sodium 135 mmol/L (137-145)
[2023-03-14 06:00] VITALS: BP 156/68; PULSE 78; RESP 16; TEMP 37.1; O2SAT 93
[2023-03-14] MEDS: VANCOMYCIN 1,250 MG/NS 250 ML 1,250 MG/250 ML BAG 125 MG IVPB (06:15)
[2023-03-14] MEDS: oxyCODONE HCL (*CRX) 5 MG TAB IR PO (06:15)
[2023-03-14] MEDS: FLUTICASONE/SALMETEROL 230-21 MCG INHALER 1 PUFF 2 PUFF INHALATION ×2 (07:30→20:40)
[2023-03-14 07:32] VITALS: O2SAT 91
[2023-03-14] MEDS: FAMOTIDINE 20 MG TABLET PO ×2 (08:05→20:42)
[2023-03-14] MEDS: hydroCHLOROthiazide 12.5 MG CAPSULE PO (08:05)
[2023-03-14] MEDS: CITALOPRAM HYDROBROMIDE 20 MG TABLET PO (08:05)
[2023-03-14] MEDS: PANTOPRAZOLE 40 MG TABLET PO (08:05)
[2023-03-14] MEDS: SENNA/DOCUSATE SODIUM TABLET 2 TAB PO (08:05)
[2023-03-14] MEDS: HEPARIN SODIUM 5,000 UNITS/ML VIAL 5000 UNITS SUB-Q ×2 (08:05→20:43)
[2023-03-14] MEDS: polyethylene glycoL 3350 17 GM POWD.PACK PO (08:06)
[2023-03-14 10:13] LABS: CRP 18.6 mg/dL (<1.0)
[2023-03-14 10:17] LABS: Procalcitonin 0.2 ng/mL
[2023-03-14] MEDS: ONDANSETRON INJ 4 MG/2 ML VIAL IV PUSH (10:44)
--- NOTE | 2023-03-14 11:45 | P.PNIM_ITS ---
Progress Note: A&P Assessment and Plan (1) Bacteremia: Code(s): R78.81 - Bacteremia Status: Acute Assessment and Plan: * Blood cultures grew gram positive cocci, Staphylococcus aureus, MSSA * Currently on vanc, DC'd cefazolin * Will most likely need IV antibiotics, family prefers oral if possible, could see about levaquin * Repeat cultures NGTD * Wound culture is Staph aureus, MSSA * Will adjust therapy when appropriate (2) Septic arthritis of knee, right: Qualifiers: Septic arthritis organism: due to unspecified organism Qualified Code(s): M00.9 - Pyogenic arthritis, unspecified Code(s): M00.9 - Pyogenic arthritis, unspecified Status: Acute Assessment and Plan: * POD2 * Presented with worsening pain, swelling and immobility * Xray indicates worsening effusion with possible cellulitis * Joint aspiration in the ED * Gram stain indicates gram positive cocci * Blood cultures grew staph aureus, MSSA * Await culture staph aureus, MSSA * Continue vanco, await trough results, and adjust antibiotics accordingly * pain medications on board * Ortho consulted * Trend pain * Trend symptoms * Joint washout 03/11/23 (3) Chronic kidney disease: Qualifiers: Chronic kidney disease stage: stage 3 (moderate) Chronic kidney disease stage 3 subtype: stage 3b (GFR 30-44) Qualified Code(s): N18.32 - Chronic kidney disease, stage 3b Code(s): N18.9 - Chronic kidney disease, unspecified Status: Acute Assessment and Plan: * Current BUN/Cr 16/0.80 * Stage 3 * Baseline creatinine appears to be 0.8-1.10 * Stable at this time * Avoid nephrotoxic medications * trend labs * Adjust therapy as indicated * Seems to be back to baseline (4) HTN (hypertension): Qualifiers: Hypertension type: primary hypertension Qualified Code(s): I10 - Essential (primary) hypertension Code(s): I10 - Essential (primary) hypertension Status: Chronic Assessment and Plan: * BP is stable at 156/68 * Continue home medications * Trend BP * adjust therapy as indicated (5) Leukocytosis: Qualifiers: Leukocytosis type: unspecified Qualified Code(s): D72.829 - Elevated white blood cell count, unspecified Code(s): D72.829 - Elevated white blood cell count, unspecified Status: Acute Assessment and Plan: * WBC elevated at 20.0 today and has been trending up daily * Currently on vanco, * Current source of infection appears to be bacteremia and septic joint * Consider adding another agent for better control * Trend labs Plan * Nausea add onetime Reglan, and scopolamine patch * Pain: current regimen is not working, add Toradol which she reported has given her the most pain relief * BM: added bisacodyl PRN Time Spent With Patient Time: 56 minutes Time with patient: Greater than 35 minutes Subjective Date/time seen: 03/14/23 1145 Interval history: 03/14/23 114 Patient seems to be doing okay today. She does complain of nausea and pain. She also stated that she had pretty rough night as her leg bent up. She stated that her leg is throbbing at this time. She is very nauseous. It is noted that she has not had any bowel movements. She denies any chest pain or shortness of breath. 03/13/23 0930 She is doing better today. She is still
--- NOTE | 2023-03-14 11:45 | PM.IMPN ---
Progress Note: A&P Assessment and Plan (1) Bacteremia: Code(s): R78.81 - Bacteremia Status: Acute Assessment and Plan: Blood cultures grew gram positive cocci, Staphylococcus aureus, MSSA Currently on vanc, DC'd cefazolin Will most likely need IV antibiotics, family prefers oral if possible, could see about levaquin Repeat cultures NGTD Wound culture is Staph aureus, MSSA Will adjust therapy when appropriate (2) Septic arthritis of knee, right: Qualifiers: Septic arthritis organism: due to unspecified organism Qualified Code(s): M00.9 - Pyogenic arthritis, unspecified Code(s): M00.9 - Pyogenic arthritis, unspecified Status: Acute Assessment and Plan: POD2 Presented with worsening pain, swelling and immobility Xray indicates worsening effusion with possible cellulitis Joint aspiration in the ED Gram stain indicates gram positive cocci Blood cultures grew staph aureus, MSSA Await culture staph aureus, MSSA Continue vanco, await trough results, and adjust antibiotics accordingly pain medications on board Ortho consulted Trend pain Trend symptoms Joint washout 03/11/23 (3) Chronic kidney disease: Qualifiers: Chronic kidney disease stage: stage 3 (moderate) Chronic kidney disease stage 3 subtype: stage 3b (GFR 30-44) Qualified Code(s): N18.32 - Chronic kidney disease, stage 3b Code(s): N18.9 - Chronic kidney disease, unspecified Status: Acute Assessment and Plan: Current BUN/Cr 16/0.80 Stage 3 Baseline creatinine appears to be 0.8-1.10 Stable at this time Avoid nephrotoxic medications trend labs Adjust therapy as indicated Seems to be back to baseline (4) HTN (hypertension): Qualifiers: Hypertension type: primary hypertension Qualified Code(s): I10 - Essential (primary) hypertension Code(s): I10 - Essential (primary) hypertension Status: Chronic Assessment and Plan: BP is stable at 156/68 Continue home medications Trend BP adjust therapy as indicated (5) Leukocytosis: Qualifiers: Leukocytosis type: unspecified Qualified Code(s): D72.829 - Elevated white blood cell count, unspecified Code(s): D72.829 - Elevated white blood cell count, unspecified Status: Acute Assessment and Plan: WBC elevated at 20.0 today and has been trending up daily Currently on vanco, Current source of infection appears to be bacteremia and septic joint Consider adding another agent for better control Trend labs Plan Nausea add onetime Reglan, and scopolamine patch Pain: current regimen is not working, add Toradol which she reported has given her the most pain relief BM: added bisacodyl PRN Time Spent With Patient Time: 56 minutes Time with patient: Greater than 35 minutes Subjective Date/time seen: 03/14/23 1145 Interval history: 03/14/23 114 Patient seems to be doing okay today. She does complain of nausea and pain. She also stated that she had pretty rough night as her leg bent up. She stated that her leg is throbbing at this time. She is very nauseous. It is noted that she has not had any bowel movements. She denies any chest pain or shortness of breath. 03/13/23 0930 She is doing better today. She is still having a lot of pain. Her knee still very swollen. She currently denies any chest pain, shortness a breath, nausea, vomiting, diarrhea constipation. WBCs her trending up at 20,000. 03/12/23 0945 patient was currently sit in the chair. She stated that her pain was better than it has been. Her daughter was also present stated that she does look a lot better than she did yesterday. She is still unable to move her knee. She does have a drain in place which is not really draining anything at this time. Wound culture did grow Staph aureus. Currently on vancomy
[2023-03-14] MEDS: KETOROLAC 15 MG/ML VIAL (*BKC) IV PUSH (13:35)
[2023-03-14] MEDS: METOCLOPRAMIDE HCL INJ 10 MG/2 ML VIAL IV PUSH (13:35)
[2023-03-14] MEDS: SCOPOLAMINE 1.5 MG PATCH TRANSDERM (13:35)
[2023-03-14] MEDS: FUROSEMIDE INJ 40 MG/4 ML VIAL IV PUSH (13:37)
[2023-03-14 14:43] VITALS: BP 150/58; PULSE 78; RESP 18; TEMP 36.9; O2SAT 92
[2023-03-14] MEDS: HYDROcodone/acetaminophen (*CRX) 7.5-325 MG TABLET 1 TAB PO (17:54)
--- NOTE | 2023-03-14 19:36 | PC.NURSE ---
Nurse responded to bed alarm in room. Patient's daughters were getting her out of the bed to use the bedside commode. The daughters said that they are both nurses, one is an ER nurse, the other is a Surgical nurse. I told them that we would like to get the patient up when she's getting out of be so that we can use all the safety protocols to ensure her safety. Daughter said that the patient wanted them to get her up and that she didn't want to use the proper safety equipment--gait belt and bernardino stedy. The daughter assisted her to bedside commode without gait belt or walker or bernardino stedy. She pivoted on her right leg (which is the septic knee). The daughters disregarded my attempts to help the patient in any way. A couple hours later, daughter called and requested a pure wick, I clarified with the warehouse order selector that we could use a purewick since she is able to get out of bed. He said that since the patient has orders out of bed as tolerated. So, the purewick was applied and within the hour, the bed alarm was going off again and the daughter took the purewick device off the patient and got her up to the bedside commode, the patient urinated on the floor. The tech explained that taking of the purewick and reapplying it creates a higher risk for infection for the patient and that she will need to use the call light next time she needs to use the restroom, that staff will assisting with toileting from now on.
[2023-03-14 20:42] VITALS: PULSE 71; O2SAT 94
[2023-03-14] MEDS: MONTELUKAST SODIUM 10 MG TABLET PO (20:42)
[2023-03-14] MEDS: ASPIRIN 81 MG ENTERIC TABLET PO (20:42)
[2023-03-14 20:57] VITALS: BP 135/54; PULSE 71; RESP 17; TEMP 37; O2SAT 93
[2023-03-15 01:08] LABS: Vancomycin Trough 12.5 ug/mL (10.0-20.0)
[2023-03-15] MEDS: VANCOMYCIN 1,250 MG/NS 250 ML 1,250 MG/250 ML BAG 166.67 MG IVPB (01:51)
[2023-03-15] MEDS: HYDROcodone/acetaminophen (*CRX) 7.5-325 MG TABLET 1 TAB PO ×3 (03:30→17:34)
[2023-03-15 05:18] VITALS: BP 144/50; PULSE 70; RESP 18; TEMP 36.7; O2SAT 94
[2023-03-15 05:37] LABS: Basophils Absolute Auto 0.1 K/mm3 (0.0-0.1); Basophils Percent Auto 0.3 % (0.2-1.2); Eosinophils Absolute Auto 0.1 K/mm3 (0-0.3); Eosinophils Percent Auto 0.6 % (0-4.4); Hematocrit 27.9 % (37.0-47.0); Immature Granulocyte Absolute 3.67 K/mm3 (0.00-0.031); Immature Granulocyte Percent A 17.9 % (0-0.5); Lymphocytes Absolute Auto 1.71 K/mm3 (0.9-3.2); Lymphocytes Percent Auto 8.4 % (18.3-44.2); Mean Corpuscular HGB Conc 32.3 g/dl (32-36); Mean Corpuscular Volume 86.6 fl (80-100); Mean Platelet Volume 9.2 fl (7.4-10.4); Monocytes Absolute Auto 1.8 K/mm3 (0.1-0.6); Monocytes Percent Auto 8.6 % (2.6-8.5); Neutrophils Absolute Auto 13.1 K/mm3 (1.3-6.7); Neutrophils Percent Auto 64.2 % (45.5-73.1); Platelet Count Result 432 k/mm3 (150-375); Red Blood Count 3.22 M/mm3 (4.2-5.4); White Blood Count 20.5 K/mm3 (4.5-10.0)
[2023-03-15 06:03] LABS: Alanine Aminotransferase 16 U/L (6-35); Albumin Level 2.9 g/dL (3.5-5.1); Alkaline Phosphatase 115 U/L (38-126); Anion Gap 3 mmol/L (8-16); Aspartate Amino Transferase 26 U/L (14-36); Bilirubin,Total 0.7 mg/dL (0.2-1.3); Blood Urea Nitrogen 14 mg/dL (7-17); Calcium 7.8 mg/dL (8.4-10.2); Carbon Dioxide 35 mmol/L (22-30); Chloride 94 mmol/L (98-107); Estimated CRCL calculation 46 ml/min; Estimated Glomerular Filt Rate > 60; Glucose 114 mg/dL (65-110); Magnesium 1.9 mg/dL (1.6-2.3); Potassium 3.3 mmol/L (3.4-5.0); Sodium 132 mmol/L (137-145)
[2023-03-15 07:35] VITALS: PULSE 70; RESP 18; O2SAT 94
[2023-03-15] MEDS: SENNA/DOCUSATE SODIUM TABLET 2 TAB PO (07:54)
[2023-03-15] MEDS: hydroCHLOROthiazide 12.5 MG CAPSULE PO (07:55)
[2023-03-15] MEDS: PANTOPRAZOLE 40 MG TABLET PO (07:55)
[2023-03-15] MEDS: BISACODYL 5 MG TABLET EC 10 MG PO (07:55)
[2023-03-15] MEDS: FAMOTIDINE 20 MG TABLET PO ×2 (07:55→21:06)
[2023-03-15] MEDS: HEPARIN SODIUM 5,000 UNITS/ML VIAL 5000 UNITS SUB-Q ×2 (07:55→21:08)
[2023-03-15] MEDS: polyethylene glycoL 3350 17 GM POWD.PACK PO (08:05)
[2023-03-15] MEDS: CITALOPRAM HYDROBROMIDE 20 MG TABLET PO (08:05)
--- NOTE | 2023-03-15 09:15 | PM.IMPN ---
Progress Note: A&P Assessment and Plan (1) Bacteremia: Code(s): R78.81 - Bacteremia Status: Acute Assessment and Plan: Blood cultures grew gram positive cocci, Staphylococcus aureus, MSSA Stop vanc and start levaquin and ancef Will most likely need IV antibiotics, family prefers oral if possible, could see about Levaquin Repeat cultures Grew staph aureus in one bottle Wound culture is Staph aureus, MSSA Will adjust therapy when appropriate (2) Septic arthritis of knee, right: Qualifiers: Septic arthritis organism: due to unspecified organism Qualified Code(s): M00.9 - Pyogenic arthritis, unspecified Code(s): M00.9 - Pyogenic arthritis, unspecified Status: Acute Assessment and Plan: POD 3 Presented with worsening pain, swelling and immobility Xray indicates worsening effusion with possible cellulitis Joint aspiration in the ED Gram stain indicates gram positive cocci Blood cultures grew staph aureus, MSSA Stop vanc and start levaquin and ancef pain medications on board Ortho consulted Trend pain Trend symptoms Joint washout 03/11/23 (3) Leukocytosis: Qualifiers: Leukocytosis type: unspecified Qualified Code(s): D72.829 - Elevated white blood cell count, unspecified Code(s): D72.829 - Elevated white blood cell count, unspecified Status: Acute Assessment and Plan: WBC elevated at 20.5 today and has been trending up daily Currently on vanco, trough is 12.5, seems that she might of failed vanc at this point Stop vanc and start levaquin and ancef Current source of infection appears to be bacteremia and septic joint Consider adding another agent for better control Trend labs (4) Acute metabolic encephalopathy: Code(s): G93.41 - Metabolic encephalopathy Status: Acute Assessment and Plan: Seems to be confused at the moment Head ct 1.3cm right orbital mass and 1.4cm right parotid mass Could be related to pain medications, possibly infection Trend mental status Adjust therapy as indicated (5) Chronic kidney disease: Qualifiers: Chronic kidney disease stage: stage 3 (moderate) Chronic kidney disease stage 3 subtype: stage 3b (GFR 30-44) Qualified Code(s): N18.32 - Chronic kidney disease, stage 3b Code(s): N18.9 - Chronic kidney disease, unspecified Status: Chronic Assessment and Plan: Current BUN/Cr 14/0.80 Stage 3 Baseline creatinine appears to be 0.8-1.10 Stable at this time Avoid nephrotoxic medications trend labs Adjust therapy as indicated Seems to be back to baseline (6) HTN (hypertension): Qualifiers: Hypertension type: primary hypertension Qualified Code(s): I10 - Essential (primary) hypertension Code(s): I10 - Essential (primary) hypertension Status: Chronic Assessment and Plan: BP is stable at 144/50 Continue home medications Trend BP adjust therapy as indicated (7) Orbital mass: Code(s): 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 Status: Acute Assessment and Plan: Incidental finding Noted on the CT, 1.3cm right sided does not appear to be symptomatic Consult oncology for further recommendations (8) Parotid mass: Code(s): 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
--- NOTE | 2023-03-15 09:15 | P.PNIM_ITS ---
Progress Note: A&P Assessment and Plan (1) Bacteremia: Code(s): R78.81 - Bacteremia Status: Acute Assessment and Plan: * Blood cultures grew gram positive cocci, Staphylococcus aureus, MSSA * Stop vanc and start levaquin and ancef * Will most likely need IV antibiotics, family prefers oral if possible, could see about Levaquin * Repeat cultures Grew staph aureus in one bottle * Wound culture is Staph aureus, MSSA * Will adjust therapy when appropriate (2) Septic arthritis of knee, right: Qualifiers: Septic arthritis organism: due to unspecified organism Qualified Code(s): M00.9 - Pyogenic arthritis, unspecified Code(s): M00.9 - Pyogenic arthritis, unspecified Status: Acute Assessment and Plan: * POD 3 * Presented with worsening pain, swelling and immobility * Xray indicates worsening effusion with possible cellulitis * Joint aspiration in the ED * Gram stain indicates gram positive cocci * Blood cultures grew staph aureus, MSSA * Stop vanc and start levaquin and ancef * pain medications on board * Ortho consulted * Trend pain * Trend symptoms * Joint washout 03/11/23 (3) Leukocytosis: Qualifiers: Leukocytosis type: unspecified Qualified Code(s): D72.829 - Elevated white blood cell count, unspecified Code(s): D72.829 - Elevated white blood cell count, unspecified Status: Acute Assessment and Plan: * WBC elevated at 20.5 today and has been trending up daily * Currently on vanco, trough is 12.5, seems that she might of failed vanc at this point * Stop vanc and start levaquin and ancef * Current source of infection appears to be bacteremia and septic joint * Consider adding another agent for better control * Trend labs (4) Acute metabolic encephalopathy: Code(s): G93.41 - Metabolic encephalopathy Status: Acute Assessment and Plan: * Seems to be confused at the moment * Head ct 1.3cm right orbital mass and 1.4cm right parotid mass * Could be related to pain medications, possibly infection * Trend mental status * Adjust therapy as indicated (5) Chronic kidney disease: Qualifiers: Chronic kidney disease stage: stage 3 (moderate) Chronic kidney disease stage 3 subtype: stage 3b (GFR 30-44) Qualified Code(s): N18.32 - Chronic kidney disease, stage 3b Code(s): N18.9 - Chronic kidney disease, unspecified Status: Chronic Assessment and Plan: * Current BUN/Cr 14/0.80 * Stage 3 * Baseline creatinine appears to be 0.8-1.10 * Stable at this time * Avoid nephrotoxic medications * trend labs * Adjust therapy as indicated * Seems to be back to baseline (6) HTN (hypertension): Qualifiers: Hypertension type: primary hypertension Qualified Code(s): I10 - Essential (primary) hypertension Code(s): I10 - Essential (primary) hypertension Status: Chronic Assessment and Plan: * BP is stable at 144/50 * Continue home medications * Trend BP * adjust therapy as indicated (7) Orbital mass: Code(s): 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
[2023-03-15] MEDS: FLUTICASONE/SALMETEROL 230-21 MCG INHALER 1 PUFF 2 PUFF INHALATION ×2 (10:57→21:23)
[2023-03-15] MEDS: KETOROLAC 15 MG/ML VIAL (*BKC) IV PUSH (11:35)
[2023-03-15] MEDS: ceFAZolin 2 GM/D5W 50 ML 2 GM/50 ML BAG IVPB ×2 (13:08→21:08)
[2023-03-15 14:13] VITALS: BP 153/58; PULSE 86; RESP 22; TEMP 36.3; O2SAT 98
--- NOTE | 2023-03-15 16:07 | PC.NURSE ---
PT having bouts of confusion, asking questions that dont make sense to situation, talking to her family who are not in room. Asking about where the baby is . On and off confusion is new and reported to [place] [facility] [employer] TECHNICIAN he ordered head CT, family took off her scopolamine patch. Will continue to monitor the patient. Called [facility] to ensure someone is following up with PT when Dr. Padron is out of town
--- NOTE | 2023-03-15 18:21 | PDONCCN ---
[facility] - Date of Consult Date/Time: 03/15/23 18:21 Requesting Physician: Olive Her MD Primary Care Provider: PHYSICIAN NOT ON STAFF - Consult Narrative Reason for consult: Leukocytosis, anemia and thrombocytosis Narrative: Jamia Palacios is a 83 year old female with history of GERD, hypertension and osteoarthritis came into the ER with right knee pain. She was recently discharged home on March 09 after being treated for right knee pain on naproxen and [place]. She came into the hospital with worsening of the right knee pain. She denies any fevers and chills. Denies any recent injury and trauma. Patient had right knee arthroscopy with washout done on March 11. She was diagnosed with septic arthritis and the synovial fluid grew Staphylococcus aureus. She was also found to have acute bacteremia with blood culture growing Gram-positive cocci. She was started on broad-spectrum antibiotic coverage. Labs showed elevated WBC count of 20,000 with mild anemia of hemoglobin 9.0 and elevated platelet count. C-reactive protein was also elevated at 18.6. She denies any bleeding and bruising. Denies any recent weight changes. Patient had CT scan head done due to confusion that showed 1.4 cm right parotid mass and 1.3 cm right orbital mass. Review of Systems - Review of Systems All systems reviewed & are unremarkable except as noted in [facility] and [facility] Medical History: Medical History (Last Updated 03/12/23 @ 15:04 by Prabhakar Padron MD) Asthma Depression GERD (gastroesophageal reflux disease) HTN (hypertension) Surgical History: Surgical History (Last Updated 03/12/23 @ 15:04 by Prabhakar Padron MD) H/O cataract extraction History of hysterectomy History of tonsillectomy S/P laparoscopic cholecystectomy 08/26/22 Septic arthritis of knee, right arthroscopic washout March 11, 2023 Family History: Family History (Last Reviewed 03/11/23 @ 12:43 by Jose Roberto Olguin MD) Mother Lung disease Son Acute myocardial infarction Son Involved in airplane accident - Social History Social History: Social History (Last Reviewed 03/11/23 @ 12:43 by Jose Roberto Olguin MD) Alcohol Use: Alcohol intake: never Substance Use: Substance use: never Substance use type: does not use Others: Spiritual care concerns: No Smoking Status: Smoking status: Never smoker Social Determinants of Health: Has the Lack of Transportation Kept You From Medical Appointments or From Getting Medications?: No Within the Past 12 Months, Were You Worried Whether Your Food Would Run Out Before You Got Money to Buy More?: Never True What is Your Housing Situation Today?: I Have Housing Are You Worried That in the Next 2 Months, You May Not Have Your Own Housing to Live In?: No Do You Have Trouble Paying Your Heating Or Electricity Bill?: No Do You Have Trouble Paying For Medicines?: No Are You Currently Unemployed and Looking for Work?: No Highest Level of Education Completed: Don't Know Do You Have Trouble With Childcare or the Care of a Family Member?: No Exam - Vital Signs Vital Signs - 24 hr 03/14/23 20:42 03/14/23 20:57 03/15/23 05:18 Temperature 37.0 C 36.7 C Pulse Rate 71 71 70 Respiratory Rate 17 18 Blood Pressure 135/54 L 144/50 H Pulse Oximetry 94 93 94 Oxygen Delivery Room Air Fraction of Inspired Oxygen 03/15/23 07:35 03/15/23 14:13 Temperature 36.3 C L Pulse Rate 70 86 Respiratory Rate 18 22 H Blood Pressure 153/58 H Pulse Oximetry 94 98 Oxygen Delivery Room Air Fraction of Inspired Oxygen 21 - Exam HEENT: EOMI, PERRLA, mucous membranes moist and pink Neck: No: JVD Lungs: clear to auscultation, normal air movement Heart: no murmurs, gallops, or rubs, regular rhythm, regular rate Abdomen: abdomen soft, non-distended, normal bowel sounds Extremities: normal pulses, edema, swelling Integumentary: no abnormalities Neurological
--- NOTE | 2023-03-15 19:46 | PM.PNORT ---
Progress Note: A&P Assessment and Plan (1) Septic arthritis of knee, right: Qualifiers: Septic arthritis organism: due to unspecified organism Qualified Code(s): M00.9 - Pyogenic arthritis, unspecified Code(s): M00.9 - Pyogenic arthritis, unspecified Status: Acute Plan Patient is an 83-year-old female who underwent arthroscopic irrigation and debridement right knee for septic arthritis on 03/11/2023. She was admitted on the . She had positive Staph aureus blood cultures from both the of the . The susceptibility test from the synovial fluid on the shows Staph aureus susceptible to oxacillin. A blood culture Staph aureus result did not have a specific susceptibility other than referring to the synovial fluid susceptibility. She was switched from vancomycin to Ancef 2 g q.8 hours today which would be the optimal antibiotic for her with the susceptibility. Her white count has remained elevated 20.5. There is concern for ongoing infection. An ultrasound of her knee was obtained today and demonstrates large suprapatellar effusion and large popliteal fossa fluid collection likely a popliteal cyst. On exam today I could not feel an obvious popliteal cyst so I cannot aspirate that cyst. We will ask Radiology to do this under fluoro and place a drain. The suprapatellar effusion did not feel large on exam. She cannot straighten her knee fully 0 ever. She has severe pain straightening it past about 15? and cannot tolerate not having a pillow underneath the knee. After discussion with patient and her daughter I recommended we try to aspirate the suprapatellar effusion and this was done using sterile technique removing 8 cc of bloody dark thick fluid. We did send this for aerobic and anaerobic culture as well as cell count with differential. Her previous x-rays were reviewed and demonstrates [id number] medial compartment osteoarthritis. It did not show any erosive changes. I would recommend the patient have a PICC line as I would recommend 4 weeks of IV antibiotics. Would wait until we have a negative blood culture. These can be done tomorrow. While patient has a drain in place will keep the knee immobilized it with immobilizer if drain placement a successful. Length of time the drains will be left in place will depend on their output. Had a long discussion patient's daughter was also a nurse about the prolonged period pain limited function that is likely to. She will not be able to live at home independently for probably 4-6 weeks. Subjective Subjective Date/Time Seen: 03/15/23 19:46 Objective Data Vital Signs Vital Signs: Vital Signs - 24 hr 03/14/23 20:42 03/14/23 20:57 03/15/23 05:18 Temperature 37.0 C 36.7 C Pulse Rate 71 71 70 Respiratory Rate 17 18 Blood Pressure 135/54 L 144/50 H Pulse Oximetry 94 93 94 Oxygen Delivery Room Air Fraction of Inspired Oxygen 03/15/23 07:35 03/15/23 14:13 Temperature 36.3 C L Pulse Rate 70 86 Respiratory Rate 18 22 H Blood Pressure 153/58 H Pulse Oximetry 94 98 Oxygen Delivery Room Air Fraction of Inspired Oxygen 21 Intake/Output Intake/Output: Intake & Output 03/12/23 03/13/23 03/14/23 03/15/23 23:59 23:59 23:59 23:59 Intake Total 3060 6597 504 1480 Output Total 1012 297 8661 1050 Balance 1760 1220 -680 570 Meds/Results Medications: Active Medications Generic Name Dose Route Start Last Admin Trade Name Freq PRN Reason Stop Dose Admin Acetaminophen 650 mg 03/11/23 15:33 Acetaminophen 325 Mg Tablet PO Q6H PRN Pain Rated 1-3 Hydrocodone Bitart/Acetaminophen 1 tab 03/11/23 15:33 03/15/23 17:34 Hydrocodone/Acetaminophen (*Crx) 7.5-325 Mg Tablet PO 1 tab Q3H PRN Administration Pain Rated 4-6 Aspirin 81 mg 03/09/23 21:00 03/14/23 20:42 Aspirin 81 Mg Enteric Tablet PO 04/09/23 20:59 81 mg HS GUILLERMO Administration Bisacodyl 10 mg 03/14/23 13:27 03/15/23 07:55 Bisac
[2023-03-15 20:04] LABS: Iron 23 ug/dL (37-170); Lactate Dehydrogenase 238 U/L (120-246)
[2023-03-15 20:13] LABS: Percent Iron Saturation 11 % (20-50)
[2023-03-15 21:06] VITALS: BP 151/61; PULSE 69; RESP 17; TEMP 36.7; O2SAT 95
[2023-03-15] MEDS: ASPIRIN 81 MG ENTERIC TABLET PO (21:06)
[2023-03-15] MEDS: MONTELUKAST SODIUM 10 MG TABLET PO (21:06)
[2023-03-15 21:11] LABS: Folic Acid 12.7 ng/mL (2.76->20)
[2023-03-15 21:15] LABS: Appearance Synovial Fluid Bloody (Clear); Color Synovial Fluid Red (Colorless); Source Synovial Fluid Synovial fluid
[2023-03-15 21:16] LABS: Nucleated Cell Synovial Fluid 68909 /uL (0-200)
[2023-03-15 21:41] LABS: Lymphocytes Synovial Fluid 6 %; Monocytes Synovial Fluid 2 %; Neutrophils Synovial Fluid 92 % (0-25)
--- NOTE | 2023-03-16 | ECHO_ITS ---
Patient Info Name: Jamia Palacios Age: 83 years : 1940 Gender: Female Ht: 63 in Wt: 180 lbs BSA: 1.94 m2 HR: 71 bpm BP: 153 / 59 mmHg Heart Rhythm: Sinus Rhythm Technical Quality: Fair Exam Date: 03/16/2023 3:58 PM Exam Location: [facility] Pulmonary Patient Status: Inpatient Admit Date: 03/09/2023 Staff Ordering Physician: Kris Cornejo Tattoo And Body Artist: Nicole Chaudhry RDCS Attending Provider: Olive Her MD Referring Physician: Clemente MONSON; Exam Type: CA echo doppler color flow Study Info Indications - infection Complete two-dimensional, color flow and Doppler transthoracic echocardiogram is performed. Summary 1. Complete two-dimensional, color flow and Doppler transthoracic echocardiogram is performed. 2. Left ventricular chamber dimension is normal. 3. Left ventricular systolic function is normal, estimated at 65-70%. 4. The left ventricular diastolic function is grade I diastolic dysfunction. 5. E/e' 18 is elevated. 6. Left atrial chamber dimension is moderately enlarged. 7. There is moderate aortic valve sclerosis. 8. There is mild aortic valve stenosis with a peak velocity of 255 cm/s, mean gradient of 10 mmHg, and aortic valve area of 1.4 cm2. 9. The mitral valve has moderately calcified annulus. 10. There is trace tricuspid valve regurgitation. 11. Mild pulmonary hypertension, estimated pulmonary arterial systolic pressure is 44 mmHg. 12. There is trace pulmonic regurgitation. 13. Dilated inferior vena cava with >50% collapse upon inspiration consistent with elevated right atrial pressure, 10 mmHg. Left Ventricle E/e' 18 is elevated. Left ventricular chamber dimension is normal. Left ventricular systolic function is normal, estimated at 65-70%. The left ventricular diastolic function is grade I diastolic dysfunction. Right Ventricle Right ventricular systolic function is normal and with normal TAPSE 2.4 cm. Right ventricular chamber dimension is normal. Left Atria Left atrial chamber dimension is moderately enlarged. Right Atria Right atrial chamber dimension is normal. Aortic Valve The aortic valve is trileaflet. There is moderate aortic valve sclerosis. There is mild aortic valve stenosis with a peak velocity of 255 cm/s, mean gradient of 10 mmHg, and aortic valve area of 1.4 cm2. There is no aortic valve regurgitation. No aortic valve vegetation visualized. Pulmonic Valve There is trace pulmonic regurgitation. No pulmonic valve vegetation visualized. Mitral Valve The mitral valve has moderately calcified annulus. There is no mitral valve stenosis. There is no mitral valve regurgitation. No mitral valve vegetation visualized. Tricuspid Valve There is trace tricuspid valve regurgitation. Mild pulmonary hypertension, estimated pulmonary arterial systolic pressure is 44 mmHg. No tricuspid valve vegetation visualized. Pericardium/Pleural There is no pericardial effusion. Inferior Vena Cava Dilated inferior vena cava with >50% collapse upon inspiration consistent with elevated right atrial pressure, 10 mmHg. Aorta The aortic root size at the sinus of Valsalva is normal. Left Ventricular Outflow Tract Name Value Normal LVOT 2D LVOT Diameter 2.0 cm LVOT Doppler
[2023-03-16] MEDS: HYDROcodone/acetaminophen (*CRX) 7.5-325 MG TABLET 1 TAB PO (01:38)
[2023-03-16] MEDS: ceFAZolin 2 GM/D5W 50 ML 2 GM/50 ML BAG IVPB ×3 (05:16→22:27)
[2023-03-16 05:21] VITALS: BP 153/59; PULSE 71; RESP 17; TEMP 36.9; O2SAT 94
[2023-03-16 05:38] LABS: Basophils Absolute Auto 0.2 K/mm3 (0.0-0.1); Basophils Percent Auto 0.9 % (0.2-1.2); Eosinophils Absolute Auto 0.1 K/mm3 (0-0.3); Eosinophils Percent Auto 0.4 % (0-4.4); Hematocrit 27.6 % (37.0-47.0); Hemoglobin 8.7 g/dL (12.0-15.0); Immature Granulocyte Absolute 2.28 K/mm3 (0.00-0.031); Immature Granulocyte Percent A 12.4 % (0-0.5); Lymphocytes Percent Auto 8.2 % (18.3-44.2); Mean Corpuscular HGB Conc 31.5 g/dl (32-36); Mean Corpuscular Hemoglobin 26.9 pg (26-34); Mean Corpuscular Volume 85.4 fl (80-100); Mean Platelet Volume 9.6 fl (7.4-10.4); Monocytes Absolute Auto 1.5 K/mm3 (0.1-0.6); Neutrophils Absolute Auto 12.8 K/mm3 (1.3-6.7); Neutrophils Percent Auto 70.1 % (45.5-73.1); Platelet Count Result 451 k/mm3 (150-375); Red Blood Count 3.23 M/mm3 (4.2-5.4); Red Cell Distribution Width 14.7 % (11.5-14.5); White Blood Count 18.3 K/mm3 (4.5-10.0)
[2023-03-16 06:05] LABS: Alanine Aminotransferase 16 U/L (6-35); Albumin Level 2.9 g/dL (3.5-5.1); Alkaline Phosphatase 112 U/L (38-126); Anion Gap 4 mmol/L (8-16); Aspartate Amino Transferase 29 U/L (14-36); Bilirubin,Total 0.7 mg/dL (0.2-1.3); Blood Urea Nitrogen 13 mg/dL (7-17); Carbon Dioxide 38 mmol/L (22-30); Chloride 91 mmol/L (98-107); Estimated CRCL calculation 46 ml/min; Estimated Glomerular Filt Rate > 60; Glucose 106 mg/dL (65-110); Sodium 133 mmol/L (137-145)
[2023-03-16 06:24] LABS: CRP 18.6 mg/dL (<1.0)
[2023-03-16] MEDS: FLUTICASONE/SALMETEROL 230-21 MCG INHALER 1 PUFF 2 PUFF INHALATION ×2 (08:18→20:05)
[2023-03-16 08:22] VITALS: O2SAT 96
[2023-03-16] MEDS: POTASSIUM CHLORIDE INJ 40 MEQ in SODIUM CHLORIDE 0.9% IV 500 ML 130 MEQ IVPB (08:51)
[2023-03-16] MEDS: PANTOPRAZOLE 40 MG TABLET PO (08:52)
[2023-03-16] MEDS: hydroCHLOROthiazide 12.5 MG CAPSULE PO (08:52)
[2023-03-16] MEDS: CITALOPRAM HYDROBROMIDE 20 MG TABLET PO (08:52)
[2023-03-16] MEDS: FAMOTIDINE 20 MG TABLET PO ×2 (08:53→20:26)
--- NOTE | 2023-03-16 09:22 | PCPTNOTE ---
Patient refused treatment this session due to patient wanting to rest. Patient reported she did not sleep good last night, and wanted to stay in bed and rest at this time.
--- NOTE | 2023-03-16 09:51 | PCNWS ---
Weekly nutritional screen. Patient is tolerating current diet with adequate intake. No weight loss reported. No nutritional needs at this time.
--- NOTE | 2023-03-16 10:35 | PM.PNORT ---
Progress Note: A&P Assessment and Plan (1) Septic arthritis of knee, right: Qualifiers: Septic arthritis organism: due to unspecified organism Qualified Code(s): M00.9 - Pyogenic arthritis, unspecified Code(s): M00.9 - Pyogenic arthritis, unspecified Status: Acute Assessment and Plan: post op day 5. After arthroscopic washout debridement right knee. C-reactive protein is unchanged from 2 days ago 18.6. This is 18 times the normal range. A blood culture was ordered for last night and if negative we can proceed with placement of a PICC line I spoke with the radiologist Dr. Blunt this morning. He reviewed the previous x-rays and felt there was suspicious irregularity seen in the trochlea thought this might represent significant erosive change worrisome for osteomyelitis and he has recommended obtaining an MRI scan of her right knee with and without gadolinium contrast. He recommended doing the MRI scan prior to the aspiration of the popliteal cyst because of the fact that the procedure itself will introduce gas bubbles into the popliteal cyst which could affect the interpretation. Following the MRI scan and his going to try to aspirate the popliteal cyst removed as much fluid as possible. If it is excessively loculated this may besomewhat unsuccessful. A drain will be left to decompress the popliteal cyst and we will do the same with the Supra patellar pouch. If there is osteomyelitis, we may need to consider open debridement of the knee potentially open debridement of cyst. Dr. Blunt is going to try to get the MRI done this morning if possible. Subjective Subjective Date/Time Seen: 03/16/23 10:35 Objective Data Vital Signs Vital Signs: Vital Signs - 24 hr 03/15/23 14:13 03/15/23 21:06 03/16/23 05:21 Temperature 36.3 C L 36.7 C 36.9 C Pulse Rate 86 69 71 Respiratory Rate 22 H 17 17 Blood Pressure 153/58 H 151/61 H 153/59 H Pulse Oximetry 98 95 94 Oxygen Delivery 03/16/23 08:22 Temperature Pulse Rate Respiratory Rate Blood Pressure Pulse Oximetry 96 Oxygen Delivery Room Air Intake/Output Intake/Output: Intake & Output 03/13/23 03/14/23 03/15/23 03/16/23 23:59 23:59 23:59 23:59 Intake Total 6725 600 8424 50 Output Total 550 1450 1050 400 Balance 1220 -680 870 -350 Meds/Results Medications: Active Medications Generic Name Dose Route Start Last Admin Trade Name Freq PRN Reason Stop Dose Admin Acetaminophen 650 mg 03/11/23 15:33 Acetaminophen 325 Mg Tablet PO Q6H PRN Pain Rated 1-3 Hydrocodone Bitart/Acetaminophen 1 tab 03/11/23 15:33 03/16/23 01:38 Hydrocodone/Acetaminophen (*Crx) 7.5-325 Mg Tablet PO 1 tab Q3H PRN Administration Pain Rated 4-6 Aspirin 81 mg 03/09/23 21:00 03/15/23 21:06 Aspirin 81 Mg Enteric Tablet PO 04/09/23 20:59 81 mg HS GUILLERMO Administration Bisacodyl 10 mg 03/14/23 13:27 03/15/23 07:55 Bisacodyl 5 Mg Tablet Ec PO 10 mg DAILY PRN Administration Constipation Calcium Carbonate 500 mg 03/10/23 09:00 03/16/23 08:52 Calcium/Vitamin D 500 Mg Tablet PO 500 mg QAM GUILLERMO Administration Citalopram Hydrobromide 20 mg 03/10/23 09:00 03/16/23 08:52 Citalopram Hydrobromide 20 Mg Tablet PO 20 mg DAILY GUILLERMO Administration Diphenhydramine HCl 25 mg 03/09/23 18:35 03/09/23 18:48 Diphenhydramine Hcl Cap 25 Mg Capsule PO 25 mg Q6H PRN Administration Itching Famotidine 20 mg 03/11/23 21:00 03/16/23 08:53 Famotidine 20 Mg Tablet PO 20 mg Q12HR GUILLERMO Administration Heparin Sodium (Porcine) 5,000 units 03/10/23 09:00 03/15/23 21:08 Heparin Sodium 5,000 Units/Ml Vial SUB-Q 5,000 units Q12HR GUILLERMO Administration Hydrochlorothiazide 12.5 mg 03/10/23 09:00 03/16/23 08:52 Hydrochlorothiazide 12.5 Mg Capsule PO 12.5 mg DAILY GUILLERMO Administration Cefazolin Sodium 2 gm in 50 mls @ 100 mls/hr 03/15/23 13:00 03/16/23 05:46 Ancef
[2023-03-16] MEDS: LORazepam INJ (*CRX) 2 MG/ML VIAL 0.5 MG IV PUSH (11:01)
--- NOTE | 2023-03-16 13:05 | P.PNIM_ITS ---
Progress Note: A&P Assessment and Plan (1) Bacteremia: Code(s): R78.81 - Bacteremia Status: Acute Assessment and Plan: Patient presented to the ED on 03/09/2023 due to right knee pain. Patient describes the pain as a 10/10 intensity. * Synovial fluid analysis revealing and MSSA * Blood cultures Staphylococcus aureus, MSSA on 03/09/2023 * Wound culture is Staph aureus, MSSA * Stop vanc and start levaquin and ancef * Will most likely need IV antibiotics, family prefers oral if possible, could see about Levaquin * Repeat cultures on 03/11/2023 Grew staph aureus in one bottle * Blood cultures drawn once again on 03/15/2023 and are pending * Patient will most likely require PICC line with 4 weeks of IV antibiotics plan to place PICC line after blood cultures are negative * Will adjust therapy when appropriate (2) Septic arthritis of knee, right: Qualifiers: Septic arthritis organism: due to unspecified organism Qualified Code(s): M00.9 - Pyogenic arthritis, unspecified Code(s): M00.9 - Pyogenic arthritis, unspecified Status: Acute Assessment and Plan: * POD 5 from right knee arthroscopic washout * Xray indicates worsening effusion with possible cellulitis * Gram stain positive for MSSA * Blood cultures grew staph aureus, MSSA * Stop vanc and start levaquin and ancef * pain medications on board * Ortho consulted and appreciate recommendations * 03/15/23 patient had a white count that would not go down from approximately 20,000. Concern for ongoing infection. Ultrasound of the right knee demonstrated large suprapatellar effusion and large popliteal fossa fluid collection likely a popliteal cyst. * Aspiration of the suprapatellar effusion performed removing 8 cc of bloody dark thick fluid. Culture ordered. * 03/16/23MRI scan ordered followed by IR drainage of popliteal cyst. (3) Leukocytosis: Qualifiers: Leukocytosis type: unspecified Qualified Code(s): D72.829 - Elevated white blood cell count, unspecified Code(s): D72.829 - Elevated white blood cell count, unspecified Status: Acute Assessment and Plan: * WBC elevated at 20.5 to 18.3 today * Currently on vanco, trough is 12.5, seems that she might of failed vanc at this point * Stop vanc and start levaquin and ancef * Current source of infection appears to be bacteremia and septic joint * Consider adding another agent for better control * Trend labs (4) Acute metabolic encephalopathy: Code(s): G93.41 - Metabolic encephalopathy Status: Acute Assessment and Plan: * Seems to be confused at the moment * 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 * Oncology recommending follow-up in the office. * Trend mental status * Adjust therapy as indicated (5) Chronic kidney disease: Qualifiers: Chronic kidney disease stage: stage 3 (moderate) Chronic kidney disease stage 3 subtype: stage 3b (GFR 30-44) Qualified Code(s): N18.32 - Chronic kidney disease, stage 3b Code(s): N18.9 - Chronic kidney disease, unspecified Status: Chronic Assessment and Plan: * Stage 3 * Baseline creatinine appears to be 0.8-1.10 * Stable at this time * Avoid nephrotoxic medications * trend labs * Adjust therapy as indicated * Seems to be back to base
--- NOTE | 2023-03-16 13:05 | PM.IMPN ---
Progress Note: A&P Assessment and Plan (1) Bacteremia: Code(s): R78.81 - Bacteremia Status: Acute Assessment and Plan: Patient presented to the ED on 03/09/2023 due to right knee pain. Patient describes the pain as a 10/10 intensity. Synovial fluid analysis revealing and MSSA Blood cultures Staphylococcus aureus, MSSA on 03/09/2023 Wound culture is Staph aureus, MSSA Stop vanc and start levaquin and ancef Will most likely need IV antibiotics, family prefers oral if possible, could see about Levaquin Repeat cultures on 03/11/2023 Grew staph aureus in one bottle Blood cultures drawn once again on 03/15/2023 and are pending Patient will most likely require PICC line with 4 weeks of IV antibiotics plan to place PICC line after blood cultures are negative Will adjust therapy when appropriate (2) Septic arthritis of knee, right: Qualifiers: Septic arthritis organism: due to unspecified organism Qualified Code(s): M00.9 - Pyogenic arthritis, unspecified Code(s): M00.9 - Pyogenic arthritis, unspecified Status: Acute Assessment and Plan: POD 5 from right knee arthroscopic washout Xray indicates worsening effusion with possible cellulitis Gram stain positive for MSSA Blood cultures grew staph aureus, MSSA Stop vanc and start levaquin and ancef pain medications on board Ortho consulted and appreciate recommendations 03/15/23 patient had a white count that would not go down from approximately 20,000. Concern for ongoing infection. Ultrasound of the right knee demonstrated large suprapatellar effusion and large popliteal fossa fluid collection likely a popliteal cyst. Aspiration of the suprapatellar effusion performed removing 8 cc of bloody dark thick fluid. Culture ordered. 03/16/23MRI scan ordered followed by IR drainage of popliteal cyst. (3) Leukocytosis: Qualifiers: Leukocytosis type: unspecified Qualified Code(s): D72.829 - Elevated white blood cell count, unspecified Code(s): D72.829 - Elevated white blood cell count, unspecified Status: Acute Assessment and Plan: WBC elevated at 20.5 to 18.3 today Currently on vanco, trough is 12.5, seems that she might of failed vanc at this point Stop vanc and start levaquin and ancef Current source of infection appears to be bacteremia and septic joint Consider adding another agent for better control Trend labs (4) Acute metabolic encephalopathy: Code(s): G93.41 - Metabolic encephalopathy Status: Acute Assessment and Plan: Seems to be confused at the moment Head ct 1.3cm right orbital mass and 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 Oncology recommending follow-up in the office. Trend mental status Adjust therapy as indicated (5) Chronic kidney disease: Qualifiers: Chronic kidney disease stage: stage 3 (moderate) Chronic kidney disease stage 3 subtype: stage 3b (GFR 30-44) Qualified Code(s): N18.32 - Chronic kidney disease, stage 3b Code(s): N18.9 - Chronic kidney disease, unspecified Status: Chronic Assessment and Plan: Stage 3 Baseline creatinine appears to be 0.8-1.10 Stable at this time Avoid nephrotoxic medications trend labs Adjust therapy as indicated Seems to be back to baseline (6) HTN (hypertension): Qualifiers: Hypertension type: primary hypertension Qualified Code(s): I10 - Essential (primary) hypertension Code(s): I10 - Essential (primary) hypertension Status: Chronic Assessment and Plan: Continue home medications Trend BP adjust therapy as indicated (7) Orbital mass: Code(s): 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 Status: Acute Assessment and Plan: Incidental finding
--- NOTE | 2023-03-16 13:36 | PCOTNOTE ---
The patient treatment was not able to be completed on Mar 16 2023 due to patient getting back from MRI, being on the bed garcia, then leaving for a procedure on her knee. Will plan to continue treatment per plan of care.
[2023-03-16 13:49] LABS: Potassium 3.2 mmol/L (3.4-5.0)
[2023-03-16] MEDS: oxyCODONE HCL (*CRX) 5 MG TAB IR PO (13:51)
--- NOTE | 2023-03-16 15:14 | PCPTNOTE ---
Attempted to see patient for PT, however patient was out of room for procedure.
[2023-03-16 15:40] VITALS: BP 151/66; PULSE 73; RESP 18; TEMP 36.6; O2SAT 96
[2023-03-16 15:47] LABS: Appearance Synovial Fluid Bloody (Clear); Color Synovial Fluid Red (Colorless); Lymphocytes Synovial Fluid 11 %; Monocytes Synovial Fluid 5 %; Neutrophils Synovial Fluid 84 % (0-25); Nucleated Cell Synovial Fluid QNS /uL (0-200); Source Synovial Fluid Synovial fluid
[2023-03-16 15:48] LABS: RBC Synovial Fluid QNS /uL (0-0)
[2023-03-16 20:09] VITALS: PULSE 80; RESP 20
[2023-03-16 20:10] VITALS: PULSE 80; RESP 20; O2SAT 92
[2023-03-16] MEDS: MONTELUKAST SODIUM 10 MG TABLET PO (20:26)
[2023-03-16] MEDS: oxyCODONE HCL (*CRX) 2.5 MG TAB IR PO (20:26)
[2023-03-16] MEDS: ASPIRIN 81 MG ENTERIC TABLET PO (20:26)
[2023-03-16 21:10] VITALS: BP 161/66; PULSE 77; RESP 16; TEMP 36.7; O2SAT 94
[2023-03-16] MEDS: ENOXAPARIN 30 MG/0.3 ML SYRINGE SUB-Q (22:27)
[2023-03-17] MEDS: oxyCODONE HCL (*CRX) 2.5 MG TAB IR PO ×3 (00:37→08:34)
[2023-03-17 05:31] VITALS: BP 169/76; PULSE 71; RESP 16; TEMP 36.7; O2SAT 93
[2023-03-17 05:56] LABS: Basophils Absolute Auto 0.1 K/mm3 (0.0-0.1); Basophils Percent Auto 0.5 % (0.2-1.2); Eosinophils Absolute Auto 0.1 K/mm3 (0-0.3); Eosinophils Percent Auto 0.5 % (0-4.4); Hematocrit 26.9 % (37.0-47.0); Hemoglobin 8.5 g/dL (12.0-15.0); Immature Granulocyte Absolute 1.41 K/mm3 (0.00-0.031); Immature Granulocyte Percent A 8.5 % (0-0.5); Lymphocytes Absolute Auto 1.78 K/mm3 (0.9-3.2); Lymphocytes Percent Auto 10.7 % (18.3-44.2); Mean Corpuscular HGB Conc 31.6 g/dl (32-36); Mean Corpuscular Hemoglobin 27.4 pg (26-34); Mean Corpuscular Volume 86.8 fl (80-100); Mean Platelet Volume 9.7 fl (7.4-10.4); Monocytes Absolute Auto 1.4 K/mm3 (0.1-0.6); Monocytes Percent Auto 8.6 % (2.6-8.5); Neutrophils Absolute Auto 11.8 K/mm3 (1.3-6.7); Neutrophils Percent Auto 71.2 % (45.5-73.1); Platelet Count Result 503 k/mm3 (150-375); Red Cell Distribution Width 14.6 % (11.5-14.5); White Blood Count 16.6 K/mm3 (4.5-10.0)
[2023-03-17 06:13] LABS: Alanine Aminotransferase 12 U/L (6-35); Albumin Level 2.8 g/dL (3.5-5.1); Alkaline Phosphatase 104 U/L (38-126); Anion Gap 2 mmol/L (8-16); Aspartate Amino Transferase 29 U/L (14-36); Bilirubin,Total 0.7 mg/dL (0.2-1.3); Blood Urea Nitrogen 13 mg/dL (7-17); Calcium 7.8 mg/dL (8.4-10.2); Carbon Dioxide 39 mmol/L (22-30); Chloride 90 mmol/L (98-107); Estimated CRCL calculation 46 ml/min; Estimated Glomerular Filt Rate > 60; Glucose 96 mg/dL (65-110); Potassium 3.3 mmol/L (3.4-5.0); Sodium 131 mmol/L (137-145)
[2023-03-17] MEDS: ceFAZolin 2 GM/D5W 50 ML 2 GM/50 ML BAG IVPB ×3 (06:18→21:11)
[2023-03-17] MEDS: POTASSIUM CHLORIDE 20 MEQ PACKET (FOR LIQUID) 40 MEQ PO (08:33)
[2023-03-17] MEDS: ENOXAPARIN 30 MG/0.3 ML SYRINGE SUB-Q ×2 (08:34→21:10)
[2023-03-17] MEDS: PANTOPRAZOLE 40 MG TABLET PO (08:35)
[2023-03-17] MEDS: FAMOTIDINE 20 MG TABLET PO ×2 (08:35→21:10)
[2023-03-17] MEDS: CITALOPRAM HYDROBROMIDE 20 MG TABLET PO (08:35)
[2023-03-17] MEDS: hydroCHLOROthiazide 12.5 MG CAPSULE PO (08:35)
--- NOTE | 2023-03-17 11:41 | PM.PNORT ---
Progress Note: A&P Assessment and Plan (1) Septic arthritis of knee, right: Qualifiers: Septic arthritis organism: due to unspecified organism Qualified Code(s): M00.9 - Pyogenic arthritis, unspecified Code(s): M00.9 - Pyogenic arthritis, unspecified Status: Acute Assessment and Plan: Patient is postop day 6. After arthroscopic debridement subacute septic arthritis right knee growing oxacillin sensitive Staph aureus. Patient remains on Ancef 2 g q.8 hours. Drain has a little bit of bloody fluid from the knee. Both the suprapatellar space and the popliteal cyst were aspirated yesterday by the radiologist under image guidance. Only a small amount of fluid could be removed from the popliteal cyst. Drain was left in suprapatellar pouch. White count today is 16,000 down from 18 the day before in 20 the day before that. Will check a C-reactive protein tomorrow. Blood culture is no growth so far. We should be able to order the PICC line now. She is afebrile was stable vital signs. Her hemoglobin is 8.5. Her vitals have been stable. Physiologically, she is completely alert and oriented today which is a clinical indicator of better infection control. However she is having more pain. We have her on schedule 2.5 mg oxycodone so and scheduled Tylenol. She has tolerated 7.5 hydrocodone sent home on a p.r.n. basis before coming into the hospital. I am going to increase the oxycodone to 5 mg q.4 hours scheduled and will leave 5 mg as a p.r.n. as well. I am not sure she has been getting the p.r.n. oxycodone as they are available for her. She is getting out of bed with physical therapy has the knee immobilizer on it we will discontinue it the in the immobilizer we pull out the drain which may be tomorrow depending on the drain output. Subjective Subjective Date/Time Seen: 03/17/23 11:41 Objective Data Vital Signs Vital Signs: Vital Signs - 24 hr 03/16/23 15:40 03/16/23 20:09 03/16/23 20:10 Temperature 36.6 C Pulse Rate 73 80 80 Respiratory Rate 18 20 20 Blood Pressure 151/66 H Pulse Oximetry 96 92 Oxygen Delivery Room Air Fraction of Inspired Oxygen 03/16/23 21:10 03/17/23 05:31 03/17/23 08:00 Temperature 36.7 C 36.7 C Pulse Rate 77 71 Respiratory Rate 16 16 Blood Pressure 161/66 H 169/76 H Pulse Oximetry 94 93 Oxygen Delivery Room Air Fraction of Inspired Oxygen 21 Intake/Output Intake/Output: Intake & Output 03/14/23 03/15/23 03/16/23 03/17/23 23:59 23:59 23:59 23:59 Intake Total 770 1920 490 420 Output Total 1450 1050 1225 5 Balance -680 870 -735 415 Meds/Results Medications: Active Medications Generic Name Dose Route Start Last Admin Trade Name Freq PRN Reason Stop Dose Admin Aspirin 81 mg 03/09/23 21:00 03/16/23 20:26 Aspirin 81 Mg Enteric Tablet PO 04/09/23 20:59 81 mg HS GUILLERMO Administration Bisacodyl 10 mg 03/14/23 13:27 03/15/23 07:55 Bisacodyl 5 Mg Tablet Ec PO 10 mg DAILY PRN Administration Constipation Calcium Carbonate 500 mg 03/10/23 09:00 03/17/23 08:34 Calcium/Vitamin D 500 Mg Tablet PO 500 mg QAM GUILLERMO Administration Citalopram Hydrobromide 20 mg 03/10/23 09:00 03/17/23 08:35 Citalopram Hydrobromide 20 Mg Tablet PO 20 mg DAILY GUILLERMO Administration Diphenhydramine HCl 25 mg 03/09/23 18:35 03/09/23 18:48 Diphenhydramine Hcl Cap 25 Mg Capsule PO 25 mg Q6H PRN Administration Itching Enoxaparin Sodium 30 mg 03/16/23 21:00 03/17/23 08:34 Enoxaparin 30 Mg/0.3 Ml Syringe SUB-Q 30 mg Q12HR GUILLERMO Administration Famotidine 20 mg 03/11/23 21:00 03/17/23 08:35 Famotidine 20 Mg Tablet PO 20 mg Q12HR GUILLERMO Administration Hydrochlorothiazide 12.5 mg 03/10/23 09:00 03/17/23 08:35 Hydrochlorothiazide 12.5 Mg Capsule PO 12.5 mg DAILY GUILLERMO Administration Cefazolin Sodium 2 gm in 50 mls @ 100 mls/hr 03/15/23 13:00 03/17/23 06:48 Ancef 2
[2023-03-17 12:01] VITALS: BP 144/56
[2023-03-17] MEDS: oxyCODONE HCL (*CRX) 5 MG TAB IR PO ×4 (12:01→21:10)
--- NOTE | 2023-03-17 13:59 | VASCRN ---
Order received for: Picc line placement today After review of the chart and the patient assessment, patient is not a candidate for the following reason(s): Most recent blood cultures drawn 03/15/23 around 2029. Waiting for 48 hour read on blood culture prior to placement of picc line, if blood cultures remain negative for growth. ID pharmacist in agreement with waiting for 48 hour blood culture result. Provider notified: Dr. Sultana in agreement. Picc line order adjusted for placement tomorrow morning.
[2023-03-17 14:05] VITALS: BP 138/57; PULSE 75; RESP 18; TEMP 36.9; O2SAT 94
--- NOTE | 2023-03-17 14:06 | P.PNIM_ITS ---
Progress Note: A&P Assessment and Plan (1) Bacteremia: Code(s): R78.81 - Bacteremia Status: Acute Assessment and Plan: Patient presented to the ED on 03/09/2023 due to right knee pain. Patient describes the pain as a 10/10 intensity. * Synovial fluid analysis revealing and MSSA * Blood cultures Staphylococcus aureus, MSSA on 03/09/2023 * Wound culture is Staph aureus, MSSA * Stop vanc and start levaquin and ancef * Repeat cultures on 03/11/2023 Grew staph aureus in one bottle * Blood cultures drawn once again on 03/15/2023 and are pending * Patient will most likely require PICC line with 4 weeks of IV antibiotics plan to place PICC line after blood cultures are negative * Will adjust therapy when appropriate (2) Septic arthritis of knee, right: Qualifiers: Septic arthritis organism: due to unspecified organism Qualified Code(s): M00.9 - Pyogenic arthritis, unspecified Code(s): M00.9 - Pyogenic arthritis, unspecified Status: Acute Assessment and Plan: * POD 6 from right knee arthroscopic washout of augustine knee * Xray indicates worsening effusion with possible cellulitis * Gram stain positive for MSSA * Blood cultures grew staph aureus, MSSA * Stop vanc and start levaquin and ancef * pain medications on board * Ortho consulted and appreciate recommendations * 03/15/23 patient had a white count that would not go down from approximately 20,000. Concern for ongoing infection. Ultrasound of the right knee demonstrated large suprapatellar effusion and large popliteal fossa fluid collection likely a popliteal cyst. * Aspiration of the suprapatellar effusion performed removing 8 cc of bloody dark thick fluid. Culture ordered. * 03/16 MRI scan ordered followed by IR drainage of popliteal cyst and joint effusion. Drain placed. * 03/17 possible drain removal tomorrow. * Echocardiogram with EF of 65-70%, grade 1 diastolic dysfunction, mild aortic stenosis, mitral valve with calcified annulus, mild pulmonary hypertension, no valvular vegetation noted. 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 * Oncology recommending follow-up in the office. * Trend mental status * Adjust therapy as indicated (5) Chronic kidney disease: Qualifiers: Chronic kidney disease stage: stage 3 (moderate) Chronic kidney disease stage 3 subtype: stage 3b (GFR 30-44) Qualified Code(s): N18.32 - Chronic kidney disease, stage 3b Code(s): N18.9 - Chronic kidney disease, unspecified Status: Chronic Assessment and Plan: * Stage 3 * Baseline creatinine appears to be 0.8-1.10 * Stable at this time * Avoid nephrotoxic medications * trend labs * Adjust therapy as indicated * Se
--- NOTE | 2023-03-17 14:06 | PM.IMPN ---
Progress Note: A&P Assessment and Plan (1) Bacteremia: Code(s): R78.81 - Bacteremia Status: Acute Assessment and Plan: Patient presented to the ED on 03/09/2023 due to right knee pain. Patient describes the pain as a 10/10 intensity. Synovial fluid analysis revealing and MSSA Blood cultures Staphylococcus aureus, MSSA on 03/09/2023 Wound culture is Staph aureus, MSSA Stop vanc and start levaquin and ancef Repeat cultures on 03/11/2023 Grew staph aureus in one bottle Blood cultures drawn once again on 03/15/2023 and are pending Patient will most likely require PICC line with 4 weeks of IV antibiotics plan to place PICC line after blood cultures are negative Will adjust therapy when appropriate (2) Septic arthritis of knee, right: Qualifiers: Septic arthritis organism: due to unspecified organism Qualified Code(s): M00.9 - Pyogenic arthritis, unspecified Code(s): M00.9 - Pyogenic arthritis, unspecified Status: Acute Assessment and Plan: POD 6 from right knee arthroscopic washout of [place] knee Xray indicates worsening effusion with possible cellulitis Gram stain positive for MSSA Blood cultures grew staph aureus, MSSA Stop vanc and start levaquin and ancef pain medications on board Ortho consulted and appreciate recommendations 03/15/23 patient had a white count that would not go down from approximately 20,000. Concern for ongoing infection. Ultrasound of the right knee demonstrated large suprapatellar effusion and large popliteal fossa fluid collection likely a popliteal cyst. Aspiration of the suprapatellar effusion performed removing 8 cc of bloody dark thick fluid. Culture ordered. 03/16 MRI scan ordered followed by IR drainage of popliteal cyst and joint effusion. Drain placed. 03/17 possible drain removal tomorrow. Echocardiogram with EF of 65-70%, grade 1 diastolic dysfunction, mild aortic stenosis, mitral valve with calcified annulus, mild pulmonary hypertension, no valvular vegetation noted. 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 Oncology recommending follow-up in the office. Trend mental status Adjust therapy as indicated (5) Chronic kidney disease: Qualifiers: Chronic kidney disease stage: stage 3 (moderate) Chronic kidney disease stage 3 subtype: stage 3b (GFR 30-44) Qualified Code(s): N18.32 - Chronic kidney disease, stage 3b Code(s): N18.9 - Chronic kidney disease, unspecified Status: Chronic Assessment and Plan: Stage 3 Baseline creatinine appears to be 0.8-1.10 Stable at this time Avoid nephrotoxic medications trend labs Adjust therapy as indicated Seems to be back to baseline (6) HTN (hypertension): Qualifiers: Hypertension type: primary hypertension Qualified Code(s): I10 - Essential (primary) hypertension Code(s): I10 - Essential (primary) hypertension Status: Chronic Assessment and Plan: Continue home medications Trend BP adjust therapy as indicated (7) Orbital mass: Code(s): 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 Status: Acute Assessment and Plan:
--- NOTE | 2023-03-17 15:03 | PC.NURSE ---
Pt has denied need for additional pain medication each time RN assesses during hourly rounding. Pt has received scheduled oxycodone on time and has reported her pain to be controlled with that. Visitors arrived and informed the doctor that pt was in severe pain while pt was resting in bed. Doctor called the floor and stated that the pt is not getting pain medication as often as she should and noted that pt is not receiving PRN oxycodone in addition to scheduled oxycodone. RN not comfortable administering additional narcotics without a complaint of pain within the ordered parameters. Will continue to monitor and give appropriate pain medications as needed.
[2023-03-17 20:14] VITALS: BP 140/55; PULSE 78; RESP 14; TEMP 37.1; O2SAT 92
[2023-03-17] MEDS: FLUTICASONE/SALMETEROL 230-21 MCG INHALER 1 PUFF 2 PUFF INHALATION (20:38)
[2023-03-17 20:41] VITALS: O2SAT 92
[2023-03-17] MEDS: ASPIRIN 81 MG ENTERIC TABLET PO (21:10)
[2023-03-17] MEDS: MONTELUKAST SODIUM 10 MG TABLET PO (21:10)
[2023-03-18] VITALS (7 sets, daily range): BP systolic 121–133; BP diastolic 49–63; PULSE 60–77; RESP 16–18; TEMP 36.6–36.7; O2SAT 93–96
[2023-03-18] MEDS: oxyCODONE HCL (*CRX) 5 MG TAB IR PO ×7 (01:05→20:27)
--- NOTE | 2023-03-18 02:04 | PC.NURSE ---
Pain management plan discussed at length with patient. Patient was confused/hallucinating when awake and frequently somnolent overnight Friday 03/16, pain medications were administered cautiously and PRN doses were withheld because of this. Patient has exhibited no confusion or somnolence since 03/17 and verbalized understanding of PRN pain medication purpose and availability. Patient has verbalized pain of 5-6/10 this evening, patient stated she does not want to take PRN oxycodone and wants GUILELRMO dose only. Patient verbalized understanding that additional dose of oxycodone is available at any time if she would like it for pain rated 4-10.
[2023-03-18] MEDS: ceFAZolin 2 GM/D5W 50 ML 2 GM/50 ML BAG IVPB ×3 (05:13→21:39)
[2023-03-18 05:22] LABS: Basophils Absolute Auto 0.2 K/mm3 (0.0-0.1); Eosinophils Absolute Auto 0.2 K/mm3 (0-0.3); Eosinophils Percent Auto 1.2 % (0-4.4); Hematocrit 26.4 % (37.0-47.0); Hemoglobin 8.3 g/dL (12.0-15.0); Immature Granulocyte Absolute 1.21 K/mm3 (0.00-0.031); Immature Granulocyte Percent A 8.4 % (0-0.5); Lymphocytes Absolute Auto 2.53 K/mm3 (0.9-3.2); Lymphocytes Percent Auto 17.7 % (18.3-44.2); Mean Corpuscular HGB Conc 31.4 g/dl (32-36); Mean Corpuscular Hemoglobin 27.1 pg (26-34); Mean Corpuscular Volume 86.3 fl (80-100); Mean Platelet Volume 9.6 fl (7.4-10.4); Monocytes Absolute Auto 1.4 K/mm3 (0.1-0.6); Monocytes Percent Auto 9.8 % (2.6-8.5); Neutrophils Absolute Auto 8.9 K/mm3 (1.3-6.7); Neutrophils Percent Auto 61.9 % (45.5-73.1); Platelet Count Result 529 k/mm3 (150-375); Red Blood Count 3.06 M/mm3 (4.2-5.4); Red Cell Distribution Width 14.6 % (11.5-14.5); White Blood Count 14.3 K/mm3 (4.5-10.0)
[2023-03-18 05:35] LABS: Alanine Aminotransferase 11 U/L (6-35); Albumin Level 2.8 g/dL (3.5-5.1); Alkaline Phosphatase 103 U/L (38-126); Anion Gap 0 mmol/L (8-16); Aspartate Amino Transferase 27 U/L (14-36); Bilirubin,Total 0.6 mg/dL (0.2-1.3); Blood Urea Nitrogen 16 mg/dL (7-17); Calcium 7.8 mg/dL (8.4-10.2); Carbon Dioxide 38 mmol/L (22-30); Chloride 91 mmol/L (98-107); Estimated CRCL calculation 46 ml/min; Estimated Glomerular Filt Rate > 60; Glucose 102 mg/dL (65-110); Potassium 3.4 mmol/L (3.4-5.0); Sodium 129 mmol/L (137-145)
[2023-03-18 05:43] LABS: CRP 14.4 mg/dL (<1.0)
[2023-03-18 05:51] LABS: Anisocytosis 1+ (NORMAL); Hypochromasia 2+ (NORMAL); Platelet Estimate Increased (Adequate); Schistocytes None Seen (NORMAL)
--- NOTE | 2023-03-18 06:47 | VASCRN ---
Order received for: Picc line insertion 03/18/23 at 0645 I called [employer] to check for any growth in blood cultures from 03/15/23. Currently the cultures (x2) have no growth. Will proceed with picc line insertion this AM. Provider notified:
--- NOTE | 2023-03-18 07:29 | PM.PNORT ---
Progress Note: A&P Assessment and Plan (1) Septic arthritis of knee, right: Qualifiers: Septic arthritis organism: due to unspecified organism Qualified Code(s): M00.9 - Pyogenic arthritis, unspecified Code(s): M00.9 - Pyogenic arthritis, unspecified Status: Acute Assessment and Plan: Patient is postop day 7. After arthroscopic debridement and washout of spontaneous septic arthritis of the right knee which was subacute at that point. The aspiration that I did on Wednesday evening does should grow light growth of Staph aureus presumably the same bacteria. The Ancef had just been started at that point. Cultures from the aspiration on the are still pending. Blood cultures are no growth so far. Her white count is down to 14,000. C-reactive protein is 14.4 which is down from 18 3 days ago. Clinically her pain is under much better control. She had not been receiving her p.r.n. oxycodone yesterday and I think that is why she was having so much pain. We have scheduled her at 5 mg q.4 hours with a 5 mg p.r.n. and her pain is very well controlled today unless the knee is moved a little bit that is quite painful. Her drain has had nothing out overnight. It had 15 cc out total yesterday. We will discontinue it today and discontinue the knee immobilizer and try to mobilize the patient now. Continue with Ancef and observe for further clinical improvement. Clinically her knee has sutures in the portal sites and they look clean there is no erythema but she does have mild warmth about the right knee as 1 would expect. There is no significant calf swelling or tenderness and she wiggles her toes up and down well. She is completely alert and oriented this morning. Subjective Subjective Date/Time Seen: 03/18/23 07:29 Objective Data Vital Signs Vital Signs: Vital Signs - 24 hr 03/17/23 08:00 03/17/23 12:01 03/17/23 14:05 Temperature 36.9 C Pulse Rate 75 Respiratory Rate 18 Blood Pressure 144/56 H 138/57 L Pulse Oximetry 94 Oxygen Delivery Room Air Fraction of Inspired Oxygen 21 03/17/23 16:01 03/17/23 20:14 03/17/23 20:41 Temperature 37.1 C Pulse Rate 78 Respiratory Rate 14 Blood Pressure 140/55 L Pulse Oximetry 92 92 Oxygen Delivery Room Air Room Air Fraction of Inspired Oxygen 03/18/23 05:28 Temperature 36.6 C Pulse Rate 60 Respiratory Rate 16 Blood Pressure 133/63 Pulse Oximetry 96 Oxygen Delivery Fraction of Inspired Oxygen Intake/Output Intake/Output: Intake & Output 03/15/23 03/16/23 03/17/23 03/18/23 23:59 23:59 23:59 23:59 Intake Total 4787 389 9947 150 Output Total 1050 1225 220 352 Balance 870 -735 1060 -202 Meds/Results Medications: Active Medications Generic Name Dose Route Start Last Admin Trade Name Freq PRN Reason Stop Dose Admin Aspirin 81 mg 03/09/23 21:00 03/17/23 21:10 Aspirin 81 Mg Enteric Tablet PO 04/09/23 20:59 81 mg HS GUILLERMO Administration Bisacodyl 10 mg 03/14/23 13:27 03/15/23 07:55 Bisacodyl 5 Mg Tablet Ec PO 10 mg DAILY PRN Administration Constipation Calcium Carbonate 500 mg 03/10/23 09:00 03/17/23 08:34 Calcium/Vitamin D 500 Mg Tablet PO 500 mg QAM GUILLERMO Administration Citalopram Hydrobromide 20 mg 03/10/23 09:00 03/17/23 08:35 Citalopram Hydrobromide 20 Mg Tablet PO 20 mg DAILY GUILLERMO Administration Diphenhydramine HCl 25 mg 03/09/23 18:35 03/09/23 18:48 Diphenhydramine Hcl Cap 25 Mg Capsule PO 25 mg Q6H PRN Administration Itching Enoxaparin Sodium 30 mg 03/16/23 21:00 03/17/23 21:10 Enoxaparin 30 Mg/0.3 Ml Syringe SUB-Q 30 mg Q12HR GUILLERMO Administration Famotidine 20 mg 03/11/23 21:00 03/17/23 21:10 Famotidine 20 Mg Tablet PO 20 mg Q12HR GUILLERMO Administration Hydrochlorothiazide 12.5 mg 03/10/23 09:00 03/17/23 08:35 Hydrochlorothiazide 12.5 Mg Capsule PO 12.5 mg DAILY GUILLERMO Administration Cefazolin Sodium
[2023-03-18] MEDS: LIDOCAINE HCL 1% PF INJ 5 ML VIAL INFILTRATE (07:45)
[2023-03-18] MEDS: FLUTICASONE/SALMETEROL 230-21 MCG INHALER 1 PUFF 2 PUFF INHALATION ×2 (08:21→19:38)
[2023-03-18] MEDS: ENOXAPARIN 30 MG/0.3 ML SYRINGE SUB-Q ×2 (08:46→20:27)
[2023-03-18] MEDS: FAMOTIDINE 20 MG TABLET PO ×2 (08:47→20:27)
[2023-03-18] MEDS: PANTOPRAZOLE 40 MG TABLET PO (08:47)
[2023-03-18] MEDS: CITALOPRAM HYDROBROMIDE 20 MG TABLET PO (08:47)
[2023-03-18] MEDS: hydroCHLOROthiazide 12.5 MG CAPSULE PO (08:47)
--- NOTE | 2023-03-18 10:54 | PHA.ABX.ID ---
Pharmacy ID Consult - Stewardship Interventions Type of Interventions: Discharge Recommendation Pharmacy ID Note: 03/10/23 11:07 - ID Pharmacy Note by Frederick Sifuentes PharmD [facility] Num: [id number] : 1940 Patient Age: 83 Addendum entered by Frederick Sifuentes PharmD 03/18/23 08:28: DUE TO PROCESS CHANGES I HAVE MOVED THIS PREVIOUS NOTE (BELOW) TO THIS NOTE FORMAT SO TO CONSOLIDATE INFORMATION LOCATION. Have been asked by Jc Doherty to provide recommendations regarding blood monitoring for Ancef IV over the next 4 weeks and the appropriateness of Ancef 2g IV q8h as a dosing schedule for these prolonged 4 weeks. Have previously discussed with hospitalist provider that perhaps the patient may not be able to discharge with q8h parenteral antibiotics given restrictions of the facility in which the patient will be placed. Noted that with this patient's current eCrCl (~46 mL/min) that, per Lexicomp Dosing Guidance, this patient would qualify for either Cefazolin IV 2g q8h or Cefazolin IV 2g q12h and while the patient may benefit from more aggressive therapy whilst inpatient, dosing guidance does seem to allow the usage of the q12h dosing regimen as was requested to be looked into by Case Management and Hospitalist provider to optimize placement concerns regarding these parenteral antibiotics. Please note below for lab monitoring recommendations for the 3 discussed discharge antibiotics with the hospitalist, and leave final decision up to provider teams. Ancef IV 2g q8h or Ancef IV 2g q12h: Lab monitoring of CBC and BMP once weekly Vancomycin IV 1.5 g q12h: Lab monitoring of Vancomycin Trough prior to 4th or 5th dose, Vancomycin Trough at least weekly or as needed, CBC and BMP once weekly at least, or as needed for monitoring potential toxicity. Daptomycin IV 500 mg q24h (Dose calculated using adjusted body weight of 64 kg and 8 mg/kg dosing schema): Lab monitoring of CK at baseline and CK, CBC, and BMP weekly. Previous Notes Below and also remain in the Allied Providers Section too Addendum entered by Frederick Sifuentes PharmD 03/12/23 11:27: Cultures reveal likely MSSA BSI 2/2 Staphylococcus Aureus Septic Arthritis (sensitivities of 03/09 aspiration pending) of the [place] knee s/p washout and aspiration. Should source control be sufficient and repeat blood culture (03/11 sets) be negative, patient will likely need 4 weeks of antibiotics from negative cultures. Assuming target organism doesn't change most common therapies include cefazolin 2g q8h (renally adjusted as appropriate), or vancomycin IV given patient's allergy to beta-lactams. Given likely easier to be administered outpatient, continue vancomycin (Total therapy D4). Follow culture results from 03/09 aspiration and 03/11 blood cultures. This information discussed with the hospitalist provider per the request of consulting provider on 03/10. Likely will sign off soon. Original Note: Subjective Pharmacy was consulted by Jason Padron regarding infectious diseases for Jamia Palacios. Jamia Palacios is a 83 year old F with concerns regarding septic arthritis of [place] knee. Background The patient is currently receiving IV Vancomycin (~ Day 2). The patient's PMH includes CKD among what is listed in providers' notes. Per consulting provider patient has had symptoms for a few days and presents with a swollen and hot knee. Patient underwent aspiration of the knee on 03/09 (GPC and WBC seen on stain - culture pending). Additionally, 03/09 BCX are still pending. Patient has a resolving leukocytosis 21.1--> 17.2 and stable SCr at 1.1 mg/dL. Patient has been afebrile since admission. 03/09 Synovial GPC/WBC on stain - CX pending 03/09 BCX Pending Assessment/Recommendation/Discussion Spoke with consulting provider regarding this patient with [place]bilox[place] knee septic arthritis. Vancomycin on board will likely cover likely GPC pathogens (s. aureus/GAS) empirically, but will follow for targeted therapy. Provider stated
--- NOTE | 2023-03-18 12:33 | P.PNIM_ITS ---
Progress Note: A&P Assessment and Plan (1) Bacteremia: Code(s): R78.81 - Bacteremia Status: Acute Assessment and Plan: Patient presented to the ED on 03/09/2023 due to right knee pain. Patient describes the pain as a 10/10 intensity. * Synovial fluid analysis revealing and MSSA * Blood cultures Staphylococcus aureus, MSSA on 03/09/2023 * Wound culture is Staph aureus, MSSA * Stop vanc and start levaquin and ancef * Repeat cultures on 03/11/2023 Grew staph aureus in one bottle * Blood cultures drawn once again on 03/15/2023 NGTD * Place PICC line with 4 weeks of IV antibiotics * Will adjust therapy when appropriate (2) Septic arthritis of knee, right: Qualifiers: Septic arthritis organism: due to unspecified organism Qualified Code(s): M00.9 - Pyogenic arthritis, unspecified Code(s): M00.9 - Pyogenic arthritis, unspecified Status: Acute Assessment and Plan: * POD 6 from right knee arthroscopic washout of [place] knee * Xray indicates worsening effusion with possible cellulitis * Gram stain positive for MSSA * Blood cultures grew staph aureus, MSSA * Stop vanc and start levaquin and ancef * pain medications on board * Ortho consulted and appreciate recommendations * 03/15/23 patient had a white count that would not go down from approximately 20,000. Concern for ongoing infection. Ultrasound of the right knee demonstrated large suprapatellar effusion and large popliteal fossa fluid collection likely a popliteal cyst. * Aspiration of the suprapatellar effusion performed removing 8 cc of bloody dark thick fluid. Culture ordered. * 03/16 MRI scan ordered followed by IR drainage of popliteal cyst and joint effusion. Drain placed. * Echocardiogram with EF of 65-70%, grade 1 diastolic dysfunction, mild aortic stenosis, mitral valve with calcified annulus, mild pulmonary hypertension, no valvular vegetation noted. * 03/18 knee drain removal. (3) Leukocytosis: Qualifiers: Leukocytosis type: unspecified Qualified Code(s): D72.829 - Elevated white blood cell count, unspecified Code(s): D72.829 - Elevated white blood cell count, unspecified Status: Acute Assessment and Plan: * WBC elevated from 20.5 to 14.3 today * Stop vanc and start ancef * Source of infection appears to be bacteremia and septic joint * Trend labs (4) Acute metabolic encephalopathy: Code(s): G93.41 - Metabolic encephalopathy Status: Acute Assessment and Plan: * Seems to be confused at the moment * 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 * Oncology recommending follow-up in the office. * Trend mental status * Adjust therapy as indicated (5) Chronic kidney disease: Qualifiers: Chronic kidney disease stage: stage 3 (moderate) Chronic kidney disease stage 3 subtype: stage 3b (GFR 30-44) Qualified Code(s): N18.32 - Chronic kidney disease, stage 3b Code(s): N18.9 - Chronic kidney disease, unspecified Status: Chronic Assessment and Plan: * Stage 3 * Baseline creatinine appears to be 0.8-1.10 * Stable at this time * Avoid nephrotoxic medications * trend labs * Adjust therapy as indicated * Seems to be back to baseline (6) HTN (hypertension): Qualifiers:
--- NOTE | 2023-03-18 12:33 | PM.IMPN ---
Progress Note: A&P Assessment and Plan (1) Bacteremia: Code(s): R78.81 - Bacteremia Status: Acute Assessment and Plan: Patient presented to the ED on 03/09/2023 due to right knee pain. Patient describes the pain as a 10/10 intensity. Synovial fluid analysis revealing and MSSA Blood cultures Staphylococcus aureus, MSSA on 03/09/2023 Wound culture is Staph aureus, MSSA Stop vanc and start levaquin and ancef Repeat cultures on 03/11/2023 Grew staph aureus in one bottle Blood cultures drawn once again on 03/15/[address] PICC line with 4 weeks of IV antibiotics Will adjust therapy when appropriate (2) Septic arthritis of knee, right: Qualifiers: Septic arthritis organism: due to unspecified organism Qualified Code(s): M00.9 - Pyogenic arthritis, unspecified Code(s): M00.9 - Pyogenic arthritis, unspecified Status: Acute Assessment and Plan: POD 6 from right knee arthroscopic washout of [place] knee Xray indicates worsening effusion with possible cellulitis Gram stain positive for MSSA Blood cultures grew staph aureus, MSSA Stop vanc and start levaquin and ancef pain medications on board Ortho consulted and appreciate recommendations 03/15/23 patient had a white count that would not go down from approximately 20,000. Concern for ongoing infection. Ultrasound of the right knee demonstrated large suprapatellar effusion and large popliteal fossa fluid collection likely a popliteal cyst. Aspiration of the suprapatellar effusion performed removing 8 cc of bloody dark thick fluid. Culture ordered. 03/16 MRI scan ordered followed by IR drainage of popliteal cyst and joint effusion. Drain placed. Echocardiogram with EF of 65-70%, grade 1 diastolic dysfunction, mild aortic stenosis, mitral valve with calcified annulus, mild pulmonary hypertension, no valvular vegetation noted. 03/18 knee drain removal. (3) Leukocytosis: Qualifiers: Leukocytosis type: unspecified Qualified Code(s): D72.829 - Elevated white blood cell count, unspecified Code(s): D72.829 - Elevated white blood cell count, unspecified Status: Acute Assessment and Plan: WBC elevated from 20.5 to 14.3 today Stop vanc and start ancef Source of infection appears to be bacteremia and septic joint Trend labs (4) Acute metabolic encephalopathy: Code(s): G93.41 - Metabolic encephalopathy Status: Acute Assessment and Plan: Seems to be confused at the moment Head ct 1.3cm right orbital mass and 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 Oncology recommending follow-up in the office. Trend mental status Adjust therapy as indicated (5) Chronic kidney disease: Qualifiers: Chronic kidney disease stage: stage 3 (moderate) Chronic kidney disease stage 3 subtype: stage 3b (GFR 30-44) Qualified Code(s): N18.32 - Chronic kidney disease, stage 3b Code(s): N18.9 - Chronic kidney disease, unspecified Status: Chronic Assessment and Plan: Stage 3 Baseline creatinine appears to be 0.8-1.10 Stable at this time Avoid nephrotoxic medications trend labs Adjust therapy as indicated Seems to be back to baseline (6) HTN (hypertension): Qualifiers: Hypertension type: primary hypertension Qualified Code(s): I10 - Essential (primary) hypertension Code(s): I10 - Essential (primary) hypertension Status: Chronic Assessment and Plan: Continue home medications Trend BP adjust therapy as indicated (7) Orbital mass: Code(s): 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 Status: Acute Assessment and Plan: Incidental finding Noted on the CT, 1.3cm right sided does not appear to be symptomatic Consult oncology for
[2023-03-18] MEDS: CENTRAL LINE FLUSH 10 ML IV PUSH ×2 (13:41→21:39)
[2023-03-18] MEDS: ASPIRIN 81 MG ENTERIC TABLET PO (20:27)
[2023-03-18] MEDS: MONTELUKAST SODIUM 10 MG TABLET PO (20:27)
[2023-03-19] MEDS: oxyCODONE HCL (*CRX) 5 MG TAB IR PO ×6 (01:05→21:02)
[2023-03-19 05:28] VITALS: BP 150/58; PULSE 75; RESP 19; TEMP 36.6; O2SAT 93
[2023-03-19] MEDS: ceFAZolin 2 GM/D5W 50 ML 2 GM/50 ML BAG IVPB ×3 (05:37→21:02)
[2023-03-19] MEDS: CENTRAL LINE FLUSH 20 ML IV PUSH (05:38)
[2023-03-19] MEDS: CENTRAL LINE FLUSH 10 ML IV PUSH ×3 (05:38→21:03)
[2023-03-19 05:56] LABS: Basophils Absolute Auto 0.1 K/mm3 (0.0-0.1); Basophils Percent Auto 0.8 % (0.2-1.2); Eosinophils Absolute Auto 0.1 K/mm3 (0-0.3); Eosinophils Percent Auto 0.4 % (0-4.4); Hematocrit 27.1 % (37.0-47.0); Hemoglobin 8.6 g/dL (12.0-15.0); Immature Granulocyte Absolute 0.81 K/mm3 (0.00-0.031); Immature Granulocyte Percent A 5.9 % (0-0.5); Lymphocytes Absolute Auto 1.91 K/mm3 (0.9-3.2); Lymphocytes Percent Auto 13.9 % (18.3-44.2); Mean Corpuscular HGB Conc 31.7 g/dl (32-36); Mean Corpuscular Hemoglobin 27.5 pg (26-34); Mean Corpuscular Volume 86.6 fl (80-100); Mean Platelet Volume 9.4 fl (7.4-10.4); Monocytes Absolute Auto 1.6 K/mm3 (0.1-0.6); Monocytes Percent Auto 11.8 % (2.6-8.5); Neutrophils Absolute Auto 9.3 K/mm3 (1.3-6.7); Neutrophils Percent Auto 67.2 % (45.5-73.1); Platelet Count Result 566 k/mm3 (150-375); Red Blood Count 3.13 M/mm3 (4.2-5.4); Red Cell Distribution Width 14.6 % (11.5-14.5); White Blood Count 13.8 K/mm3 (4.5-10.0)
[2023-03-19 06:10] LABS: Alanine Aminotransferase 10 U/L (6-35); Albumin Level 2.8 g/dL (3.5-5.1); Alkaline Phosphatase 91 U/L (38-126); Aspartate Amino Transferase 27 U/L (14-36); Bilirubin,Total 0.7 mg/dL (0.2-1.3); Blood Urea Nitrogen 16 mg/dL (7-17); Calcium 7.8 mg/dL (8.4-10.2); Carbon Dioxide > 40 mmol/L (22-30); Chloride 89 mmol/L (98-107); Estimated CRCL calculation 52 ml/min; Estimated Glomerular Filt Rate > 60; Glucose 106 mg/dL (65-110); Potassium 3.7 mmol/L (3.4-5.0); Sodium 128 mmol/L (137-145)
[2023-03-19 06:41] LABS: Hypochromasia 1+ (NORMAL); Platelet Estimate Increased (Adequate)
[2023-03-19 06:42] LABS: Anisocytosis 1+ (NORMAL); Schistocytes Rare (NORMAL)
[2023-03-19] MEDS: FLUTICASONE/SALMETEROL 230-21 MCG INHALER 1 PUFF 2 PUFF INHALATION ×2 (07:55→20:24)
[2023-03-19 07:59] VITALS: O2SAT 92
[2023-03-19] MEDS: CITALOPRAM HYDROBROMIDE 20 MG TABLET PO (08:59)
[2023-03-19] MEDS: PANTOPRAZOLE 40 MG TABLET PO (09:00)
[2023-03-19] MEDS: ENOXAPARIN 30 MG/0.3 ML SYRINGE SUB-Q ×2 (09:00→21:02)
[2023-03-19] MEDS: FAMOTIDINE 20 MG TABLET PO ×2 (09:00→21:02)
[2023-03-19] MEDS: hydroCHLOROthiazide 12.5 MG CAPSULE PO (09:00)
--- NOTE | 2023-03-19 11:10 | PCPTNOTE ---
Attempted to see patient for PT, however patient refused due to increase pain in right knee. Patient just got done working with OT and reported pain in right knee.
--- NOTE | 2023-03-19 13:27 | PM.PNORT ---
Progress Note: A&P Assessment and Plan (1) Septic arthritis of knee, right: Qualifiers: Septic arthritis organism: due to unspecified organism Qualified Code(s): M00.9 - Pyogenic arthritis, unspecified Code(s): M00.9 - Pyogenic arthritis, unspecified Status: Acute Assessment and Plan: Patient is now postop day 8. After arthroscopic lavage and debridement right knee for subacute oxacillin still sensitive Staph aureus septic arthritis. She remains alert and oriented. She has not had confusion for several days. Her pain control at rest is much better on the oxycodone 5 mg every 4 hours. I would like to add Tylenol to that as well 650 mg Q 6 hours scheduled. Her white count is further down today 13.8. It has dropped every day consistently for the last 5 days. Clinically her knee shows mild effusion moderate parapatellar tenderness no erythema or warmth skin is supple without edema no calf tenderness or swelling. She wiggles her toes and ankle up and down without difficulty. She is not able to put full weight on the right leg or put her weight on it with the foot flat. I think it is difficult for her to extend her knee well enough to do this. Incisions are dry and intact with sutures in place which will be removed on the [address] Padron's office. She had been on Naprosyn 500 mg twice daily before this problem started. Her creatinine was 1.1 on admission. Was 1.1 in August as well. Because of elevated creatinine it was recommended that nonsteroidal anti-inflammatory medications be avoided and her creatinine has diminished to 0.7 now. Her creatinine clearance is 52. Unfortunately, I suspect her severe [id number] arthritis symptoms were partially controlled with the naproxen and now she does not have that to help provide pain control which has exacerbated pain control problem in her case. Hopefully at some point non steroidal anti-inflammatory medication can be re-initiated. She has low red cell hemoglobin concentration borderline microcytic anemia and her hemoglobin hours at 8.5. Her iron is very low at 23 her TIBC is low at 203 and saturation 11%. Her ferritin is elevated and this is likely a direct result of the sepsis and septic arthritis from Staph aureus. After communication with the hospitalist we will order 100 mg IV iron venafor today and for the next 2 days. I reviewed her cultures . Aspiration from knee joint which I did on grew light growth Staph aureus. Aspiration from the small amount of fluid in the popliteal fossa cyst on the grew light growth Staph aureus and both blood cultures from the are no growth to date. Impression: It seems that she is continuing to improve. There is a chance that the infection could persist necessitating further debridement of the knee joint and of the infection in the posterior knee the latter would require posterior surgical approach to the popliteal fossa. The clinical indicators suggest continued improvement and I would recommend continuing with the Ancef. After communication with the pharmacist yesterday it was determined that Ancef 2 g q.12 hours would be appropriate for her and q.12 hours be the most frequent the rehabilitation center where she is going would be able to administer IV fluids. We discussed the option of ceftriaxone Q 24 hours but the Infectious Disease pharmacist felt that the NICK was not optimal for ceftriaxone treatment for her particular Staph aureus strain. Patient has instructions and the discharge instructions section of the discharge summary that request that she follow-up with Dr. Aleman on March 25 for suture removal. I would recommend continuing with the Lovenox 40 mg daily for DVT prophylaxis as she is at some increased risk for DVT due to the fact that she is of advanced age and her mobility is significantly diminished. 1 hour was spent in total care this patient today. Subjective Subjective Date/Time Seen: 0
--- NOTE | 2023-03-19 14:18 | PCPTNOTE ---
Patient refused treatment this session due to pain. Educated patient on the importance of therapy and patient continued to refuse.
[2023-03-19 14:23] VITALS: BP 120/48; PULSE 87; RESP 19; TEMP 36.6; O2SAT 92
[2023-03-19] MEDS: IRON SUCROSE COMPLEX 100 MG in SODIUM CHLORIDE 0.9% IV 50 ML 220 MG IVPB (14:49)
--- NOTE | 2023-03-19 15:18 | PM.IMPN ---
Progress Note: A&P Assessment and Plan (1) Bacteremia: Code(s): R78.81 - Bacteremia Status: Acute Assessment and Plan: Patient presented to the ED on 03/09/2023 due to right knee pain. Patient describes the pain as a 10/10 intensity. Synovial fluid analysis revealing and MSSA Blood cultures Staphylococcus aureus, MSSA on 03/09/2023 Wound culture is Staph aureus, MSSA Stop vanc and start levaquin and ancef Repeat cultures on 03/11/2023 Grew staph aureus in one bottle Blood cultures drawn once again on 03/15/[address] PICC line with 4 weeks of IV antibiotics Will adjust therapy when appropriate If patient continues to do well she will likely be able to discharge tomorrow. (2) Septic arthritis of knee, right: Qualifiers: Septic arthritis organism: due to unspecified organism Qualified Code(s): M00.9 - Pyogenic arthritis, unspecified Code(s): M00.9 - Pyogenic arthritis, unspecified Status: Acute Assessment and Plan: POD 6 from right knee arthroscopic washout of [place] knee Xray indicates worsening effusion with possible cellulitis Gram stain positive for MSSA Blood cultures grew staph aureus, MSSA Stop vanc and start levaquin and ancef pain medications on board Ortho consulted and appreciate recommendations 03/15/23 patient had a white count that would not go down from approximately 20,000. Concern for ongoing infection. Ultrasound of the right knee demonstrated large suprapatellar effusion and large popliteal fossa fluid collection likely a popliteal cyst. Aspiration of the suprapatellar effusion performed removing 8 cc of bloody dark thick fluid. Culture ordered. 03/16 MRI scan ordered followed by IR drainage of popliteal cyst and joint effusion. Drain placed. Echocardiogram with EF of 65-70%, grade 1 diastolic dysfunction, mild aortic stenosis, mitral valve with calcified annulus, mild pulmonary hypertension, no valvular vegetation noted. 03/18 knee drain removal. (3) Leukocytosis: Qualifiers: Leukocytosis type: unspecified Qualified Code(s): D72.829 - Elevated white blood cell count, unspecified Code(s): D72.829 - Elevated white blood cell count, unspecified Status: Acute Assessment and Plan: WBC elevated from 20.5 to 14.3 today Stop vanc and start ancef Source of infection appears to be bacteremia and septic joint Trend labs (4) Acute metabolic encephalopathy: Code(s): G93.41 - Metabolic encephalopathy Status: Acute Assessment and Plan: Seems to be confused at the moment Head ct 1.3cm right orbital mass and 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 Oncology recommending follow-up in the office. Trend mental status Adjust therapy as indicated (5) Chronic kidney disease: Qualifiers: Chronic kidney disease stage: stage 3 (moderate) Chronic kidney disease stage 3 subtype: stage 3b (GFR 30-44) Qualified Code(s): N18.32 - Chronic kidney disease, stage 3b Code(s): N18.9 - Chronic kidney disease, unspecified Status: Chronic Assessment and Plan: Stage 3 Baseline creatinine appears to be 0.8-1.10 Stable at this time Avoid nephrotoxic medications trend labs Adjust therapy as indicated Seems to be back to baseline (6) HTN (hypertension): Qualifiers: Hypertension type: primary hypertension Qualified Code(s): I10 - Essential (primary) hypertension Code(s): I10 - Essential (primary) hypertension Status: Chronic Assessment and Plan: Continue home medications Trend BP adjust therapy as indicated (7) Orbital mass: Code(s): 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 Status: Acute Assessment and Plan: Incidental finding Noted on the
--- NOTE | 2023-03-19 15:18 | P.PNIM_ITS ---
Progress Note: A&P Assessment and Plan (1) Bacteremia: Code(s): R78.81 - Bacteremia Status: Acute Assessment and Plan: Patient presented to the ED on 03/09/2023 due to right knee pain. Patient describes the pain as a 10/10 intensity. * Synovial fluid analysis revealing and MSSA * Blood cultures Staphylococcus aureus, MSSA on 03/09/2023 * Wound culture is Staph aureus, MSSA * Stop vanc and start levaquin and ancef * Repeat cultures on 03/11/2023 Grew staph aureus in one bottle * Blood cultures drawn once again on 03/15/2023 NGTD * Place PICC line with 4 weeks of IV antibiotics * Will adjust therapy when appropriate * If patient continues to do well she will likely be able to discharge tomorrow. (2) Septic arthritis of knee, right: Qualifiers: Septic arthritis organism: due to unspecified organism Qualified Code(s): M00.9 - Pyogenic arthritis, unspecified Code(s): M00.9 - Pyogenic arthritis, unspecified Status: Acute Assessment and Plan: * POD 6 from right knee arthroscopic washout of [place] knee * Xray indicates worsening effusion with possible cellulitis * Gram stain positive for MSSA * Blood cultures grew staph aureus, MSSA * Stop vanc and start levaquin and ancef * pain medications on board * Ortho consulted and appreciate recommendations * 03/15/23 patient had a white count that would not go down from approximately 20,000. Concern for ongoing infection. Ultrasound of the right knee demonstrated large suprapatellar effusion and large popliteal fossa fluid collection likely a popliteal cyst. * Aspiration of the suprapatellar effusion performed removing 8 cc of bloody dark thick fluid. Culture ordered. * 03/16 MRI scan ordered followed by IR drainage of popliteal cyst and joint effusion. Drain placed. * Echocardiogram with EF of 65-70%, grade 1 diastolic dysfunction, mild aortic stenosis, mitral valve with calcified annulus, mild pulmonary hypertension, no valvular vegetation noted. * 03/18 knee drain removal. (3) Leukocytosis: Qualifiers: Leukocytosis type: unspecified Qualified Code(s): D72.829 - Elevated white blood cell count, unspecified Code(s): D72.829 - Elevated white blood cell count, unspecified Status: Acute Assessment and Plan: * WBC elevated from 20.5 to 14.3 today * Stop vanc and start ancef * Source of infection appears to be bacteremia and septic joint * Trend labs (4) Acute metabolic encephalopathy: Code(s): G93.41 - Metabolic encephalopathy Status: Acute Assessment and Plan: * Seems to be confused at the moment * 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 * Oncology recommending follow-up in the office. * Trend mental status * Adjust therapy as indicated (5) Chronic kidney disease: Qualifiers: Chronic kidney disease stage: stage 3 (moderate) Chronic kidney disease stage 3 subtype: stage 3b (GFR 30-44) Qualified Code(s): N18.32 - Chronic kidney disease, stage 3b Code(s): N18.9 - Chronic kidney disease, unspecified Status: Chronic Assessment and Plan: * Stage 3 * Baseline creatinine appears to be 0.8-1.10 * Stable at this time * Avoid nephrotoxic medications * trend labs * Adjust therapy as indicated * Seems to be back to baseline
[2023-03-19] MEDS: ACETAMINOPHEN 325 MG TABLET 650 MG PO (18:25)
[2023-03-19 21:00] VITALS: PULSE 87; RESP 19; O2SAT 92
[2023-03-19] MEDS: ASPIRIN 81 MG ENTERIC TABLET PO (21:02)
[2023-03-19] MEDS: MONTELUKAST SODIUM 10 MG TABLET PO (21:02)
[2023-03-19 22:00] VITALS: BP 109/33; PULSE 72; RESP 18; TEMP 37.1; O2SAT 90
[2023-03-20] MEDS: ACETAMINOPHEN 325 MG TABLET 650 MG PO ×4 (00:39→18:40)
[2023-03-20] MEDS: oxyCODONE HCL (*CRX) 5 MG TAB IR PO ×7 (00:39→23:33)
[2023-03-20] MEDS: CENTRAL LINE FLUSH 10 ML IV PUSH ×3 (05:25→21:43)
[2023-03-20] MEDS: ceFAZolin 2 GM/D5W 50 ML 2 GM/50 ML BAG IVPB ×3 (05:25→21:42)
[2023-03-20] MEDS: CENTRAL LINE FLUSH 20 ML IV PUSH (05:25)
[2023-03-20 05:44] LABS: Basophils Absolute Auto 0.1 K/mm3 (0.0-0.1); Eosinophils Absolute Auto 0.1 K/mm3 (0-0.3); Eosinophils Percent Auto 0.6 % (0-4.4); Hematocrit 25.2 % (37.0-47.0); Hemoglobin 7.9 g/dL (12.0-15.0); Immature Granulocyte Percent A 5.9 % (0-0.5); Lymphocytes Absolute Auto 2.28 K/mm3 (0.9-3.2); Lymphocytes Percent Auto 16.9 % (18.3-44.2); Mean Corpuscular HGB Conc 31.3 g/dl (32-36); Mean Corpuscular Hemoglobin 27.2 pg (26-34); Mean Corpuscular Volume 86.9 fl (80-100); Mean Platelet Volume 9.8 fl (7.4-10.4); Monocytes Absolute Auto 1.5 K/mm3 (0.1-0.6); Monocytes Percent Auto 11.1 % (2.6-8.5); Neutrophils Absolute Auto 8.7 K/mm3 (1.3-6.7); Neutrophils Percent Auto 64.5 % (45.5-73.1); Platelet Count Result 544 k/mm3 (150-375); Red Cell Distribution Width 14.6 % (11.5-14.5); White Blood Count 13.5 K/mm3 (4.5-10.0)
[2023-03-20 05:56] LABS: Alanine Aminotransferase 10 U/L (6-35); Albumin Level 2.6 g/dL (3.5-5.1); Alkaline Phosphatase 89 U/L (38-126); Aspartate Amino Transferase 27 U/L (14-36); Bilirubin,Total 0.6 mg/dL (0.2-1.3); Blood Urea Nitrogen 14 mg/dL (7-17); Calcium 7.7 mg/dL (8.4-10.2); Carbon Dioxide > 40 mmol/L (22-30); Chloride 89 mmol/L (98-107); Estimated CRCL calculation 52 ml/min; Estimated Glomerular Filt Rate > 60; Glucose 101 mg/dL (65-110); Potassium 3.4 mmol/L (3.4-5.0); Sodium 128 mmol/L (137-145)
[2023-03-20 06:00] VITALS: BP 122/49; PULSE 61; RESP 18; TEMP 37.1; O2SAT 93
[2023-03-20 07:29] LABS: Hypochromasia 1+ (NORMAL); Platelet Estimate Increased (Adequate); Schistocytes None Seen (NORMAL)
[2023-03-20] MEDS: FLUTICASONE/SALMETEROL 230-21 MCG INHALER 1 PUFF 2 PUFF INHALATION ×2 (08:01→20:54)
[2023-03-20] MEDS: FAMOTIDINE 20 MG TABLET PO ×2 (08:37→21:41)
[2023-03-20] MEDS: CITALOPRAM HYDROBROMIDE 20 MG TABLET PO (08:37)
[2023-03-20] MEDS: ENOXAPARIN 30 MG/0.3 ML SYRINGE SUB-Q ×2 (08:37→21:43)
[2023-03-20] MEDS: IRON SUCROSE COMPLEX 100 MG in SODIUM CHLORIDE 0.9% IV 50 ML 220 MG IVPB (08:45)
[2023-03-20] MEDS: PANTOPRAZOLE 40 MG TABLET PO (09:52)
--- NOTE | 2023-03-20 12:01 | PM.IMPN ---
Progress Note: A&P Assessment and Plan (1) Bacteremia: Code(s): R78.81 - Bacteremia Status: Acute Assessment and Plan: Patient presented to the ED on 03/09/2023 due to right knee pain. Patient describes the pain as a 10/10 intensity. Synovial fluid analysis revealing and MSSA Blood cultures Staphylococcus aureus, MSSA on 03/09/2023 Wound culture is Staph aureus, MSSA Stop vanc and start ancef Repeat cultures on 03/11/2023 Grew staph aureus in one bottle Blood cultures drawn once again on 03/15/[address] PICC line with 4 weeks of IV ancef q12 hr If patient continues to do well she will likely be able to discharge tomorrow after iron infusion is completed. (2) Septic arthritis of knee, right: Qualifiers: Septic arthritis organism: due to unspecified organism Qualified Code(s): M00.9 - Pyogenic arthritis, unspecified Code(s): M00.9 - Pyogenic arthritis, unspecified Status: Acute Assessment and Plan: Pt had right knee arthroscopic washout of [place] knee on 03/11/23 X-ray indicates worsening effusion with possible cellulitis Gram stain positive for MSSA Blood cultures grew staph aureus, MSSA Stop vanc and start Ancef pain medications on board Ortho consulted and appreciate recommendations 03/15/23 patient had a white count that would not go down from approximately 20,000. Concern for ongoing infection. Ultrasound of the right knee demonstrated large suprapatellar effusion and large popliteal fossa fluid collection likely a popliteal cyst. Aspiration of the suprapatellar effusion performed removing 8 cc of bloody dark thick fluid. Culture positive for staph aureus. 03/16 MRI scan ordered followed by IR drainage of popliteal cyst and joint effusion. Drain placed. Echocardiogram with EF of 65-70%, grade 1 diastolic dysfunction, mild aortic stenosis, mitral valve with calcified annulus, mild pulmonary hypertension, no valvular vegetation noted. 03/18 knee drain removal. Repeat blood cultures negative (3) Leukocytosis: Qualifiers: Leukocytosis type: unspecified Qualified Code(s): D72.829 - Elevated white blood cell count, unspecified Code(s): D72.829 - Elevated white blood cell count, unspecified Status: Acute Assessment and Plan: WBC elevated from 20.5 to 13.5 today Stop vanc and start ancef Source of infection appears to be bacteremia and septic joint Trend labs (4) Acute metabolic encephalopathy: Code(s): G93.41 - Metabolic encephalopathy Status: Acute Assessment and Plan: Seems to be confused at the moment Head ct 1.3cm right orbital mass and 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 Oncology recommending follow-up in the office. Trend mental status Adjust therapy as indicated (5) Chronic kidney disease: Qualifiers: Chronic kidney disease stage: stage 3 (moderate) Chronic kidney disease stage 3 subtype: stage 3b (GFR 30-44) Qualified Code(s): N18.32 - Chronic kidney disease, stage 3b Code(s): N18.9 - Chronic kidney disease, unspecified Status: Chronic Assessment and Plan: Stage 3 Baseline creatinine appears to be 0.8-1.10 Stable at this time Avoid nephrotoxic medications trend labs Adjust therapy as indicated Seems to be back to baseline (6) HTN (hypertension): Qualifiers: Hypertension type: primary hypertension Qualified Code(s): I10 - Essential (primary) hypertension Code(s): I10 - Essential (primary) hypertension Status: Chronic Assessment and Plan: Continue home medications Trend BP adjust therapy as indicated (7) Orbital mass: Code(s): 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 Status: Acute Assessment and Plan: Incide
--- NOTE | 2023-03-20 12:01 | P.PNIM_ITS ---
Progress Note: A&P Assessment and Plan (1) Bacteremia: Code(s): R78.81 - Bacteremia Status: Acute Assessment and Plan: Patient presented to the ED on 03/09/2023 due to right knee pain. Patient describes the pain as a 10/10 intensity. * Synovial fluid analysis revealing and MSSA * Blood cultures Staphylococcus aureus, MSSA on 03/09/2023 * Wound culture is Staph aureus, MSSA * Stop vanc and start ancef * Repeat cultures on 03/11/2023 Grew staph aureus in one bottle * Blood cultures drawn once again on 03/15/2023 NGTD * Place PICC line with 4 weeks of IV ancef q12 hr * If patient continues to do well she will likely be able to discharge tomorrow after iron infusion is completed. (2) Septic arthritis of knee, right: Qualifiers: Septic arthritis organism: due to unspecified organism Qualified Code(s): M00.9 - Pyogenic arthritis, unspecified Code(s): M00.9 - Pyogenic arthritis, unspecified Status: Acute Assessment and Plan: Pt had right knee arthroscopic washout of [place] knee on 03/11/23 * X-ray indicates worsening effusion with possible cellulitis * Gram stain positive for MSSA * Blood cultures grew staph aureus, MSSA * Stop vanc and start Ancef * pain medications on board * Ortho consulted and appreciate recommendations * 03/15/23 patient had a white count that would not go down from approximately 20,000. Concern for ongoing infection. Ultrasound of the right knee demonstrated large suprapatellar effusion and large popliteal fossa fluid collection likely a popliteal cyst. * Aspiration of the suprapatellar effusion performed removing 8 cc of bloody dark thick fluid. Culture positive for staph aureus. * 03/16 MRI scan ordered followed by IR drainage of popliteal cyst and joint effusion. Drain placed. * Echocardiogram with EF of 65-70%, grade 1 diastolic dysfunction, mild aortic stenosis, mitral valve with calcified annulus, mild pulmonary hypertension, no valvular vegetation noted. * 03/18 knee drain removal. * Repeat blood cultures negative (3) Leukocytosis: Qualifiers: Leukocytosis type: unspecified Qualified Code(s): D72.829 - Elevated white blood cell count, unspecified Code(s): D72.829 - Elevated white blood cell count, unspecified Status: Acute Assessment and Plan: * WBC elevated from 20.5 to 13.5 today * Stop vanc and start ancef * Source of infection appears to be bacteremia and septic joint * Trend labs (4) Acute metabolic encephalopathy: Code(s): G93.41 - Metabolic encephalopathy Status: Acute Assessment and Plan: * Seems to be confused at the moment * 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 * Oncology recommending follow-up in the office. * Trend mental status * Adjust therapy as indicated (5) Chronic kidney disease: Qualifiers: Chronic kidney disease stage: stage 3 (moderate) Chronic kidney disease stage 3 subtype: stage 3b (GFR 30-44) Qualified Code(s): N18.32 - Chronic ki dney disease, stage 3b Code(s): N18.9 - Chronic kidney disease, unspecified Status: Chronic Assessment and Plan: * Stage 3 * Baseline creatinine appears to be 0.8-1.10 * Stable at this time * Avoid nephrotoxic medications * trend labs * Adjust therapy as indicated * Seems to b
[2023-03-20 14:07] VITALS: BP 110/59; PULSE 68; RESP 18; TEMP 36.6; O2SAT 93
[2023-03-20 20:10] VITALS: BP 120/44; PULSE 69; RESP 18; TEMP 36.4; O2SAT 94
[2023-03-20 20:50] VITALS: O2SAT 92
[2023-03-20] MEDS: ASPIRIN 81 MG ENTERIC TABLET PO (21:41)
[2023-03-20] MEDS: MONTELUKAST SODIUM 10 MG TABLET PO (21:41)
[2023-03-21] MEDS: oxyCODONE HCL (*CRX) 5 MG TAB IR PO ×4 (01:22→13:58)
[2023-03-21] MEDS: ACETAMINOPHEN 325 MG TABLET 650 MG PO ×3 (01:22→12:22)
[2023-03-21 05:07] LABS: Hematocrit 24.9 % (37.0-47.0); Hemoglobin 7.9 g/dL (12.0-15.0); Mean Corpuscular HGB Conc 31.7 g/dl (32-36); Mean Corpuscular Hemoglobin 27.9 pg (26-34); Mean Platelet Volume 9.6 fl (7.4-10.4); Platelet Count Result 568 k/mm3 (150-375); Red Blood Count 2.83 M/mm3 (4.2-5.4); Red Cell Distribution Width 14.6 % (11.5-14.5); White Blood Count 12.2 K/mm3 (4.5-10.0)
[2023-03-21 05:29] LABS: Alanine Aminotransferase 9 U/L (6-35); Albumin Level 2.5 g/dL (3.5-5.1); Alkaline Phosphatase 89 U/L (38-126); Aspartate Amino Transferase 31 U/L (14-36); Bilirubin,Total 0.5 mg/dL (0.2-1.3); Blood Urea Nitrogen 14 mg/dL (7-17); Calcium 7.5 mg/dL (8.4-10.2); Carbon Dioxide > 40 mmol/L (22-30); Chloride 91 mmol/L (98-107); Estimated CRCL calculation 52 ml/min; Estimated Glomerular Filt Rate > 60; Glucose 97 mg/dL (65-110); Potassium 3.3 mmol/L (3.4-5.0); Sodium 131 mmol/L (137-145)
[2023-03-21] MEDS: CENTRAL LINE FLUSH 20 ML IV PUSH (05:31)
[2023-03-21] MEDS: CENTRAL LINE FLUSH 10 ML IV PUSH ×2 (05:31→14:00)
[2023-03-21] MEDS: ceFAZolin 2 GM/D5W 50 ML 2 GM/50 ML BAG IVPB ×2 (05:31→13:59)
[2023-03-21 05:37] LABS: CRP 14.6 mg/dL (<1.0)
[2023-03-21 05:56] LABS: Eosinophils Absolute Manual 0.12 K/mm3 (0.02-0.5); Eosinophils Percent Manual 1 % (0-4); Hypochromasia 1+ (NORMAL); Lymphocytes Absolute Manual 1.46 K/mm3 (1.1-4.5); Lymphocytes Percent Manual 12 % (18-44); Metamyelocytes Percent 3 %; Monocytes Absolute Manual 1.09 K/mm3 (0.1-0.90); Monocytes Percent Manual 9 % (3-9); Neutrophils Percent Manual 75 % (46-73); Platelet Estimate Increased (Adequate); Schistocytes None Seen (NORMAL); Total Cells Counted 100
[2023-03-21 06:00] VITALS: BP 125/50; PULSE 65; RESP 18; TEMP 36.6; O2SAT 92
[2023-03-21] MEDS: FLUTICASONE/SALMETEROL 230-21 MCG INHALER 1 PUFF 2 PUFF INHALATION (07:20)
[2023-03-21 07:23] VITALS: O2SAT 91
--- NOTE | 2023-03-21 08:14 | PM.PNORT ---
Progress Note: A&P Assessment and Plan (1) Septic arthritis of knee, right: Qualifiers: Septic arthritis organism: due to unspecified organism Qualified Code(s): M00.9 - Pyogenic arthritis, unspecified Code(s): M00.9 - Pyogenic arthritis, unspecified Status: Acute Assessment and Plan: 83-year-old female who seems to be turning the corner with respect to her right knee. As far as the cefazolin, this should probably run for four weeks from the time it was begun. Her sutures will need to be removed about five days. She can be weight-bearing as tolerated using a walker but I think that her recovery is going to be exceedingly slow. She and I discussed this in detail today. I would like to see her in the office about six weeks to see how she is getting along. We discussed also knee replacement and I think that she should hold off for probably a couple of years before considering this because of the nature of the infection that she has experience with this knee. Subjective Subjective Date/Time Seen: 03/21/23 08:14 Post Op day: 10 Principal diagnosis: Septic right knee Interval history: 83-year-old female who is postop day 10 arthroscopic washout septic right knee. Not much drainage had come out initially. A drain was DC. Drain was reintroduced by Radiology which also did not draw months out. Organism growing is MSSA and she is currently on Ancef through her PICC line. She has improved considerably from when I last saw her. Review of Systems Review of Systems: All systems reviewed & are unremarkable except as noted in HPI and below Exam Const: General: cooperative and no acute distress GI: Inspection: non-distended Extrem: Other: Right knee incisions are clean and dry. Very little irritability to palpation about the knee. No significant swelling in the suprapatellar pouch. No Cerna cyst palpable. Does have irritability with range of motion of the knee with marked crepitus. Cannot extend beyond about -20 degrees which is about what was seen in the operating room. Grossly motor and sensory function intact right lower extremity. Objective Data Vital Signs Vital Signs: Vital Signs - 24 hr 03/20/23 08:35 03/20/23 14:07 03/20/23 20:10 Temperature 97.8 F 97.5 F L Pulse Rate 68 69 Respiratory Rate 18 18 Blood Pressure 110/59 L 120/44 L Pulse Oximetry 93 94 Oxygen Delivery Room Air 03/20/23 20:50 03/20/23 21:30 03/21/23 06:00 Temperature 97.9 F Pulse Rate 65 Respiratory Rate 18 Blood Pressure 125/50 L Pulse Oximetry 92 92 Oxygen Delivery Room Air Room Air 03/21/23 07:23 Temperature Pulse Rate Respiratory Rate Blood Pressure Pulse Oximetry 91 Oxygen Delivery Room Air Intake/Output Intake/Output: Intake & Output 03/18/23 03/19/23 03/20/23 03/21/23 23:59 23:59 23:59 23:59 Intake Total 2155 / 2155 1385 / 1385 645 / 645 390 / 390 Output Total 1052 / 1052 950 / 950 175 / 175 200 / 200 Balance 1103 / 1103 435 / 435 470 / 470 190 / 190 Meds/Results Medications: Active Medications Generic Name Dose Route Start Last Admin Trade Name Freq PRN Reason Stop Dose Admin Acetaminophen 650 mg 03/19/23 18:00 03/21/23 05:30 Acetaminophen 325 Mg Tablet PO 650 mg Q6HR GUILLERMO Administration Aspirin 81 mg 03/09/23 21:00 03/20/23 21:41 Aspirin 81 Mg Enteric Tablet PO 04/09/23 20:59 81 mg HS GUILLERMO Administration Bisacodyl 10 mg 03/14/23 13:27 03/15/23 07:55 Bisacodyl 5 Mg Tablet Ec PO 10 mg DAILY PRN Administration Constipation Calcium Carbonate 500 mg 03/10/23 09:00 03/20/23 08:36 Calcium/Vitamin D 500 Mg Tablet PO 500 mg QAM GUILLERMO Administration Citalopram Hydrobromide 20 mg 03/10/23 09:00 03/20/23 08:37 Citalopram Hydrobromide 20 Mg Tablet PO 20 mg DAILY GUILLERMO Administration Diphenhydramine HCl 25 mg 03/09/23 18:35 03/09/23 18:48 Diphenhydramine Hcl Cap 25 Mg Capsule PO 25 mg
[2023-03-21] MEDS: POTASSIUM CHLORIDE 20 MEQ TABLET 40 MEQ PO (09:57)
[2023-03-21] MEDS: CITALOPRAM HYDROBROMIDE 20 MG TABLET PO (09:58)
[2023-03-21] MEDS: FAMOTIDINE 20 MG TABLET PO (09:59)
[2023-03-21] MEDS: PANTOPRAZOLE 40 MG TABLET PO (10:00)
[2023-03-21] MEDS: ENOXAPARIN 30 MG/0.3 ML SYRINGE SUB-Q (10:01)
[2023-03-21] MEDS: IRON SUCROSE COMPLEX 100 MG in SODIUM CHLORIDE 0.9% IV 50 ML 220 MG IVPB (10:08)
--- NOTE | 2023-03-21 11:11 | P.DS_ITS ---
DS: Admitting Diagnosis Discharge Date 03/21/23 Admitting Diagnosis Septic joint DS: Discharge Diagnosis Discharge Diagnosis (1) Bacteremia: Code(s): R78.81 - Bacteremia Status: Acute Assessment and Plan: Patient presented to the ED on 03/09/2023 due to right knee pain. Patient desc ribes the pain as a 10/10 intensity. * Synovial fluid analysis revealing and MSSA * Blood cultures Staphylococcus aureus, MSSA on 03/09/2023 * Wound culture is Staph aureus, MSSA * Stop vanc and start ancef * Repeat cultures on 03/11/2023 Grew staph aureus in one bottle * Blood cultures drawn once again on 03/15/2023 and are negative. * Place PICC line with 4 weeks of IV ancef q12 hr (2) Septic arthritis of knee, right: Qualifiers: Septic arthritis organism: due to unspecified organism Qualified Code(s): M00.9 - Pyogenic arthritis, unspecified Code(s): M00.9 - Pyogenic arthritis, unspecified Status: Acute Assessment and Plan: Pt had right knee arthroscopic washout of [place] knee on 03/11/23 * X-ray indicates worsening effusion with possible cellulitis * Gram stain positive for MSSA * Blood cultures grew staph aureus, MSSA * Stop vanc and start Ancef * pain medications on board * Ortho consulted and appreciate recommendations * 03/15/23 patient had a white count that would not go down from approximately 20,000. Concern for ongoing infection. Ultrasound of the right knee demonstrated large suprapatellar effusion and large popliteal fossa fluid collection likely a popliteal cyst. * Aspiration of the suprapatellar effusion performed removing 8 cc of bloody dark thick fluid. Culture positive for staph aureus. * 03/16 MRI scan ordered followed by IR drainage of popliteal cyst and joint effusion. Drain placed. * Echocardiogram with EF of 65-70%, grade 1 diastolic dysfunction, mild aortic stenosis, mitral valve with calcified annulus, mild pulmonary hypertension, no valvular vegetation noted. * 03/18 knee drain removal. * Repeat blood cultures negative (3) Leukocytosis: Qualifiers: Leukocytosis type: unspecified Qualified Code(s): D72.829 - Elevated white blood cell count, unspecified Code(s): D72.829 - Elevated white blood cell count, unspecified Status: Acute Assessment and Plan: * WBC elevated from 20.5 to 12.2 * Stop vanc and start ancef * Source of infection appears to be bacteremia and septic joint * Trend labs (4) Acute metabolic encephalopathy: Code(s): G93.41 - Metabolic encephalopathy Status: Acute Assessment and Plan: * Seems to be confused at the moment * 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 * Oncology recommending follow-up in the office. * Trend mental status * Adjust therapy as indicated (5) Chronic kidney disease: Qualifiers: Chronic kidney disease stage: stage 3 (moderate) Chronic kidney disease stage 3 subtype: stage 3b (GFR 30-44) Qualified Code(s): N18.32 - Chronic kidney disease, stage 3b Code(s): N18.9 - Chronic kidney disease, unspecified Status: Chronic Assessment and Plan: * Stage 3 * Baseline creatinine appears to be 0.8-1.10 * Stable at this time * Avoid nephrotoxic medications * trend labs * Adjust therapy as indicated * Seem
--- NOTE | 2023-03-21 11:11 | PM.DS ---
DS: Admitting Diagnosis Discharge Date 03/21/23 Admitting Diagnosis Septic joint DS: Discharge Diagnosis Discharge Diagnosis (1) Bacteremia: Code(s): R78.81 - Bacteremia Status: Acute Assessment and Plan: Patient presented to the ED on 03/09/2023 due to right knee pain. Patient describes the pain as a 10/10 intensity. Synovial fluid analysis revealing and MSSA Blood cultures Staphylococcus aureus, MSSA on 03/09/2023 Wound culture is Staph aureus, MSSA Stop vanc and start ancef Repeat cultures on 03/11/2023 Grew staph aureus in one bottle Blood cultures drawn once again on 03/15/[address] PICC line with 4 weeks of IV ancef q12 hr (2) Septic arthritis of knee, right: Qualifiers: Septic arthritis organism: due to unspecified organism Qualified Code(s): M00.9 - Pyogenic arthritis, unspecified Code(s): M00.9 - Pyogenic arthritis, unspecified Status: Acute Assessment and Plan: Pt had right knee arthroscopic washout of [place] knee on 03/11/23 X-ray indicates worsening effusion with possible cellulitis Gram stain positive for MSSA Blood cultures grew staph aureus, MSSA Stop vanc and start Ancef pain medications on board Ortho consulted and appreciate recommendations 03/15/23 patient had a white count that would not go down from approximately 20,000. Concern for ongoing infection. Ultrasound of the right knee demonstrated large suprapatellar effusion and large popliteal fossa fluid collection likely a popliteal cyst. Aspiration of the suprapatellar effusion performed removing 8 cc of bloody dark thick fluid. Culture positive for staph aureus. 03/16 MRI scan ordered followed by IR drainage of popliteal cyst and joint effusion. Drain placed. Echocardiogram with EF of 65-70%, grade 1 diastolic dysfunction, mild aortic stenosis, mitral valve with calcified annulus, mild pulmonary hypertension, no valvular vegetation noted. 03/18 knee drain removal. Repeat blood cultures negative (3) Leukocytosis: Qualifiers: Leukocytosis type: unspecified Qualified Code(s): D72.829 - Elevated white blood cell count, unspecified Code(s): D72.829 - Elevated white blood cell count, unspecified Status: Acute Assessment and Plan: WBC elevated from 20.5 to 12.2 Stop vanc and start ancef Source of infection appears to be bacteremia and septic joint Trend labs (4) Acute metabolic encephalopathy: Code(s): G93.41 - Metabolic encephalopathy Status: Acute Assessment and Plan: Seems to be confused at the moment Head ct 1.3cm right orbital mass and 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 Oncology recommending follow-up in the office. Trend mental status Adjust therapy as indicated (5) Chronic kidney disease: Qualifiers: Chronic kidney disease stage: stage 3 (moderate) Chronic kidney disease stage 3 subtype: stage 3b (GFR 30-44) Qualified Code(s): N18.32 - Chronic kidney disease, stage 3b Code(s): N18.9 - Chronic kidney disease, unspecified Status: Chronic Assessment and Plan: Stage 3 Baseline creatinine appears to be 0.8-1.10 Stable at this time Avoid nephrotoxic medications trend labs Adjust therapy as indicated Seems to be back to baseline (6) HTN (hypertension): Qualifiers: Hypertension type: primary hypertension Qualified Code(s): I10 - Essential (primary) hypertension Code(s): I10 - Essential (primary) hypertension Status: Chronic Assessment and Plan: Continue home medications Trend BP adjust therapy as indicated (7) Orbital mass: Code(s): 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 Status: Acute Assessment and Plan: Incidental findin
[2023-03-21 12:38] LABS: Potassium 3.9 mmol/L (3.4-5.0)
[2023-03-21 12:53] LABS: EDCOVIDSCREEN Negative (Negative)
[2023-03-21 14:00] VITALS: BP 115/59; PULSE 68; RESP 18; TEMP 36.6; O2SAT 94
== END 2023-03-21 16:12 | DRG 485 ==
LOC: ANHED 16:34 → ANH2MED 17:09
PROVIDERS: Internal Medicine; Internal Medicine Hematology & Oncology; Nurse Practitioner; Orthopaedic Surgery; Admitting Provider Family Medicine; Emergency Provider Physician Assistant; Visit Provider Internal Medicine Critical Care Medicine
PROC: 0SBC4ZZ Excision of Right Knee Joint, Percutaneous Endoscopic Approach (ICD-10-PCS; CPT 29870; principal; 2023-03-11 13:30)
DX: M00.061 Staphylococcal arthritis, right knee (principal); G93.41 Metabolic encephalopathy; R78.81 Bacteremia; B95.61 Methicillin susceptible Staphylococcus aureus infection as the cause of diseases classified elsewhere; Z79.82 Long term (current) use of aspirin; K21.9 Gastro-esophageal reflux disease without esophagitis; F32.A Depression, unspecified; I12.9 Hypertensive chronic kidney disease with stage 1 through stage 4 chronic kidney disease, or unspecified chronic kidney disease; N18.32 Chronic kidney disease, stage 3b; J45.909 Unspecified asthma, uncomplicated; H05.89 Other disorders of orbit; K11.8 Other diseases of salivary glands; M17.11 Unilateral primary osteoarthritis, right knee; M71.21 Synovial cyst of popliteal space [Baker], right knee; D64.9 Anemia, unspecified
CPT/HCPCS: 20605; 20611; 36415; 36569; 70450; 73560; 73723; 76882; 80048; 80053; 80202; 82533; 82607; 82728; 82746; 82945; 83540; 83550; 83605; 83615; 83735; 84132; 84145; 84443; 84550; 85025; 85652; 86140; 87040; 87070; 87075; 87077; 87147; 87186; 87205; 87426; 89051; 89060; 93306; 93971; 94640; 96361; 96374; 96375; 97110; 97116; 97161; 97164; 97165; 97530; 97535; 99285; A9270; A9577; C1729; C1751; C9803; J0690; J1170; J1644; J1650; J1756; J1885; J1940; J1956; J2060; J2270; J2405; J2704; J2765; J3010; J3370; J3480; J7030; J7040; J7120; L1830

== ENCOUNTER 2023-04-13 15:37 | Emergency (ER) | payer OTHER, SELFPAY ==
--- NOTE | ~2023-04-13 | US_ITS ---
EXAMINATION: US venous doppler LE RT DATE: 04/13/2023 16:53 INDICATION: Leg swelling and pain. TECHNIQUE: Grayscale images without and with compression and Doppler images of the right lower extrem ity veins were obtained. COMPARISON: None FINDINGS: The right common femoral vein, profunda (deep) femoral vein, femoral vein, popliteal vein, peroneal v ein, posterior tibial veins, gastrocnemius vein, and greater saphenous vein are patent. IMPRESSION: 1. Patent right lower extremity veins. No evidence of deep venous thrombosis. Reviewed, dictated and finalized at location K.
[2023-04-13 15:39] VITALS: PULSE 70; RESP 18; O2SAT 96
--- NOTE | 2023-04-13 16:25 | ED.GENADULT ---
HPI - General Adult General Chief complaint: Recheck/Abnormal Lab/Rx Stated complaint: post op swelling History of Present Illness HPI narrative: Patient is an 83-year-old female presenting with right leg pain. Patient states that she was discharged from this facility about a month ago for a septic knee. Her daughter is at bedside and assists with the history. States that the patient was here for several days and had 2 drains placed in her right knee. States that she was started on IV antibiotics which she has been on since her discharge. She was discharged to a rehab facility where she remains. Unfortunately, she continues to have significant right knee pain that has been limiting her rehab progress. States that she has also had worsening swelling involving her right lower extremity. They called her orthopedic doctor today who was unable to get her in until . Patient denies fevers, chest pain, shortness of breath, abdominal pain, vomiting, diarrhea, dysuria. Denies redness of right knee. Related Data Home Medications Medication Instructions Recorded Confirmed aspirin 81 mg tablet 81 mg PO HS 08/25/22 04/15/23 calcium 600 mg (1,500 mg)-vit 600 tablet PO DAILY 08/25/22 04/15/23 C-vit D2 200 unit-vit E-minerals tablet citalopram 20 mg tablet 20 mg PO DAILY 08/25/22 04/15/23 fluticasone furoate 200 200 inh inhalation DAILY 08/25/22 04/15/23 mcg-vilanterol 25 mcg/dose inhalation powder (Breo Ellipta) hydrochlorothiazide 12.5 mg tablet 12.5 mg PO DAILY 08/25/22 04/15/23 montelukast 10 mg tablet 10 mg PO HS 08/25/22 04/15/23 omeprazole 20 mg capsule,delayed 20 mg PO DAILY 08/25/22 04/15/23 release multivitamin 1 tablet PO DAILY 04/15/23 04/15/23 tizanidine 4 mg capsule 4 mg PO QHS PRN 04/15/23 04/15/23 Allergies Allergy/AdvReac Type Severity Reaction Status Date / Time amoxicillin [From Augmentin] Allergy Rash Verified 04/15/23 10:25 azithromycin [From Zithromax] Allergy Rash Verified 04/15/23 10:25 clavulanic acid Allergy Rash Verified 04/15/23 10:25 [From Augmentin] doxycycline Allergy Rash Verified 04/15/23 10:25 iodine Allergy Anaphylaxis Verified 04/15/23 10:25 norepinephrine Allergy Unknown Verified 04/15/23 10:25 [From Levophed (bitartrate)] Sulfa (Sulfonamide Allergy Rash Verified 04/15/23 10:25 Antibiotics) Review of Systems Review of Systems: All systems reviewed & are unremarkable except as noted in HPI and below PMFSH Past Medical History Medical History Asthma Depression GERD (gastroesophageal reflux disease) HTN (hypertension) Surgical History Surgical History H/O cataract extraction History of hysterectomy History of tonsillectomy S/P laparoscopic cholecystectomy 08/26/22 Septic arthritis of knee, right arthroscopic washout March 11, 2023 Family History Family History Mother Lung disease Son Acute myocardial infarction Son Involved in airplane accident Social History Social History Social History: She is and lives alone. She ambulates with a cane or walker. She has 3 children. 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 She is a lifelong nonsmoker. Code status: Full code Healthcare power of regional engagement consultant: Avis (daughter) Smoking status: Never smoker Alcohol intake: never Substance use: never Substance use type: does not use Lack of Transportation: YES Lack of Food: Never True Current Housing: I Have Housing Concerned About Future Housing: No Difficulty Paying Gas/Electric Bills: No Difficulty Paying for Meds: No Currently Unemployed: No Education: High School Diploma/GED Difficulty w/ Childcare or Family Care: No Living arrangements: halfway Additional living arrangements comm
[2023-04-13] MEDS: KETOROLAC 15 MG/ML VIAL (*BKC) IV PUSH (17:01)
[2023-04-13] MEDS: HYDROmorphone HCL INJ (*CRX) 1 MG/ML SYR 0.5 MG IV PUSH (17:02)
[2023-04-13 17:08] LABS: Hematocrit 26.7 % (37.0-47.0); Hemoglobin 8.2 g/dL (12.0-15.0); Mean Corpuscular HGB Conc 30.7 g/dl (32-36); Mean Corpuscular Hemoglobin 26.3 pg (26-34); Mean Corpuscular Volume 85.6 fl (80-100); Mean Platelet Volume 9.5 fl (7.4-10.4); Platelet Count Result 335 k/mm3 (150-375); Red Blood Count 3.12 M/mm3 (4.2-5.4); Red Cell Distribution Width 14.3 % (11.5-14.5); White Blood Count 11.3 K/mm3 (4.5-10.0)
[2023-04-13 17:13] VITALS: BP 128/61; PULSE 65; RESP 18; O2SAT 93
[2023-04-13 17:20] LABS: Anion Gap 1 mmol/L (8-16); Blood Urea Nitrogen 24 mg/dL (7-17); Calcium 8.2 mg/dL (8.4-10.2); Carbon Dioxide 35 mmol/L (22-30); Chloride 93 mmol/L (98-107); Estimated CRCL calculation 51 ml/min; Estimated Glomerular Filt Rate > 60; Glucose 103 mg/dL (65-110); Sodium 129 mmol/L (137-145)
[2023-04-13 17:30] LABS: Band Neutrophils Percent 1 % (0-6); Eosinophils Absolute Manual 0.11 K/mm3 (0.02-0.5); Eosinophils Percent Manual 1 % (0-4); Lymphocytes Absolute Manual 4.18 K/mm3 (1.1-4.5); Monocytes Absolute Manual 0.45 K/mm3 (0.1-0.90); Monocytes Percent Manual 4 % (3-9); Neutrophils Absolute Manual 6.55 K/mm3 (1.7-7.2); Neutrophils Percent Manual 57 % (46-73); Platelet Estimate Adequate (Adequate); Total Cells Counted 100
[2023-04-13 17:31] LABS: Schistocytes None Seen (NORMAL)
[2023-04-13 19:13] VITALS: BP 134/58; PULSE 62; RESP 18; O2SAT 95
== END 2023-04-13 19:22 ==
PROVIDERS: Emergency Provider Emergency Medicine
DX: M25.561 Pain in right knee (principal); R22.41 Localized swelling, mass and lump, right lower limb; J45.909 Unspecified asthma, uncomplicated; I10 Essential (primary) hypertension; K21.9 Gastro-esophageal reflux disease without esophagitis; Z98.49 Cataract extraction status, unspecified eye; Z90.710 Acquired absence of both cervix and uterus; Z79.82 Long term (current) use of aspirin
CPT/HCPCS: 36415; 80048; 85025; 93971; 96374; 96375; 99284; J1170; J1885

== ENCOUNTER 2025-01-23 14:55 | Outpatient (CLI) | payer OTHER, SELFPAY ==
--- NOTE | ~2025-01-23 | DEXA_ITS ---
Bone Density Report Name: ALEKSANDER MELCHOR Age: 84 Sex: Female Ethnicity: White Date of : 1940 Indication: postmenopausal; screening for osteoporosis; height loss; cancer; hysterectomy; Referring Provider: ESTEBAN LOZANO Study: Bone densitometry was performed. Exam Date: January 23, 2025 Accession number: [id number] Bone Density: Region BMD T-score Z-score Classification AP Spine(L1-L4) 0.876 -1.6 1.3 Osteopenia Femoral Neck (Left) 0.502 -3.1 -0.6 Osteoporosis Total Hip (Left) 0.671 -2.2 0.1 Osteopenia Femoral Neck (Right) 0.558 -2.6 -0.1 Osteoporosis Total Hip (Right) 0.584 -2.9 -0.6 Osteoporosis Total Hip Mean 0.627 -2.6 -0.3 Osteoporosis World Health Organization criteria for BMD impression classify patients as: Normal (T-score at or above -1.0), Osteopenia (T-score between -1.0 and -2.5), or Osteoporosis (T-score at or below -2.5). 10-year Fracture Risk: FRAX not reported because: Some T-score for Spine Total or Hip Total or Femoral Neck at or below -2.5 Clinical Information Provided by Patient: Has the following medical conditions: Cancer, Hysterectomy Patient maximum height was 64 Menopause Age: 43 No regular weight bearing exercise Drinks caffeinated beverages Onset of menses at age 10 Number of children 3 Impression: The patient has osteoporosis, based on the Left Femoral Neck T-score. Discussion: INCREASED RISK OF FRACTURE. BONE DENSITY IS UNDESIRABLY LOW AT ONE OR MORE SKELETAL SITES, CONSISTENT WITH POSTMENOPAUSAL OSTEOPOROSIS. This patient's lowest T-score meets the World Health Organization's (WHO) criteria for osteoporosis at one or more sites (T-score -2.5 or below). In untreated patients, the risk of osteoporotic fracture increases approximately two-fold for each 1.0 SD decrease in T-score. Low bone density is not the only risk factor for fracture; also consider factors such as patient's age, frailty or poor health, risk of falling, risk of injury, previous osteoporotic fracture, family history of osteoporosis, cigarette smoking, low body weight, etc. Not everyone with low bone mineral density has osteoporosis; osteomalacia and other metabolic bone disorders should also be considered. Patients who have osteoporosis should be evaluated for specific diseases and conditions (secondary causes) that may cause or contribute to bone loss. The [place] Association of Clinical Endocrinologists (AACE) and National Osteoporosis Foundation (NOF) recommend pharmacologic intervention for all postmenopausal women whose T-score is in this range. The patient should follow a healthful lifestyle (good nutrition with adequate calcium and vitamin D, and appropriate weight-bearing exercise). Follow-Up: Consider a repeat BMD and Vertebral Fracture Assessment (VFA) exam in 2 years or sooner if medically necessary, to reassess this patient's status. Reported by: MARCELINA on 01/23/2025 3:35:00 PM. Reviewed, dictated and finalized at location A. JOY
--- OUTSIDE RECORDS SUMMARY | 2025-01-23 16:25 | XMS_ITS | Referral Summary ---
Author Organization [facility] at the [facility] Address [address] [place] [address] Care Team Providers Care Flight Follower Name Role Phone Unavailable Primary Care Provider Unavailabl e Allergies Active Allergy Reactions Criticality Noted Date Comments Amoxicillin-Pot Clavulanate Nausea only Low 018 Doxycycline Hives Medium 09/02/2018 Iodides Hives Medium 09/02/2018 Iodine Shortness of breath High 07/06/2013 Lisinopril Nausea only Low 07/06/2013 Raloxifene Nausea only Low 07/06/2013 Sulfa (Sulfonamide Antibiotics) Rash Medium 06/25 Sulfamethoxazole-Trimethoprim Hives Medium 2017 Medications montelukast (SINGULAIR) 10 mg tablet Take 10 mg by mouth nightly 1 9 Active albuterol HFA (PROVENTIL HFA,VENTOLIN HFA,PROAIR HFA) 90 mcg/actuation inhaler INL 2 PFS ITL QID PRN 0 9 Active aspirin 81 mg enteric coated tablet Take 81 mg by mouth daily Active esomeprazole DR (NexIUM) 20 mg capsule Take 20 mg by mouth daily before breakfast Active citalopram (CeleXA) 10 mg tabletIndications :Major depressive disorder, recurrent episode, moderate with anxious distress (HCC) Take 1 tablet (10 mg total) by mouth daily 90 tablet 1 0 Active hydroCHLOROthiazi de (HYDRODIURIL) 12.5 mg tabletIndications :Essential hypertension TAKE 1 TABLET(12.5 MG) BY MOUTH DAILY 7 tablet 1 Active Active Problems Problem Noted Date Diagnosed Date Essential hypertension 07/03/2019 Major depressive disorder, r ecurrent episode, moderate with anxious distress 07/03/2019 Primary osteoarthritis of both knees 07/03/2019 Mild intermittent asthma without complication Gastroesophageal reflux disease without esophagi tis 07/03/2019 Asthma 07/06/2013 Immunizations Immunization Administration Dates Next Due Influenza, Trivalent, High D ose, Split, Preservative Free, Intramuscular 07/17/2019 Social History Tobacco Use Types Packs/Day Years Used Date Smoking Tobacco: Never Smokeless Tobacco: Never Alcohol Use Standard Drinks/Week Comments Not Currently 0 (1 standard drink = 0.6 oz pur e alcohol) PHQ-2 Answer Date Recorded PHQ-2 Score 0 07/03/2019 Personal Safety Answer Date Recorded Getting School Help Needed Not on file 01/07 Comments Unknown Sex and Gender Information Value Date Recorded Sex Assigned at Not on file Legal 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
--- OUTSIDE RECORDS SUMMARY | 2025-01-23 16:25 | XMS_ITS | Clinical Summary ---
Author Organization [facility] at the [facility] Address [address] [place] [address] Care Team Providers Care Chimney Builder Brick Name Role Phone Unavailable Primary Care Provider [...] D ose, Split, Preservative Free, Intramuscular 07/17/2019 Surgical History Surgery Date Site/Laterality Comments HYSTERECTOMY ARM SURGERY Left metal plate TONSILLECTOMY Medical History Medical History Date Comments Asthma Arthritis Family History Medical History Relation Name Comments No Known Problems Father No Known Problems Maternal Grandfather Ovarian cancer Maternal Grandmother Cirrhosis Mother Emphysema Mother No Known Problems Paternal Grandfather No Known Problems Paternal Grandmother Relation Name Status Comments Father Maternal Grandfather Maternal Grandmother Mother Paternal Grandfather Paternal Grandmother Social History Tobacco Use Types Packs/Day Years [...] on file 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
--- OUTSIDE RECORDS SUMMARY | 2025-01-23 16:25 | XMS_ITS | Encounter Summary ---
Author Organization [facility] - [facility] Address [address] [place] [address] Care Team Providers Care Corn Detasseler Machine Operator Name Role Phone Byron De La Rosa MD Primary Care Provider [phone] Prabhakar Padron MD Unavailable [phone] Encounter Details Date Type Department Care Team (Late st Contact Info) Description 04/21/2023 MyChart Message Enc [facility] - [facility] [address] [place] [address] [employer], [facility] Provider Air Quality Message Social History Tobacco Use Types Packs/Day Years Used Date Smoking Tobacco: Never Smokeless Tobacco: Never Alcohol Use Standard Drinks/Week Comments Not Currently 0 (1 standard drink = 0.6 oz pur e alcohol) PHQ-2 Answer Date Recorded PHQ-2 Score - If the patient scores above 3, please move on to questions 3-9 1 05/01/2021 Comments No Sex and Gender Information Value Date Recorded Sex Assigned at Not on file Legal Sex Female 4:28 PM CDT Gender Identity Not on file Sexual Orientation Not on file 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 [address] [place] [address] Kaden Antonio DO [address] [place] [address] documented as of this encounter Visit Diagnoses Not on filedocumented in this encounter Additional Health Concerns Assessment Noted Time PHQ-9 Depression Total Score: 1 05/01/20 21 9:12 AM CDT documented as of this encounter Care Teams Corn Detasseler Machine Operator Relationship Specialty Start Date End Date Byron De La Rosa MD [address] [id number] PCP - General FAMILY PRACTICE 06/24/20 Prabhakar Padron MD [address] [address] ORTHOPAEDICS 03/18/23 documented as of this encounter
--- OUTSIDE RECORDS SUMMARY | 2025-01-23 16:25 | XMS_ITS | Clinical Summary ---
Author Organization [facility] Oliver gomez [facility] Address [address] [place] [address] Care Team Providers Care Diamond Sizer And Sorter Name Role Phone Unavailable Primary Care Provider Unavailabl e Social History Tobacco Use Types Packs/Day Years Used Date Smoking Tobacco: Never Assessed Comments Unknown Sex and Gender Information Value Date Recorded Sex Assigned at Not on file Legal Sex Female 4:15 PM CDT Gender Identity Not on file Sexual Orientation Not on file Plan of Treatment Health Maintenance Due Date Last Done Comments DTAP/TDAP/TD VACCINES (1 - Tdap) 1958 PNEUMOCOCCAL VACCINE 50+ YEARS (1 of 1 - PCV) 02/10/19 89 ZOSTER VACCINE (1 of 2) 1989 OSTEOPOROSIS SCREENING 02/11/2004 RSV VACCINE (60+ or ) (1 - 1-dose 75+ series) 2014 INFLUENZA VACCINE (#1) 2024 Insurance [facility]
--- OUTSIDE RECORDS SUMMARY | 2025-01-23 16:25 | XMS_ITS | Encounter Summary ---
Author Organization [facility] Address [address] [place] [address] Phone Care Team Providers Care Freelance Director Name Role Phone Unavailable Primary Care Provider Unavailabl e Encounter Details Date Type Department Care Team (Late st Contact Info) Description 04/28/2023 Telephone [facility] [address] [place] [address] Miscellaneous, Not In File Social History Tobacco Use Types Packs/Day Years Used Date Smoking Tobacco: Never Smokeless Tobacco: Never Alcohol Use Standard Drinks/Week Comments Not Currently 0 (1 standard drink = 0.6 oz pur e alcohol) PHQ-2 Answer Date Recorded PHQ-2 Score 0 07/03/2019 Comments Unknown Sex and Gender Information Value Date Recorded Sex Assigned at Not on file Legal 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
--- OUTSIDE RECORDS SUMMARY | 2025-01-23 16:25 | XMS_ITS ---
Author Name YANETH WARD M.D. Address [address] [place] [address] Phone [phone] Organization [facility] ([facility]) Care Team Providers Care Solvent Mixer Name Role Phone ED YANETH Unavailable [phone] Everardo Sultana Unavailable Unavailable Unavailable Unavailable Unavailable RAHUL FU Unavailable [phone] Amada Ribera Unavailable [phone] Reason for Referral Not Available Allergies, adverse reactions, alerts Allergen Type Reaction Severity Status Onset Date Sulfa Antibiotics Allergy to substance (disorder) Unknown Active N/A Iodine Allergy to substance (disorder) Unknown Active N/A Septra Allergy to substance (disorder) Unknown Active N/A Augmentin Allergy to substance (disorder) Unknown Active N/A Zithromax Allergy to substance (disorder) Unknown Active N/A Levophed Allergy to substance (disorder) Unknown Active N/A Doxycycline Allergy to substance (disorder) Unknow n Active N/A Iron Allergy to substance (disorder) Unknown Active N/A History of medication use Medication Class Instructions Start Date End Date Baclofen 5 mg Tab 1 tablet orally 2 ti mes per day as needed 2024-08-30 No Data Available Aspirin 81 mg Tab delayed rel 1 tablet every day 2024-08-30 No Data Available Stool Softener 100 mg Cap 1 capsule oral ly daily as needed 2024-08-30 No Data Available traMADol 50 mg Tab 1 tablet orally ever y 6 hours as needed 2024-08-30 No Data Available Tylenol 8hr Arthritis Pain 650 mg Tab ER 2 tablets orally every 8 hours as needed 2024-08-30 No Data Available Problem List Problem Status Onset Date Resolved Date Moderate persistent asthma, uncomplicated Active 2024-08-30 N/A Gait abnormality Active 2024-08-30 N/A Major depressive disorder, single episode, mild Active 2024-08-30 N/A Essential hypertension Active 2024-08-30 N/A Primary insomnia Active 2024-08-30 N/A Chronic knee pain Active 2024-08-30 N/A Atherosclerosis of aorta Active 2024-08-30 N/A CKD stage 3a, GFR 45-59 ml/min Active 2024-08-30 N/A Inflammatory polyarthropathy Active 2024-08-30 N/A Encounters Encounters Type Facility Date of Service Diagnosis/Co mplaint Home visit for evaluation and management of new patient requiring medically appropriate examination and moderate level of medical decision making. If using time, at least 60 minutes total time on enco [facility] [place] 08/30/2024 Moderate persistent asthma, uncomplicatedUnspecified abnormalities of gait and mobilityMajor depressive disorder, single episode, mildHypertensive chronic kidney disease w stg 1-4/unsp chr kdnyPrimary insomniaPain in unspecified kneeOther chronic painAtherosclerosis of aortaChronic kidney disease, stage 3a Home visit for evaluation and management of new patient requiring medically appropriate examination and moderate level of medical decision making. If using time, at least 60 minutes total time on enco [facility] [place] 08/30/2024 Hypertensive chronic kidney disease w stg 1-4/unsp chr kdny Home visit for evaluation and management of new patient requiring medically appropriate examination and moderate level of medical decision making. If using time, at least 60 minutes total time on enco [facility] [place] 08/30/2024 Hypertensive chronic kidney disease w stg 1-4/unsp chr kdny Vital Signs Date of Collection Vitals 2024-08-30 10:51:55 Height - 160.02 cmWe ight - 78.93 kgBody Mass Index (BMI) - 30.82 kg/m2BP Diastolic - 70.0 mm[Hg]BP Systolic - 130.0 mm[Hg]Heart Rate - 67.0 /minRespiratory Rate - 18.0 /minBody Temperature - 36.67 CelO2 % BldC Oximetry - 96.0 % Social History Social History Social History Observation Description Effec tive Time Current Smoking Status Never smoker 1 Sex Female History of Procedures Procedures Service Procedure code Service date Servicing provider Phone# Home visit for evaluation and management of new patient requiring medically appropriate examination and moderate level of medical decision making. If using time, at least 60 minutes [place] on enco [id number] 2024-08-30 No Data Available No Data Availa ble Most recent systolic blood pressure 130 -139 mm Hg 3075F 2024-08-30 No Data Available No Data Availa ble Most recent dystolic blood pressure <80 mm Hg 3078F 2024-08-30 No Data Available No Data Availa ble Functional Status No Information Mental Status No Information Assessments Date of Service Assessments 2024-08-30 10:51:55 Moderate persistent asthma, uncomplicatedGait abnormalityMajor depressive disorder, single episode, mildEssential hypertensionPrimary insomniaChronic knee painAtherosclerosis of aortaCKD stage 3a, GFR 45-59 ml/minInflammatory polyarthropathy Plan of Care Date of Service Plans 2024-08-30 10:51:55 Patient takes albute rol HFA 108 mcg/act 2 puffs Q6 PRN, Breo Ellipta 200-25mcg/act 1 puff daily, and montelukast 10mg nightly. Follows pulmonology. Continue taking medications as prescribed and F/U as directed.Patient has abnormal gait requiring wheeled walker due to arthritis in bilateral knees.Patient currently takes citalopram 20mg daily. Continue taking medications as prescribed and F/U as directed.Patient currently takes HCTZ 12.5mg daily. BP controlled at today's visit. Continue taking medications as prescribed and F/U as directed.Patient takes trazodone 25mg nightly PRN. Continue taking medications as prescribed and F/U as directed.Patient takes baclofen 5mg BID PRN and tramadol 50mg Q6 PRN. Continue taking medications as prescribed and F/U as directed.Patient currently takes aspirin 81mg daily. Continue taking medications as prescribed and F/U as directed.GFR 48. Monitored by PCP. Encouraged increased water intake.Patient takes baclofen 5mg BID PRN and tramadol 50mg Q6 PRN. Continue taking medications as prescribed and F/U as directed. Goals Date Goal 2024-08-30 Encouraged patient t o increase water intake daily. 2024-08-30 Advised patient to t dora advanced care planning documents to PCP. 2024-08-30 Chronic conditions a ppear controlled at this time. Continue taking medications as prescribed and F/U as directed. Health Concerns Date Concern 2024-08-30 [facility] is a service that involves a physician or advanced practice provider conducting comprehensive assessments in your patient s home or virtually to address crucial areas such as chronic conditions, quality gaps, social concerns, fall risk prevention, and various screenings. Please note that your patient will remain attributed to you even though they are participating in this service. If you have any questions, please reach out directly to our team at the phone number above.Your patient, Jamia Palacios, 38, was seen today for a [facility] visit. Patient read rights and responsibilities and consented to treatment. The purpose of this summary is to update you on the patient's current health status and share any relevant findings from the examination. 2024-08-30 Recommendations:Take a copy of advanced care plan to PCPEncouraged increased water intake 2024-08-30 Patient is a 84yr ol d female. They are being seen today for a [facility] comprehensive exam. Patient denies any current concerns or symptoms. They deny any recent hospitalizations, illness, injury, or falls. Current diagnoses and medications are as listed below. Patient lives with self majority of the time, but currently has her daughter in law living with her. She is independent with her care. She does use a wheeled walker for ambulation.
--- OUTSIDE RECORDS SUMMARY | 2025-01-23 16:25 | XMS_ITS | Clinical Summary ---
Author Organization [facility] Address [facility] [place] [address] Care Team Providers Care Rescue Worker Name Role Phone Byron De La Rosa MD Primary Care Provider [phone] Prabhakar Padron MD [facility] [phone] Allergies Active Allergy Reactions Criticality Noted Date Comments Amoxicillin-Pot Clavulanate Nausea Only 018 Doxycycline Hives 09/02/2018 Iodides Hives 09/02/2018 Lisinopril Nausea Only 07/06/2013 Norepinephrine Bitartrate Anaphylaxis High 3 Raloxifene Nausea Only 07/06/2013 Sulfamethoxazole-Trimethoprim Hives 2017 Sulfa Antibiotics Rash Low 07/06/2013 Medications aspirin EC (ASPIRIN EC) 81 MG tablet Active citalopram (CELEXA) 20 MG tabletIndication s:Recurrent major depressive disorder, in partial remission TAKE 1 TABLET(20 MG) BY MOUTH DAILY 90 tablet 1 2 Active valACYclovir (VALTREX) 1 g tabletIndication s:Dermatitis Take 1 tablet (1,000 mg total) by mouth 3 (three) times daily. 21 tablet 3 Active omeprazole (PRILOSEC) 20 MG capsuleIndicatio ns:Essential hypertension,TERESO D (gastroesophagea l reflux disease) Take 1 capsule (20 mg total) by mouth daily. 30 capsule 3 Active hydroCHLOROthiaz jyotsna (MICROZIDE) 12.5 MG capsule 3 Active gabapentin (NEURONTIN) 100 MG capsule Take 1 capsule (100 mg total) by mouth 2 (two) times a day. Active traMADol (ULTRAM) 50 MG tablet Take 1 tablet (50 mg total) by mouth every 6 (six) hours as needed. 3 Active famotidine (PEPCID) 20 MG tablet Take 1 tablet (20 mg total) by mouth daily. 3 Active montelukast (SINGULAIR) 10 MG tabletIndication s:Mild intermittent asthma without complication (HHS/HCC) Take 1 tablet (10 mg total) by mouth nightly at bedtime. 90 tablet 1 4 Active albuterol sulfate HFA 108 (90 Base) MCG/ACT inhalerIndicatio ns:Mild intermittent asthma without complication (HHS/HCC) INHALE 2 PUFFS INTO THE LUNGS EVERY 6 HOURS NEEDED FOR WHEEZING 25.5 g 2 4 Active fluticasone furoate-vilanter ol (BREO ELLIPTA) 200-25 MCG/ACT inhalerIndicatio ns:Moderate persistent asthma without complication (HHS/HCC) Inhale 1 puff into the lungs daily. 180 each 2 4 Active albuterol (PROVENTIL) (2.5 MG/3ML) 0.083% nebulizer solutionIndicati ons:Moderate persistent asthma without complication (HHS/HCC) Take 3 mLs (2.5 mg total) by nebulization every 6 (six) hours as needed for Wheezing. 360 mL 6 4 Active Active Problems Problem Noted Date Diagnosed Date Dermatitis 01/28/2023 Trigger index finger of right hand 07/01/2021 Dysuria 03/18/2021 Stage 3b chronic kidney disease 08/12/2020 Atherosclerosis of aorta 07/30/2020 Cervical lymphadenopathy 07/29/2020 Acute right-sided low back pain with right-sided sciatica 06/03/2020 Gastroesophageal reflux disease without esophagi tis 07/03/2019 Major depressive disorder, r ecurrent episode, moderate with anxious distress 07/03/2019 Mild intermittent asthma without complication (H HS/HCC) 07/03/2019 Primary osteoarthritis of both knees 07/03/2019 Essential hypertension 07/03/2019 Chronic pain of both knees 07/26/2018 Tendonitis 07/26/2018 Colonoscopy refused 10/13/2017 Arm pain 05/19/2017 Mood disorder 09/28/2016 Actinic keratosis 10/01/2015 BMI 36.0-36.9,adult 10/01/2014 Senile nuclear sclerosis 03/12/2014 Allergic rhinitis 07/06/2013 Anxiety 07/06/2013 Morbid obesity 07/06/2013 Osteopenia 07/06/2013 Resolved Problems Problem Noted Date Diagnosed Date Resolved Date Routine general medical exam ination at a health care facility 05/15/2013 05/11/2022 Encounters Date Type Department Care Team Description 11/27/2024 Telephone [facility] Pulmonology Specialty Clinic [facility] [address] [place] [phone] Kaden Antonio DO Question from Last 3 Months Immunizations Name Administration Dates Next Due Fluzone High Dose - >Age 65 (Prefilled Syringe) 07/17/2019,08/04/2017,08/20/2016,2014,07/26/2013 Influenza (Generic) 07/26/2013 Influenza Adult (Generic) 08/08/2020,,07/26/2018,2013,08/24/2012 Pneumococcal (Pneumovax 23) 11/21/2007 Pneumococcal (Prevnar 13) 10/19/2014 Td (Tenivac) preservative free 12/12/2007,1996 Zoster (Zostavax) 95797 Unt/0.65Ml 1940 Family History Medical History Relation Comments Alcohol Abuse Mother Emphysema Mother Relation Status Comments Mother Social History Tobacco Use Types Packs/Day Years Used Date Smoking Tobacco: Never Smokeless Tobacco: Never Tobacco Cessation:Counseling Given: Yes Alcohol Use Standard Drinks/Week Comments Not Currently 0 (1 standard drink = 0.6 oz pur e alcohol) PHQ-2 Answer Date Recorded Patient Health Questionnaire-2 Score 0 09/28/2024 Comments No Sex and Gender Information Value Date Recorded Sex Assigned at Not on file Legal Sex Female 4:28 PM CDT Gender Identity Not on file Sexual Orientation Not on file 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 Not on file Not on file Not on file Last Filed Vital Signs Vital Sign Reading Time Taken Comments Blood Pressure 138/76 09/28/2024 2:32 PM CABLE FERRY OPERATOR Pulse 73 09/28/2024 2:32 PM CABLE FERRY OPERATOR Temperature 37.3 C (99.1 F) 09/28/2024 2:32 PM CABLE FERRY OPERATOR Respiratory Rate 16 09/14/2023 7:26 AM CABLE FERRY OPERATOR Oxygen Saturation 95% 09/28/2024 2:32 PM CABLE FERRY OPERATOR Inhaled Oxygen Concentration - - Weight 78.9 kg (174 lb) 09/28/2024 2:32 PM CABLE FERRY OPERATOR Height 154.9 cm (5' 1 ) 09/14/2023 7:26 AM CABLE FERRY OPERATOR Body Mass Index 32.88 09/14/2023 7:26 AM CABLE FERRY OPERATOR Plan of Treatment Upcoming Encounters Date Type Department Care Team (Late st Contact Info) Description 10/02/2025 11:00 AM CABLE FERRY OPERATOR Office Visit [facility] Multispecialty Care - [facility] [address] [place] [address] Kaden Antonio DO [address] [place] [address] Health Maintenance Due Date Last Done Comments ASCVD Statin 1940 Zoster Vaccines (1 of 2) 1989 1940 DTaP, Tdap and Td Vaccines (1 - Tdap) 12/13/2007 12/12/2007, 09/12/1997 RSV Immunization or 60+ Years (1 - 1-dose 75+ series) 2014 ASCVD LDL 05/06/2023 05/06/2022, 09/0 04/2021, 07/22/2020, Additional history exists Annual Medicare Wellness Visit 05/07/2023 05/06/2022 COVID-19 Vaccine ( season) 2024 01/24/2021, 01/03/2021 Influenza Adult (#1) 2024 08/08/2020, 07/17/2019, 07/17/2019, Additional history exists PHQ-2 (Physician Native) 10/25/2024 09/28/2024 Pneumococcal Vaccine: 65+ Years Completed 10/19/2014, 11/21/2007 Meningococcal B Vaccine Aged Out No l onger eligible based on patient's age to complete this topic Meningococcal Vaccine Aged Out No chalino tereso eligible based on patient's age to complete this topic RSV Immunizations Under 20 Months Aged Out No longer eligible based on patient's age to complete this topic Procedures Procedure Name Priority Date/Time Associated Diagnosis Comments LIPID PANEL Routine 05/06/2022 4:23 PM CDT Stage 3b chronic kidney disease Essential hypertension from Last 3 Months or Most Recently Relevant to Health Maintenance Results * LIPID PANEL (05/06/2022 4:23 PM CDT) CHOLESTEROL 176 <200 mg/dL [facility] HDL 61 > OR = 50 mg/dL [facility] TRIGLYCERIDES 104 <150 mg/dL [facility] LDL (CALCULATED) 95 mg/dL (calc) [facility] Comment: Reference range: <100 Desirable range <100 mg/dL for primary prevention; <70 mg/dL for patients with CHD or diabetic patients with > or = 2 CHD risk factors. LDL-C is now calculated using the Maria Elena calculation, which is a validated novel method providing better accuracy than the Friedewald equation in the estimation of LDL-C. Sunil SS et al. MONSERRAT. 2013;310(19): 4810-1439 (http://education.CloudAccess/faq/YRX632) CHOL/HDL RATIO 2.9 <5.0 (calc) [facility] NON HDL CHOLESTEROL 115 <130 mg/dL (calc) [facility] Comment: For patients with diabetes plus 1 major ASCVD risk factor, treating to a non-HDL-C goal of <100 mg/dL (LDL-C of <70 mg/dL) is considered a therapeutic option. 05/06/2022 4:23 PM CDT 05/07/2022 3:41 AM CDT us Byron De La Rosa MD LABORATORY Final Resul t [facility] [id number] [phone] from Last 3 Months or Most Recently Relevant to Health Maintenance Insurance ESSENCE ESSENCE Care Teams Rescue Worker Relationship Specialty Start Date End Date Byron De La Rosa MD [address] [address] PCP - General FAMILY PRACTICE 06/24/20 Prabhakar Padron MD [address] [address] ORTHOPAEDICS 03/18/23
== END 2025-01-23 14:56 | disposition home or self-care (01) ==
PROVIDERS: PCP Family Medicine; Visit Provider Family Medicine
DX: Z78.0 Asymptomatic menopausal state (principal); M81.0 Age-related osteoporosis without current pathological fracture; M85.89 Other specified disorders of bone density and structure, multiple sites
CPT/HCPCS: 77080

== ENCOUNTER 2025-05-08 12:44 | Outpatient (CLI) | payer OTHER, SELFPAY ==
--- OUTSIDE RECORDS SUMMARY | 2025-05-08 12:52 | XMS_ITS | Referral Summary ---
Author Organization [facility] at the [facility] Office Center Address [address] [place] [address] Care Team Providers Care Product Tester Fiberglass Name Role Phone Unavailable Primary Care Provider [...] on file Legal Sex Female 10:03 AM INFORMATION SYSTEMS ADMINISTRATOR Gender Identity Not on file Sexual Orientation [...] 3:00 PM CDT Height 160 cm (5' 2.99) 05/02/2020 3:00 PM CDT Body Mass Index 33.1 05/02/2020 3:00 PM CDT Plan of Treatment Not on file Insurance [facility]
--- OUTSIDE RECORDS SUMMARY | 2025-05-08 12:52 | XMS_ITS | Encounter Summary ---
Author Organization [facility] Home Care Servic es Address [address] [place] [address] Phone Care Team Providers Care Candle Pourer Name Role Phone Unavailable Primary Care Provider Unavailabl e Encounter Details Date Type Department Care Team (Late st Contact Info) Description 04/28/2023 Telephone [facility] Home Care Services [address] [place] [address] Miscellaneous, Not In File Social History Tobacco [...] on file Legal Sex Female 10:03 AM ESCALATOR MECHANIC Gender Identity Not on file Sexual Orientation Not on file documented as of this encounter Plan of Treatment Not on file documented as of this encounter Visit Diagnoses Not on filedocumented in this encounter
--- OUTSIDE RECORDS SUMMARY | 2025-05-08 12:52 | XMS_ITS | Encounter Summary ---
Author Organization [facility] Address [facility] [place] [address] Care Team Providers Care Administrative Accountant Name Role Phone Byron De La Rosa MD Primary Care Provider [phone] Prabhakar Padron MD Unavailable [phone] Reason for Visit * Reason Onset Date Comments Orders 05/08/2025 Encounter Details Date Type Department Care Team (Late st Contact Info) Description 05/08/2025 Telephone [facility] Medical [facility] Pulmonology Specialty Clinic [address] [address] Kaden Antonio DO [address] [facility] [address] [place] [phone] Orders Social History Tobacco Use Types Packs/Day Years [...] 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 Kaden Antonio sent at 05/08/2025 10:36 AM CDT ----- VV done, can keep same follow up. Can you call pt/family and let them know I want to get a pft and 6mwt as well. Already ordered Thanks Dr. Colt Antonio [facility] Pulmonary Medicine documented in this encounter Plan of Treatment Upcoming Encounters Date Type Department Care Team (Late st Contact Info) Description 10/02/2025 11:00 AM WATER RESOURCE ENGINEER Office Visit [facility] Multispecialty Care - [facility] [address] [place] [address] Kaden Antonio DO [address] [place] [address] documented as of this encounter Visit Diagnoses Not on filedocumented in this encounter Additional Health Concerns Assessment Noted Time PHQ-9 Depression Total Score: 1 05/01/20 21 9:12 AM CDT documented as of this encounter Care Teams Administrative Accountant Relationship Specialty Start Date End Date Byron De La Rosa MD [address] [address] PCP - General FAMILY PRACTICE 06/24/20 Prabhakar Padron MD [address] [facility] [address] [place] [address] ORTHOPAEDICS 03/18/23 documented as of this encounter
--- OUTSIDE RECORDS SUMMARY | 2025-05-08 12:52 | XMS_ITS | Clinical Summary ---
Author Organization [facility] g[facility] Address [address] [place] [address] Care Team Providers Care Psychiatric Social Worker Supervisor Name Role Phone Unavailable Primary Care Provider [...] 1-dose 75+ series) 2014 INFLUENZA VACCINE (#1) 2025 Insurance [facility]
--- OUTSIDE RECORDS SUMMARY | 2025-05-08 12:52 | XMS_ITS | Clinical Summary ---
Author Organization [facility] Address [facility] [place] [address] Care Team Providers Care Director Of Services Name Role Phone Byron De La Rosa MD Primary Care Provider [phone] Prabhakar Padron MD Unavailable [phone] Allergies Active Allergy Reactions Criticality Noted Date Comments Amoxicillin-Pot Clavulanate Nausea Only 018 Doxycycline Hives 09/02/2018 Iodides Hives 09/02/2018 Lisinopril Nausea Only 07/06/2013 Norepinephrine Bitartrate Anaphylaxis High 3 Raloxifene Nausea Only 07/06/2013 Sulfamethoxazole-Trimethoprim Hives 2017 Sulfa Antibiotics Rash Low 07/06/2013 Medications aspirin EC (ASPIRIN EC) 81 MG tablet Active citalopram (CELEXA) 20 MG tabletIndicatio ns:Recurrent major depressive disorder, in partial remission TAKE 1 TABLET(20 MG) BY MOUTH DAILY 90 tablet 1 07/22/20 22 Active valACYclovir (VALTREX) 1 g tabletIndicatio ns:Dermatitis Take 1 tablet (1,000 mg total) by mouth 3 (three) times daily. 21 tablet 01/29/20 23 Active omeprazole (PRILOSEC) 20 MG capsuleIndicati ons:Essential hypertension,GE RD (gastroesophage al reflux disease) Take 1 capsule (20 mg total) by mouth daily. 30 capsule 05/17/20 23 Active hydroCHLOROthia zide (MICROZIDE) 12.5 MG capsule 06/23/20 23 Active gabapentin (NEURONTIN) 100 MG capsule Take 1 capsule (100 mg total) by mouth 2 (two) times a day. Active traMADol (ULTRAM) 50 MG tablet Take 1 tablet (50 mg total) by mouth every 6 (six) hours as needed. 09/01/20 23 Active famotidine (PEPCID) 20 MG tablet Take 1 tablet (20 mg total) by mouth daily. 06/15/20 23 Active albuterol (PROVENTIL) (2.5 MG/3ML) 0.083% nebulizer solutionIndicat ions:Moderate persistent asthma without complication (HHS/HCC) Take 3 mLs (2.5 mg total) by nebulization every 6 (six) hours as needed for Wheezing. 360 mL 6 09/28/20 24 Active montelukast (SINGULAIR) 10 MG tabletIndicatio ns:Mild intermittent asthma without complication (HHS/HCC) TAKE 1 TABLET(10 MG) BY MOUTH EVERY NIGHT AT BEDTIME 90 tablet 1 04/30/20 25 Active predniSONE (DELTASONE) 20 MG tabletIndicatio ns:Moderate persistent asthma with acute exacerbation (HHS/HCC) Take 2 tablets (40 mg total) by mouth daily for 5 days. 10 tablet 05/08/20 25 2024 Active Albuterol-Budes onide (AIRSUPRA) 90-80 MCG/ACT AerosolIndicati ons:Moderate persistent asthma with acute exacerbation (HHS/HCC) Inhale 2 puffs into the lungs every 4 (four) hours as needed. 10.7 g 05/08/20 25 Active Fluticasone-Ume clidin-Vilant (TRELEGY ELLIPTA) 200-62.5-25 MCG/ACT AEROSOL POWDER, BREATH ACTIVATEDIndica tions:Moderate persistent asthma with acute exacerbation (HHS/HCC) Inhale 1 puff into the lungs daily. 60 each 05/08/20 25 Active Spacer/Aero-Hol ding Chambers DeviceIndicatio ns:Moderate persistent asthma with acute exacerbation (HHS/HCC) 1 each by Does not apply route daily. 1 each 05/08/20 25 Active montelukast (SINGULAIR) 10 MG tabletIndicatio ns:Mild intermittent asthma without complication (HHS/HCC) Take 1 tablet (10 mg total) by mouth nightly at bedtime. 90 tablet 1 05/05/20 24 2024 Discontinued albuterol sulfate HFA 108 (90 Base) MCG/ACT inhalerIndicati ons:Mild intermittent asthma without complication (HHS/HCC) INHALE 2 PUFFS INTO THE LUNGS EVERY 6 HOURS NEEDED FOR WHEEZING 25.5 g 2 07/03/20 24 2024 Discontinued fluticasone furoate-vilante rol (BREO ELLIPTA) 200-25 MCG/ACT inhalerIndicati ons:Moderate persistent asthma without complication (HHS/HCC) Inhale 1 puff into the lungs daily. 180 each 2 08/08/20 24 2024 Discontinued Active Problems Problem Noted Date Diagnosed Date [...] Encounters Date Type Department Care Team Description 05/08/2025 10:10 AM CDT Telemedicine [facility]ty Care - [address], [address] [place] [phone] Kaden Antonio, Follow Up 05/08/2025 Telephone [facility] [place] [id number] [place] [address] Kaden Antonio DO Orders 05/02/2025 Telephone [facility] [address] [place] [address] Kaden Antonio DO Concerns from Last 3 Months Immunizations Immunization Administration Dates Next Due Fluzone High Dose - >Age 65 (Prefilled Syringe) 07/17/2019,08/04/2017,08/20/2016,2014,07/26/2013 Influenza (Generic) 07/26/2013 Influenza Adult (Generic) 08/08/2020,,07/26/2018,2013,08/24/2012 Pneumococcal (Pneumovax 23) 11/21/2007 Pneumococcal (Prevnar 13) 10/19/2014 Td (Tenivac) preservative free 12/12/2007,1996 Zoster (Zostavax) 47582 Unt/0.65Ml 1940 Family History Medical History Relation [...] 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 Not on file Not on file Last Filed Vital Signs Vital Sign Reading Time Taken Comments Blood Pressure 138/76 09/28/2024 2:32 PM LENS SHAPER GRINDER Pulse 73 09/28/2024 2:32 PM LENS SHAPER GRINDER Temperature 37.3 C (99.1 F) 09/28/2024 2:32 PM LENS SHAPER GRINDER Respiratory Rate 16 09/14/2023 7:26 AM LENS SHAPER GRINDER Oxygen Saturation 95% 09/28/2024 2:32 PM LENS SHAPER GRINDER Inhaled Oxygen Concentration - - Weight 78.9 kg (174 lb) 09/28/2024 2:32 PM LENS SHAPER GRINDER Height 154.9 cm (5' 1) 09/14/2023 7:26 AM LENS SHAPER GRINDER Body Mass Index 32.88 09/14/2023 7:26 AM LENS SHAPER GRINDER Plan of Treatment Upcoming Encounters Date Type Department Care Team (Late st Contact Info) Description 10/02/2025 11:00 AM LENS SHAPER GRINDER Office Visit [facility] - [facility] [address] [place] [address] Kaden Antonio DO [address] [place] [address] Health Maintenance Due Date Last Done Comments ASCVD Statin 1940 Zoster Vaccines (1 of 2) [birth year] DTaP, Tdap and Td Vaccines (1 - Tdap) 12/13/2007 12/12/2007, 09/12/1997 RSV Immunization or 60+ Years (1 - 1-dose 75+ series) 2014 ASCVD LDL 05/06/2023 05/06/2022, 04/2021, 07/22/2020, Additional history exists Annual Medicare Wellness Visit 05/07/2023 05/06/2022 COVID-19 Vaccine ( season) 2024 01/24/2021, 01/03/2021 PHQ-2 (Physician [place]) 10/25/2024 09/28/2024 Pneumococcal Vaccine: 50+ Years Completed 10/19/2014, 11/21/2007 Meningococcal B Vaccine Aged Out No l onger eligible based on patient's age to complete this topic Meningococcal Vaccine Aged Out No chalino fozia eligible based on patient's age to complete [...] * LIPID PANEL (05/06/2022 4:23 PM CDT) [facility] CHOLESTEROL 176 <200 mg/dL [facility] [...] of LDL-C. Sunil SS et al. MONSERRAT. 2013;310(40): 3072-5560 (http://education.en-Gauge/faq/IRH757) CHOL/HDL RATIO 2.9 <5.0 (calc) [facility] NON HDL CHOLESTEROL 115 <130 mg/dL (calc) [facility] Comment: For patients with diabetes plus 1 major ASCVD risk factor, treating to a non-HDL-C goal of <100 mg/dL (LDL-C of <70 mg/dL) is considered a therapeutic option. 05/06/2022 4:23 PM CDT 05/07/2022 3:41 AM CDT Byron De La Rosa MD LABORATORY Final Resul t [facility] [address] [place] [address] from Last 3 Months or Most Recently Relevant to Health Maintenance Insurance [employer] Care Teams Director Of Services Relationship Specialty Start Date End Date Byron De La Rosa MD [address] [address] PCP - General FAMILY PRACTICE 06/24/20 Prabhakar Padron MD [address] [address] ORTHOPAEDICS 03/18/23
--- OUTSIDE RECORDS SUMMARY | 2025-05-08 12:52 | XMS_ITS | Encounter Summary ---
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 Not on file Not on file documented as of this encounter Plan of Treatment Upcoming Encounters Date Type Department Care Team (Late Contact Info) Description 10/02/2025 11:00 AM IRON MINER BLASTING Office Visit [facility] Multispecialty Care - [address], [address] [place] [phone] Kaden Antonio DO [address] [place] [address] documented as of this encounter Visit Diagnoses Not on filedocumented in this encounter Additional Health Concerns Assessment Noted Time PHQ-9 Depression Total Score: 1 05/01/20 21 9:12 AM CDT documented as of this encounter Care Teams Leather Heel Breaster Relationship Specialty Start Date End Date Byron De La Rosa MD [address] [facility] [address] [place] [address] PCP - General FAMILY PRACTICE 06/24/20 Prabhakar Padron MD [address] [facility] [address] [place] [address] ORTHOPAEDICS 03/18/23 documented as of this encounter
--- OUTSIDE RECORDS SUMMARY | 2025-05-08 12:52 | XMS_ITS | Clinical Summary ---
Author Organization [facility] Address [address] [place] [address] Care Team Providers Care Refractory Products Supervisor Name Role Phone Unavailable Primary Care [...] on file Legal Sex Female 10:03 AM WHIPPED TOPPING MIXER Gender Identity Not on file Sexual Orientation [...] Plan of Treatment Not on file Insurance [facility]
--- OUTSIDE RECORDS SUMMARY | 2025-05-08 12:52 | XMS_ITS | Encounter Summary ---
Author Organization [facility] Address [facility] [place] [address] Care Team Providers Care Director Of Teenage Activities Name Role Phone Byron De La Rosa MD Primary Care Provider [phone] Prabhakar Padron MD Unavailable [phone] Reason for Referral * - New Request Specialty Diagnoses / Procedures Referred By Brian lagunas Referred To Contact Diagnoses Moderate persistent asthma with acute exacerbation (HHS/HCC) Procedures Complete PFT (pre/post Lynn, Lung Vol, Diff Capacity) (69359, 17743, 93709, 67738) Kaden Antonio DO [address] [facility] [address] [place] [address] Phone: tel: fax: Referral ID Status Reason Start Date Expiration Date V isits Requested Visits Authorized [id number] New Request 05/08/2025 05/08/2026 1 1 * Procedure (Routine) - New Request Specialty Diagnoses / Procedures Referred By Brian lagunas Referred To Contact Diagnoses Moderate persistent asthma with acute exacerbation (HHS/HCC) Procedures Six Minute Walk (74970) Kaden Antonio DO [address] [facility] [address] [place] [address] Phone: tel: fax: Referral ID Status Reason Start Date Expiration Date V isits Requested Visits Authorized [id number] New Request 05/08/2025 05/08/2026 1 1 Reason for Visit * Reason Comments Follow Up Encounter Details Date Type Department Care Team (Late st Contact Info) Description 05/08/2025 10:10 AM CDT Telemedicine [facility] - 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 Office Visit Timeline: VV 05/08/2025: since last OV pt notes compliance with her inhalers, notes no bronchitis/pna requiring atb or steroids. Using albuterol hfa/nebs like 2-3x per day for the last 2 weeks -- respiratory sx are not controlled. Notes having increased cough, wheezing and ELIZONDO, notes her sputum is increased as well. Notes sx present for the last 2 weeks. -- notes notes having no fever/no chills. Her spo2 levels are down to 91% today at rest. OV 09/28/2024: since last OV pt notes compliance with breo daily, albuterol as needed, notes no bronchitis/pna requiring atb or steroids. Using albuterol rarely -- respiratory sx are controlled. Notes having no new concerns today. . Flonase has helped with congestion, using prn. OV 09/14/23: since last visit, pt had knee surgery for OA, not planning knee replacement per patient. Notes her URI resolved after lat visit, no flare ups, not needing any prednisone. On high breo daily, and using albuterol 3-4 x per week. Currently notes her knee pain limits her mobility, not SOB.Having mild cough/congestion, taking mucinex, helping some. Has flonase, just got it last night, plans to start this. No wheezing. OV 11/04/22: Since last visit patient reports she had been doing very well until 2 days ago when shedeveloped a sore throat, this was followed by a cough, without any increased sputum production thanbaseline, notes no fevers chills, she did have some visitors just after Clear, otherwise she has been trying to not travel and not expose herself to other people. Symptoms are actually improving over the last 24 hours. She notes that her she is compliant with her inhalers without change she is not having to use albuterol more often denies any wheezing. Discussed with patient symptoms are suspicious for viral URI but to contact me if she develops any fever or worsening breathing issues at which time we may treat her with antibiotics and/or steroids. Plan to keep same follow-up visit deniesany other complaints or concerns OV 07/02/22: Since last office visit patient reports that she has not had any asthma exacerbations requiring antibiotics and or steroids. Reports allergies under fair control with Singulair as well. Inthe last few days above Breo inhaler she does note that thinks that she is not getting enough medicine sometimes has to use albuterol more often, discussed that Breo delivers a standard dose and a blister pack should not be affected even on the end of its life. Notes some dyspnea with exertion, denies significant wheezing routinely, intermittently has cough. She has significant joint pain with arthritis, has difficulty ambulating, even with a cane, filled out handicap placard for her today. OV 07/29/21: Since last office visit patient has not had any asthma exacerbations. She did have her CBC done which showed leukocytosis, repeat showed resolution of this today. She did have her allergytesting done which showed slight allergy to dog dander, no elevation of IgE. Her eosinophils on her CBC were also under 150 as well. She is using her Breo daily, using albuterol 1- 2 times a day as well. Planning to spend the winter in [place], will return around January or February of next year. Advised to contact me with any issues. Advised her to lose weight with diet and exercise as able, discussed this will help with her asthma control. Patient declined to get pulmonary function test at this time which is scheduled for later this week, she is very worried about it because she had syncope during the methacholine challenge test in the past and does not want to get another breathing test. Advisedher we can cancel for now but may have to get at least a spirometry in the future if she continues to have asthma flares. OV 05/01/21: Patient reports since last office visit she has had 2 flares of her asthma requiring prednisone therapy, I escalated her to Breo recently as well 200 mcg dose. Since using this reports having to use albuterol less. However notes over the last week she has developed a productive cough of yellow sputum more shortness of breath with exertion. Denies wheezing. No fever chills or night sweats however did note a temperature of 99.2 yesterday. Plan for sputum collection, chest x-ray, will order pulmonary function test as well as we do not have one on file. OV 07/25/20: Since last visit pt reports doing well, >1 year since last exacerbation. No coughing, no wheezing. Denies any nocturnal awakenings. Walks on flat ground >0.5 miles prior to stoppingfor SOB. Uses albuterol inhaler 2-3x per week, will have SOB intermittently and this helps with this. Hx from initial pulmonary visit: Never smoker Imaging reviewed: cxr 05/01/21: 2 views of the chest demonstrate The cardiac silhouette, mediastinal contours, and pulmonary vessels appear normal. The Lungs are clear. No consolidations or effusions are seen. Testing/Data reviewed: Labs: April 2021: Respiratory allergen panel shows slight allergy to dog dander, IgE not elevated Echo: none PFT: Patient had syncope with methacholine challenge test in the past remotely, she is reluctant toget repeat PFT testing for this reason. Sleep Studies: none Past Medical History: Diagnosis Date Anxiety Arthritis Asthma (HHS/HCC) Cataract Dylan lens implants Cervical cancer (CMS/HCC HHS/HCC) 1976 CONFINED TO CERVIX Depression GERD (gastroesophageal reflux disease) Hypertension Neuromuscular disorder ([facility]/HCC HHS/[facility]) Pain in right arm Past Surgical History: Procedure Laterality Date CHOLECYSTECTOMY 08/2022 EYE SURGERY FRACTURE SURGERY HYSTERECTOMY HYST/BSO (CERVICAL CANCER) TONSILLECTOMY t&a Social History Tobacco Use Smoking status: Never Smokeless tobacco: Never Vaping Use Vaping status: Never Used Substance Use Topics Alcohol use: Not Currently Drug use: Never Family History Problem Relation Name Age of Onset Emphysema Mother Kristan Alcohol Abuse Mother Kristan Current Outpatient Medications Medication Sig Dispense Refill albuterol (PROVENTIL) (2.5 MG/3ML) 0.083% nebulizer solution Take 3 mLs (2.5 mg total) by nebulization every 6 (six) hours as needed for Wheezing. 360 mL 6 albuterol sulfate HFA 108 (90 Base) MCG/ACT inhaler INHALE 2 PUFFS INTO THE LUNGS EVERY 6 HOURS NEEDED FOR WHEEZING 25.5 g 2 aspirin EC (ASPIRIN EC) 81 MG tablet citalopram (CELEXA) 20 MG tablet TAKE 1 TABLET(20 MG) BY MOUTH DAILY 90 tablet 1 famotidine (PEPCID) 20 MG tablet Take 1 tablet (20 mg total) by mouth daily. fluticasone furoate-vilanterol (BREO ELLIPTA) 200-25 MCG/ACT inhaler Inhale 1 puff into the lungs daily. 180 each 2 gabapentin (NEURONTIN) 100 MG capsule Take 1 capsule (100 mg total) by mouth 2 (two) times a day. hydroCHLOROthiazide (MICROZIDE) 12.5 MG capsule montelukast (SINGULAIR) 10 MG tablet TAKE 1 TABLET(10 MG) BY MOUTH EVERY NIGHT AT BEDTIME 90 tablet1 omeprazole (PRILOSEC) 20 MG capsule Take 1 capsule (20 mg total) by mouth daily. 30 capsule 0 traMADol (ULTRAM) 50 MG tablet Take 1 tablet (50 mg total) by mouth every 6 (six) hours as needed. valACYclovir (VALTREX) 1 g tablet Take 1 tablet (1,000 mg total) by mouth 3 (three) times daily. 21tablet 0 No current facility-administered medications for this visit. Review of patient's allergies indicates: Allergen Reactions Norepinephrine Bitartrate Anaphylaxis Augmentin [Amoxicillin-Pot Clavulanate] Nausea Only Doxycycline Hives Iodides Hives Lisinopril Nausea Only Raloxifene Nausea Only Septra [Sulfamethoxazole-Trimethoprim] Hives Sulfa Antibiotics Rash Immunization History Administered Date(s) Administered Fluzone High Dose - >Age 65 (Prefilled Syringe) 07/26/2013, 08/15/2015, 08/20/2016, 08/04/2017, 07/17/2019 Influenza (Generic) 07/26/2013 Influenza Adult (Generic) 08/24/2012, 08/03/2014, 07/26/2018, 07/17/2019, 08/08/2020 PFIZER COVID-19 (ORIGINAL FORMULATION, PURPLE CAP) mRNA, LNP-S, PF, 30 MCG/0.3 ML DOSE 01/03/2021, 01/24/2021 Pneumococcal (Pneumovax 23) 11/21/2007 Pneumococcal (Prevnar 13) 10/19/2014 Td (Tenivac) preservative free 09/12/1997, 12/12/2007 Zoster (Zostavax) 42772 Unt/0.65Ml 1939 Review of Systems Constitutional: Negative for malaise/fatigue and weight loss. HENT: Negative for congestion and sore throat. Respiratory: Positive for cough and shortness of breath. Negative for hemoptysis, sputum productionand wheezing. Cardiovascular: Negative for chest pain, palpitations, orthopnea, leg swelling and PND. Musculoskeletal: Positive for joint pain. Endo/Heme/Allergies: Positive for environmental allergies. Psychiatric/Behavioral: The patient does not have insomnia. Physical Exam There were no vitals filed for this visit. GEN: Pleasant, in NAD NEURO: Alert, oriented x3 Above portion of exam is telehealth relevant, below is exam per prior office visits. no focal neurologic deficits noted PSYCH: Affect is normal HEAD: NC, AT EENT: No sinus tenderness to palpation, mallampati 2 NECK: Supple, trachea midline LN: No appreciable cervical lymphadenopathy PULM: CTAB , breathing unlabored. No crackles HEART: normal s1,s2, rrr, no audible murmur GI: non-distended MSK: Normal range of motion of b/l hand/wrist joints without effusion or joint tenderness EXTR: No clubbing, trace BLLE edema Skin: No visible rashes, no visible tattoos Assessment #. Asthma,moderate persistent by hx, not well controlled, in exacerbation -- PFT: Patient had syncope with methacholine challenge test in the past remotely, she is reluctantto get repeat PFT testing for this reason. #. Obesity There is no height or weight on file to calculate BMI. Wt Readings from Last 3 Encounters: 09/28/24 78.9 kg (174 lb) 09/14/23 79 kg (174 lb 1.6 oz) 01/28/23 83.9 kg (185 lb) #. Allergic rhinitis -- On singulair #. OA -- Difficulty ambulating even without cane, cannot walk long distances. Seeing ortho. . Plan -- flonase prn, notes it helps. -- continue singulair. -- stop breo, start trelegy 200mcg dose, 1 puff daily. --weight loss recommended with diet and exercise as able. --Start taking airsupra 2 puffs every 4 hours as needed, rinse and spit after each use. THIS REPLACES YOUR ALBUTEROL. USE IT AT THE FIRST SIGN OF COUGH/WHEEZING/OR RESPIRATORY ILLNESS. ===> use with spacer. -- ordered pft and 6mwt as well. RTC 10/02/25: as planned I introduced and identified myself, received verbal consent from the patient to proceed with this virtual visit and made the patient aware that the same confidentiality and manager business information practices apply. The patient confirmed at the start of this visit that they are completing this visit from Home, currently located in the [facility] [place] [13], a state in which I am licensed to practice. I completed the virtual visit from: [facility] - [address] [facility] [address] Dept: [phone] Dept . The following technology was used to complete this visit: Video & Audio Total time spent on the encounter during the day of service: 21 minutes The following clinical staff helped with this visit MA: Liz. I personally spent a total of 21 minutes on the day of the encounter. This includes khia-ff-dult and efh-qlhz-te-face time I provided on the day of the encounter & excludes time spent performing separately reportable services. Dr. Colt Antonio [facility] Pulmonary Medicine documented in this encounter Plan of Treatment Upcoming Encounters Date Type Department Care Team (Late st Contact Info) Description 10/02/2025 11:00 AM SAFETY AND HEALTH CONSULTANT Office Visit [facility]ispecialty Care - [facility] [address] [place] [phone] Kaden Antonio DO [address] [place] [address] Scheduled Orders Name Type Priority Associated Diagnoses Orde r Schedule Six Minute Walk (19606) PFT Routine Moderate persistent asthma with acute exacerbation (HHS/HCC) Expected: 05/08/2025, Expires: 05/08/2026 Complete PFT (pre/post Lynn, Lung Vol, Diff Capacity) (32542, 13326, 22139, 91778) PFT Routine Moderate persistent asthma with acute exacerbation (HHS/HCC) Expected: 05/08/2025, Expires: 11/08/2026 documented as of this encounter Visit Diagnoses Diagnosis Moderate persistent asthma with acute exacerbation (HHS/HCC)- Primary Allergic rhinitis due to pollen, unspecified seasonality Class 1 obesity due to excess calories with serious comorbidity and body mass index (BMI) of 32.0 to 32.9 in adult documented in this encounter Additional Health Concerns Assessment Noted Time PHQ-9 Depression Total Score: 1 05/01/20 21 9:12 AM CDT documented as of this encounter Care Teams Director Of Teenage Activities Relationship Specialty Start Date End Date Byron De La Rosa MD [address] [address] PCP - General FAMILY PRACTICE 06/24/20 Prabhakar Padron MD [address] [place] [address] ORTHOPAEDICS 03/18/23 documented as of this encounter
--- OUTSIDE RECORDS SUMMARY | 2025-05-08 12:52 | XMS_ITS ---
Author Name ASHLYN OLIVER NP Address [address] [place] [address] Phone [phone] Organization [facility] ([facility]) Care Team Providers Care Senior Environmental Technician Name Role Phone MELODY ASHLYN Unavailable [phone] Everardo Sultana Unavailable Unavailable Unavailable Unavailable Unavailable RAHUL FU Unavailable [phone] Amada Ribera Unavailable [phone] Reason for Referral Not Available Allergies, adverse [...] List Problem Status Onset Date Resolved Date Synopsis Moderate persistent asthma, uncomplicated Active 2024-08-30 N/A N/A Gait abnormality Active 2024-08-30 N/A N/A Major depressive disorder, s mary episode, mild Active 2024-08-30 N/A N/A Essential hypertension Active 2024-08-30 N/A N/ A Primary insomnia Active 2024-08-30 N/A N/A Chronic knee pain Active 2024-08-30 N/A N/A Atherosclerosis of aorta Active 2024-08-30 N/A N/A Inflammatory polyarthropathy Active 2024-08-30 N/A N/A CKD stage 3a, GFR 45-59 ml/min Active 2024-08-30 N/A eGFR 44 (06/2024) Encounters Encounters Type Facility Date of Service [...] new patient requiring medically appropriate examination and low level of medical decision making. If using time, at least 30 minutes total time on encounter [facility] [place] 01/25/2025 Moderate persistent asthma, uncomplicatedUnspecified abnormalities of gait and mobilityMajor depressive disorder, single episode, mildHypertensive chronic kidney disease w stg 1-4/unsp chr kdnyPrimary insomniaPain in unspecified kneeOther chronic painChronic kidney disease, stage 3aInflammatory polyarthropathyBody mass index (BMI) 19 or less, adult Home visit for evaluation and management of new patient requiring medically appropriate examination and low level of medical decision making. If using time, at least 30 minutes total time on encounter [facility] [place] 01/25/2025 Hypertensive chronic kidney disease w stg 1-4/unsp chr kdny Home visit for evaluation and management of new patient requiring medically appropriate examination and low level of medical decision making. If using time, at least 30 minutes total time on encounter [facility] [place] 01/25/2025 Hypertensive chronic kidney disease w stg 1-4/unsp chr kdny Vital Signs Date of Collection Vitals 2024-08-30 10:51:55 Height - 160.02 cmWe ight - 78.93 kgBody Mass Index (BMI) - 30.82 kg/m2BP Diastolic - 70.0 mm[Hg]BP Systolic - 130.0 mm[Hg]Heart Rate - 67.0 /minRespiratory Rate - 18.0 /minBody Temperature - 36.67 CelO2 % BldC Oximetry - 96.0 % 2025-01-25 10:15:00 Height - 414.02 cmWe ight - 78.93 kgBody Mass Index (BMI) - 4.6 kg/m2BP Diastolic - 56.0 mm[Hg]BP Systolic - 122.0 mm[Hg]Heart Rate - 65.0 /minRespiratory Rate - 18.0 /minO2 % BldC Oximetry - 97.0 % Social History Social History Social History Observation Description Effec tive Time Current Smoking Status Never smoker 2025-04-24 5 Sex Female History of Procedures Procedures Service Procedure code Service date Servicing provider Phone# Home visit for evaluation and management of new patient requiring medically appropriate examination and moderate level of medical decision making. If using time, at least 60 minutes [place] on enco [address] 2024-08-30 No Data Available No Data Availa ble Most recent systolic blood pressure 130 -139 mm Hg 3075F 2024-08-30 No Data Available No Data Availa ble Most recent dystolic blood pressure <80 mm Hg 3078F 2024-08-30 No Data Available No Data Availa ble Home visit for evaluation and management of new patient requiring medically appropriate examination and low level of medical decision making. If using time, at least 30 minutes total time on encounter [address] 2025-01-25 No Data Available No Data Availa ble Most recent systolic blood pressure <130 mm Hg 3074F 2025-01-25 No Data Available No Data Availa ble Most recent dystolic blood pressure <80 mm Hg 3078F 2025-01-25 No Data Available No Data Availa ble Functional Status No Information Mental Status No Information Assessments Date of Service Assessments 2024-08-30 10:51:55 Moderate persistent asthma, uncomplicatedGait abnormalityMajor depressive disorder, single episode, mildEssential hypertensionPrimary insomniaChronic knee painAtherosclerosis of aortaCKD stage 3a, GFR 45-59 ml/minInflammatory polyarthropathy 2025-01-25 10:15:00 Moderate persistent asthma, uncomplicatedGait abnormalityMajor depressive disorder, single episode, mildEssential hypertensionPrimary insomniaChronic knee painCKD stage 3a, GFR 45-59 ml/minInflammatory polyarthropathy Plan [...] medications as prescribed and F/U as directed. 2025-01-25 10:15:00 Patient takes albute rol HFA 108 mcg/act [...] as prescribed and F/U as directed.Patient takes mirtazapine 7.5-15mg nightly PRN. Continue taking medications as prescribed and F/U as directed.Patient takes baclofen 5mg BID PRN and tramadol 50mg Q6 PRN. Continue taking medications as prescribed and F/U as directed.GFR 44 (06/2024). Monitored by PCP. Encouraged increased water intake.Patient [...] F/U as directed. Health Concerns Date Concern 2025-01-25 [facility] is a service that involves [...] share any relevant findings from the examination. 2025-01-25 Recommendations:None at this time 2025-01-25 Patient is a 84yr ol d female. They are being seen today for a [facility] comprehensive exam. Patient denies any current concerns or symptoms. They deny any recent hospitalizations, injury, or falls. Was recently treated for a UTI with ciprofloxacin and cephalexin; symptoms resolved. Current diagnoses and medications are as listed below. Patient lives with self majority of the time, but currently has her daughter in law living with her. She is independent with her care. She does use a wheeled walker for ambulation
--- NOTE | 2025-05-08 15:00 | NEURO_ITS ---
Impression: # Complains of Numbness of hands # Bilateral Carpal Tunnel Syndrome, Left more than Right # Bilateral Ulnar Neuropathy, Left more than Right more localizing # Normal Needle/EMG exam Nerve Conduction Studies ?Stim Site NR Peak (ms) P-T Amp (?V) Site1 Site2 Delta-P (ms) Dist (cm) Harvey (m/s) Left Median Anti Sensory (2-3nd Digit) Wrist ? 5.1 14.0 Wrist 2-3nd Digit 5.1 14.0 27 Wrist ? 5.6 17.5 Wrist 2-3nd Digit 5.1 14.0 27 Right Median Anti Sensory (2-3nd Digit) Wrist ? 4.2 15.0 Wrist 2-3nd Digit 4.2 14.0 33 Wrist ? 4.9 9.3 Wrist 2-3nd Digit 4.2 14.0 33 Left Radial Anti Sensory (Base 1st Digit) Wrist ? 2.2 24.0 Wrist Base 1st Digit 2.2 0.0 Right Radial Anti Sensory (Base 1st Digit) Wrist ? 3.0 11.1 Wrist Base 1st Digit 3.0 0.0 Left Ulnar Anti Sensory (5th Digit) Wrist ? 3.6 37.9 Wrist 5th Digit 3.6 14.0 39 Right Ulnar Anti Sensory (5th Digit) Wrist ? 2.8 46.3 Wrist 5th Digit 2.8 14.0 50 ?Stim Site NR Onset (ms) O-P Amp (mV) Site1 Site2 Delta-0 (ms) Dist (cm) Harvey (m/s) Left Median Motor (Abd Poll Brev) Wrist ? 5.0 1.3 Elbow Wrist 4.7 27.0 57 Elbow ? 9.7 1.1 Right Median Motor (Abd Poll Brev) Wrist ? 3.4 4.2 Elbow Wrist 5.1 27.0 53 Elbow ? 8.5 3.6 Left Ulnar Motor (Abd Dig Minimi) Wrist ? 2.1 4.9 A Elbow Wrist 5.7 28.0 49 A Elbow ? 7.8 2.1 B Elbow Wrist 3.8 21.0 55 B Elbow ? 5.9 2.1 Right Ulnar Motor (Abd Dig Minimi) Wrist ? 2.7 4.9 A Elbow Wrist 5.3 27.0 51 A Elbow ? 8.0 4.2 B Elbow Wrist 4.3 21.0 49 B Elbow ? 7.0 4.1 Electromyography ?Side Muscle Nerve Root Ins Act Fibs Amp Dur Recrt Comment Right 1stDorInt Ulnar C8-T1 Nml Nml Nml Nml Nml Right Ext Indicis Radial (Post Int) C7-8 Nml Nml Nml Nml Nml Right Ext Digitorum Radial (Post Int) C7-8 Nml Nml Nml Nml Nml Right BrachioRad Radial C5-6 Nml Nml Nml Nml Nml Right PronatorTeres Median C6-7 Nml Nml Nml Nml Nml Right Abd Poll Brev Median C8-T1 Nml Nml Nml Nml Nml Right ABD Dig Min Ulnar C8-T1 Nml Nml Nml Nml Nml Right FlexPolLong Median (Ant Int) C7-8 Nml Nml Nml Nml Nml Right Abd Poll Long Radial (Post Int) C7-8 Nml Nml Nml Nml Nml Left 1stDorInt Ulnar C8-T1 Nml Nml Nml Nml Nml Left Ext Indicis Radial (Post Int) C7-8 Nml Nml Nml Nml Nml Left Ext Digitorum Radial (Post Int) C7-8 Nml Nml Nml Nml Nml Left BrachioRad Radial C5-6 Nml Nml Nml Nml Nml Left PronatorTeres Median C6-7 Nml Nml Nml Nml Nml Left Abd Poll Brev Median C8-T1 Nml Nml Nml Nml Nml Left ABD Dig Min Ulnar C8-T1 Nml Nml Nml Nml Nml Left FlexPolLong Median (Ant Int) C7-8 Nml Nml Nml Nml Nml Left Abd Poll Long Radial (Post Int) C7-8 Nml Nml Nml Nml Nml
== END 2025-05-08 12:45 | disposition home or self-care (01) ==
PROVIDERS: PCP Family Medicine; Visit Provider Orthopaedic Surgery
DX: G56.03 Carpal tunnel syndrome, bilateral upper limbs (principal); G56.23 Lesion of ulnar nerve, bilateral upper limbs
CPT/HCPCS: 95886; 95911